=== PATIENT | male | born 1960 | race African-American/Black ===

== ENCOUNTER 2019-01-05 05:42 | Emergency (ER) | payer BC ==
[2019-01-05] MEDS ORDERED: ALBUTEROL 2.5 MG/3 ML NEB SOL ONE (07:24)
[2019-01-05] MEDS ORDERED: HYDROCODONE/CHLORPHEN 5 ML/OSYR ONE (07:25)
[2019-01-05] MEDS ORDERED: IPRATROPIUM BROM 0.5MG/2.5ML ONE (07:25)
[2019-01-05 07:47] LABS: Absolute Lymphocytes (CBC) 2.5 K/uL (0.7-4.9); Absolute Monocytes 0.9 K/uL (0.1-1.3); Basophils % 0.5 % (0-1.3); Eosinophils % 6.8 % (0-4.4); Hematocrit 43.1 % (39.6-49.0); Lymphocytes % 36.5 % (15.3-44.8); MPV 10.5 fL (7.6-11.3); Monocytes % 12.6 % (3.3-12.3); RBC Red Blood Cell Count 4.81 M/uL (4.33-5.43)
[2019-01-05 07:48] LABS: Protime INR 1.11
[2019-01-05 08:00] LABS: ALT/SGPT 94 U/L (12-78); AST/SGOT 72 U/L (15-37); Albumin 3.4 g/dL (3.4-5.0); Alkaline Phosphatase 75 U/L (45-117); BUN Blood Urea Nitrogen 13 mg/dL (7-18); Bicarbonate 29 mmol/L (21-32); Bilirubin Direct 0.1 mg/dL (0-0.2); Bilirubin Total 0.5 mg/dL (0.2-1.0); Glucose Level 101 mg/dL (74-106); NT PRO-BNP 47 pg/mL (<125); Potassium 3.7 mmol/L (3.5-5.1); Protein, Total 7.4 g/dL (6.4-8.2); Sodium Level 139 mmol/L (136-145); Troponin (Emerg Dept Use Only) < 0.02 ng/mL (0.0-0.045)
--- NOTE | 2019-01-05 08:16 | RAD REPORT ---
EXAM DESCRIPTION: RAD - Chest Pa And Lat (2 Views) - 01/05/2019 6:54 am CLINICAL HISTORY: COUGH Chest pain. COMPARISON: Chest Single View dated 10/12/2016; CHEST SINGLE VIEW dated 12/06/2015; CHEST SINGLE VIEW dated 05/29/2014; CHEST SINGLE VIEW dated 10/19/2013 FINDINGS: The lungs are clear. Chronic blunting the left costophrenic angle noted, likely pleural th ickening. The heart is mildly prominent size. No displaced fractures. IMPRESSION: No acute process demonstrated.
--- NOTE | 2019-01-05 08:34 | ER ---
Nurse's Notes [facility] Name: Cristopher Larson Age: 58 yrs Sex: Male : 1960 Arrival Date: 01/05/2019 Time: 05:46 Bed 5 Private MD: Jose Antonio Mccollum R Diagnosis: Acute bronchitis Presentation: 01/05 06:05 Presenting complaint: Patient states: "I have had real bad chest congestion and I have jd3 been running a fever off an on.". Transition of care: patient was not received from another setting of care. Onset of symptoms was January 05, 2019. Risk Assessment: Do you want to hurt yourself or someone else? Patient reports no desire to harm self or others. Initial Sepsis Screen: Does the patient meet any 2 criteria? No. Patient's initial sepsis screen is negative. Does the patient have a suspected source of infection? No. Patient's initial sepsis screen is negative. Care prior to arrival: None. 06:05 Method Of Arrival: Ambulatory jd3 06:05 Acuity: MARTY 3 jd3 Historical: - Allergies: 06:11 No Known Allergies; jd3 - Home Meds: 06:11 Albuterol Inhl [Active]; lisinopril-hydrochlorothiazide Oral 1 tab [Active]; Symbicort jd3 inhalation inhalation [Active]; Zolpidem Tartrate Oral [Active]; Omeprazole Oral [Active]; meloxicam oral oral [Active]; epclusa for hep C [Active]; - PMHx: 06:11 Hypertension; Hepatitis; Asthma; jd3 - PSHx: 06:11 left shoulder; jd3 - Immunization history:: Adult Immunizations up to date. - Social history:: Smoking status: Patient/guardian denies using tobacco. - Ebola Screening: : Patient negative for fever greater than or equal to 101.5 degrees Fahrenheit, and additional compatible Ebola Virus Disease symptoms. Screenin:14 Abuse screen: Denies threats or abuse. Nutritional screening: No deficits noted. jd3 Tuberculosis screening: No symptoms or risk factors identified. Fall Risk Ambulatory Aid- None/Bed Rest/Nurse Assist (0 pts). Gait- Normal/Bed Rest/Wheelchair (0 pts) Mental Status- Oriented to own ability (0 pts). Total Gooden Fall Scale indicates No Risk (0-24 pts). Assessment: 06:12 General: Appears in no apparent distress. uncomfortable, Behavior is calm, cooperative, jd3 appropriate for age. Pain: Complains of pain in chest Quality of pain is described as aching, pressure. Neuro: Level of Consciousness is awake, alert, obeys commands, Oriented to person, place, time, situation, Appropriate for age. Cardiovascular: Capillary refill < 3 seconds Patient's skin is warm and dry. Respiratory: Reports cough that is productive, pain with cough Airway is patent Respiratory effort is even, unlabored, Respiratory pattern is regular, symmetrical. GI: No signs and/or symptoms were reported involving the gastrointestinal system. : No signs and/or symptoms were reported regarding the genitourinary system. EENT: No signs and/or symptoms were reported regarding the EENT system. Derm: Skin is intact, Skin is dry, Skin is normal, Skin temperature is warm. Musculoskeletal: Circulation, motion, and sensation intact. Range of motion: intact in all extremities. 07:20 General: Appears in no apparent distress. comfortable, well developed, Behavior is sv calm, cooperative, appropriate for age. Pain: Complains of pain in chest Pain currently is 7 out of 10 on a pain scale. Quality of pain is described as aching, pressure, Is intermittent, episodic, Aggravated by coughing. Neuro: Level of Consciousness is awake, alert, obeys commands, Oriented to person, place, time, situation, Moves all extremities. Full function Gait is steady. Respiratory: Airway is patent Respiratory effort is even, unlabored, Respiratory pattern is regular, symmetrical. Derm: Skin is pink, warm \\T\\ dry. Musculoskeletal: Range of motion: intact in all extremities. 08:47 Reassessment: Patient appears in no apparent distress at this time. No changes from sv previously documented assessment. Patient and/or family updated on plan of care and expected duration. Pain level reassessed. Patient is alert, oriented x 3, equal unlabored respirations, skin warm/dry/pink. Vital Signs: 06:11 BP 141 / 86; Pulse 57; Resp 17 S; Temp 98.2(O); Pulse Ox 97% on R/A; Weight 90.72 kg jd3 (R); Height 5 ft. 7 in. (170.18 cm) (R); Pain 7/10; 07:34 BP 144 / 82; Pulse 60; Resp 18; Pulse Ox 95% on R/A; sv 08:33 BP 136 / 97; Pulse 60; Resp 15; Pulse Ox 100% ; sv 06:11 Body Mass Index 31.32 (90.72 kg, 170.18 cm) jd3 ED Course: 05:46 Patient arrived in ED. es 05:47 Jose Antonio Mccollum MD is Private Physician. es 06:05 Sean Larson RN is Primary Nurse. jd3 06:06 Triage completed. jd3 06:12 Arm band placed on. jd3 06:14 Patient has correct armband on for positive identification. Bed in low position. Call jd3 light in reach. Side rails up X 1. Adult w/ patient. 06:23 Wesley Velarde PA is PHCP. cp 06:23 Raz Roman MD is Attending Physician. cp 06:48 Patient moved to radiology via wheelchair. jb2 06:50 X-ray completed. Patient tolerated procedure well. Patient moved back from radiology. jb2 06:51 XRAY Chest Pa And Lat (2 Views) In Process Unspecified. EDMS 07:25 Initial lab(s) drawn, by wy, sent to lab. Flu and/or RSV swab sent to lab. Strep swab sv sent to lab. Inserted saline lock: 20 gauge in right antecubital area, using aseptic technique. Blood collected. Flushed right antecubital with 5 ml normal saline. 07:34 Influenza Screen (a \\T\\ B) Sent. sv 07:35 Primary Nurse role handed off by Sean Larson, BRIDGER sv 07:35 Gina Evans, BRIDGER is Primary Nurse. sv 07:37 EKG done, by air conditioning technician. reviewed by Wesley BRADSHAW. at1 08:01 Throat Culture Sent. sv 08:03 Awaiting lab results, Awaiting radiology results. sv 08:34 Jose Antonio Mccollum MD is Referral Physician. cp 08:47 No provider procedures requiring assistance completed. IV discontinued, intact, sv bleeding controlled, No redness/swelling at site. Pressure dressing applied. Administered Medications: 07:20 Drug: Albuterol 2.5 mg Route: Inhalation; sv 07:20 Drug: AtroVENT Aerosol 0.5 mg Route: Inhalation; sv 07:20 Drug: Tussionex Pennkinetic ER 5 ml Route: PO; sv 08:00 Follow up: Response: No adverse reaction sv Outcome: 08:34 Discharge ordered by . cp 08:48 Discharged to home ambulatory, with family. sv 08:48 Condition: stable 08:48 Discharge instructions given to patient, family, Instructed on discharge instructions, follow up and referral plans. medication usage, Demonstrated understanding of instructions, follow-up care, medications, Prescriptions given X 3. 08:50 Patient left the ED. sv Signatures: Dispatcher [employer] Gina Tompkins, RN RN Martina Lynch Jesse jb2 Kerline Perkins, staff air defense officer EKG Tat1 Wesley Velarde PA PA cp Davies, Jonathon RN RN jd3
--- NOTE | 2019-01-05 08:35 | EDPHYS ---
Physician Documentation [facility] Name: Cristopher Larson Age: 58 yrs Sex: Male : 1960 Arrival Date: 01/05/2019 Time: 05:46 Bed 5 Private MD: Jose Antonio Mccollum R ED Physician Raz Roman HPI: 01/05 06:45 This 58 yrs old Black Male presents to ER via Ambulatory with complaints of Fever, cp Chest Congestion, Chills. 06:45 The patient reports fever, not measured (subjective). Onset: The symptoms/episode cp began/occurred 2 day(s) ago. Associated signs and symptoms: Pertinent positives: cough, sore throat, chest congestion. Severity of symptoms: in the emergency department the symptoms are unchanged despite home interventions. Historical: - Allergies: 06:11 No Known Allergies; jd3 - Home Meds: 06:11 Albuterol Inhl [Active]; lisinopril-hydrochlorothiazide Oral 1 tab [Active]; Symbicort jd3 inhalation inhalation [Active]; Zolpidem Tartrate Oral [Active]; Omeprazole Oral [Active]; meloxicam oral oral [Active]; epclusa for hep C [Active]; - PMHx: 06:11 Hypertension; Hepatitis; Asthma; jd3 - PSHx: 06:11 left shoulder; jd3 - Immunization history:: Adult Immunizations up to date. - Social history:: Smoking status: Patient/guardian denies using tobacco. - Ebola Screening: : Patient negative for fever greater than or equal to 101.5 degrees Fahrenheit, and additional compatible Ebola Virus Disease symptoms. ROS: 07:00 Constitutional: Positive for body aches, Negative for fever, poor PO intake. cp 07:00 Eyes: Negative for injury, pain, redness, and discharge. cp 07:00 ENT: Positive for sore throat, Negative for ear pain, difficulty swallowing, difficulty cp handling secretions. 07:00 Cardiovascular: Negative for chest pain, edema. 07:00 Respiratory: Positive for cough, "sounds productive". 07:00 Abdomen/GI: Negative for vomiting, diarrhea, constipation. 07:00 Skin: Negative for rash. 07:00 Neuro: Negative for altered mental status, headache. 07:00 All other systems are negative. Exam: 07:05 Head/Face: Normocephalic, atraumatic. cp 07:05 Constitutional: The patient appears in no acute distress, alert, awake, non-diaphoretic, non-toxic, well developed, well nourished. 07:05 Eyes: Periorbital structures: appear normal, Conjunctiva: normal, no exudate, no injection, Sclera: no appreciated abnormality, Lids and lashes: appear normal, bilaterally. 07:05 ENT: External ear(s): are unremarkable, Ear canal(s): are normal, clear, TM's: bulging, is not appreciated, bilaterally, dullness, bilaterally, erythema, is not appreciated, bilaterally, Nose: is normal, Mouth: Lips: moist, Oral mucosa: moist, Posterior pharynx: Airway: no evidence of obstruction, patent, Tonsils: no enlargement, no exudate, Uvula: midline, erythema, that is mild, exudate, is not appreciated. 07:05 Neck: ROM/movement: is normal, is supple, without pain, no range of motions limitations, no meningismus, no nuchal rigidity. 07:05 Chest/axilla: Inspection: normal, Palpation: is normal, no crepitus, no tenderness. 07:05 Cardiovascular: Rate: bradycardic, Rhythm: regular, Edema: is not appreciated, JVD: is not appreciated. 07:05 Respiratory: the patient does not display signs of respiratory distress, Respirations: cp normal, no retractions, no splinting, no tachypnea, labored breathing, is not present, Breath sounds: stridor, is not appreciated, + upper airway congestion. wheezing: that is mild, is heard diffusely. 07:05 Abdomen/GI: Inspection: abdomen appears normal, Bowel sounds: active, all quadrants, Palpation: abdomen is soft and non-tender, in all quadrants, involuntary guarding, is not appreciated. 07:05 Back: pain, is absent, ROM is normal. 07:05 Skin: cellulitis, is not appreciated, no rash present. 07:05 Neuro: Orientation: to person, place \\T\\ time. Mentation: is normal, Cerebellar function: is grossly normal, Motor: moves all fours, strength is normal, Sensation: is normal. Vital Signs: 06:11 BP 141 / 86; Pulse 57; Resp 17 S; Temp 98.2(O); Pulse Ox 97% on R/A; Weight 90.72 kg jd3 (R); Height 5 ft. 7 in. (170.18 cm) (R); Pain 7/10; 07:34 BP 144 / 82; Pulse 60; Resp 18; Pulse Ox 95% on R/A; sv 08:33 BP 136 / 97; Pulse 60; Resp 15; Pulse Ox 100% ; sv 06:11 Body Mass Index 31.32 (90.72 kg, 170.18 cm) jd3 MDM: 06:23 Patient medically screened. cp 07:00 Differential diagnosis: viral Infection, bacterial infection, pneumonia influenza, CHF. cp 08:33 Data reviewed: vital signs, nurses notes, lab test result(s), EKG, radiologic studies, cp plain films, and as a result, I will discharge patient. 08:33 Test interpretation: by ED physician or midlevel provider: ECG, plain radiologic cp studies. 08:33 Counseling: I had a detailed discussion with the patient and/or guardian regarding: the cp historical points, exam findings, and any diagnostic results supporting the discharge/admit diagnosis, lab results, radiology results, to return to the emergency department if symptoms worsen or persist or if there are any questions or concerns that arise at home. Response to treatment: the patient's symptoms have markedly improved after treatment, and as a result, I will discharge patient. 01/05 06:42 Order name: Influenza Screen (a \\T\\ B) 01/05 06:42 Order name: Strep; Complete Time: 08:18 01/05 06:42 Order name: Basic Metabolic Panel; Complete Time: 08:18 01/05 06:42 Order name: CBC with Diff; Complete Time: 08:18 01/05 08:31 Interpretation: Normal except: MN% 12.6; EOSINOPHIL % 6.8. 01/05 06:42 Order name: LFT's; Complete Time: 08:18 01/05 08:31 Interpretation: Normal except: AST 72; ALT 94; GLOB 4.0; A/G 0.9. 01/05 06:42 Order name: Magnesium; Complete Time: 08:18 01/05 06:42 Order name: XRAY Chest Pa And Lat (2 Views); Complete Time: 08:18 01/05 06:42 Order name: NT PRO-BNP; Complete Time: 08:18 cp 01/05 06:42 Order name: PT-INR; Complete Time: 08:18 cp 01/05 06:42 Order name: Troponin (emerg Dept Use Only); Complete Time: 08:18 cp 01/05 06:43 Order name: Influenza Screen (A ; Complete Time: 08:18 EDMS 01/05 07:59 Order name: Throat Culture EDMS 01/05 06:42 Order name: EKG; Complete Time: 06:43 cp 01/05 06:42 Order name: Cardiac monitoring; Complete Time: 07:34 cp 01/05 06:42 Order name: EKG - Nurse/Tech; Complete Time: 07:34 cp 01/05 06:42 Order name: IV Saline Lock; Complete Time: 07:34 cp 01/05 06:42 Order name: Labs collected and sent; Complete Time: 07:34 cp 01/05 06:42 Order name: O2 Per Protocol; Complete Time: 06:59 cp 01/05 06:42 Order name: O2 Sat Monitoring; Complete Time: 06:59 cp Administered Medications: 07:20 Drug: Albuterol 2.5 mg Route: Inhalation; sv 07:20 Drug: AtroVENT Aerosol 0.5 mg Route: Inhalation; sv 07:20 Drug: Tussionex Pennkinetic ER 5 ml Route: PO; sv 08:00 Follow up: Response: No adverse reaction sv Disposition: 23:20 Co-signature as Attending Physician, Raz Roman MD. gs Disposition: 01/05/19 08:34 Discharged to Home. Impression: Acute bronchitis. - Condition is Stable. - Discharge Instructions: Acute Bronchitis, Adult. - Prescriptions for Tessalon Perles 100 mg Oral Capsule - take 2 capsule by ORAL route every 8 hours As needed; 20 capsule. Zithromax Z- Tree 250 mg Oral Tablet - take 1 tablet by ORAL route as directed for 5 days Day 1 - take two (2) tablets one time. Day 2, 3, 4 , 5 take one (1) tablet once daily.; 6 tablet. Medrol (Tree) 4 mg Oral Tablets, Dose Pack - take 1 tablet by ORAL route as directed - follow package instructions; 1 packet. - Work release form, Medication Reconciliation Form, Thank You Letter, Antibiotic Education, Prescription Opioid Use form. - Follow up: Jose Antonio Mccollum MD; When: 2 - 3 days; Reason: Recheck today's complaints. - Problem is new. - Symptoms have improved. Signatures: Dispatcher [employer] Gina Tompkins, RN RN Wesley Ferris PA PA cp Starr, Gregory, MD MD gs Davies, Jonathon, RN RN jd3 Corrections: (The following items were deleted from the chart) 08:50 08:34 01/05/2019 08:34 Discharged to Home. Impression: Acute bronchitis. Condition is sv Stable. Forms are Medication Reconciliation Form, Thank You Letter, Antibiotic Education, Prescription Opioid Use. Follow up: Jose Antonio Mccollum; When: 2 - 3 days; Reason: Recheck today's complaints. Problem is new. Symptoms have improved. cp
[2019-01-05 09:11] VITALS: TEMP 98.2
[2019-01-05 09:13] VITALS: BP 136/97; O2SAT 100
--- NOTE | 2019-01-06 10:29 | EKG ---
Test Date: 2019-01-05 Test Time: 07:33:03 [employer]sembler [employer] Line: FLORI MEASUREMENT RESULTS: Intervals: Rate: 52 WI: 146 QRSD: 150 QT: 492 QTc: 457 [place]: P: 23 WI: 146 QRS: 29 T: -39 INTERPRETIVE STATEMENTS: Sinus bradycardia Right bundle branch block T wave abnormality, consider inferolateral ischemia Abnormal ECG Compared to ECG 10/12/2016 09:04:17 Right bundle-branch block now present T-wave abnormality still present Possible ischemia still present Electronically Signed On 01-05-19 08:08:44 CDT by Carlos Eduardo Bradford
== END 2019-01-05 08:50 | disposition home or self-care (01) ==
LOC: ER 05:42
DX: J20.9 Acute bronchitis, unspecified (principal); I10 Essential (primary) hypertension; J45.909 Unspecified asthma, uncomplicated
CPT/HCPCS: 36415; 71046; 80048; 80076; 83735; 83880; 84484; 85025; 85610; 87070; 87081; 87804; 93005; 99284

== ENCOUNTER 2019-04-19 06:18 | Emergency (ER) | payer BC ==
[2019-04-19 07:11] LABS: Absolute Lymphocytes (CBC) 2.8 K/uL (0.7-4.9); Basophils % 0.5 % (0-1.3); Eosinophils % 8.1 % (0-4.4); Hematocrit 42.5 % (39.6-49.0); Lymphocytes % 40.3 % (15.3-44.8); MPV 10.5 fL (7.6-11.3); Monocytes % 10.6 % (3.3-12.3); RBC Red Blood Cell Count 4.63 M/uL (4.33-5.43)
[2019-04-19 07:12] LABS: Protime INR 0.99
--- NOTE | 2019-04-19 07:18 | RAD REPORT ---
EXAM DESCRIPTION: CT - Ct Stroke Brain Wo Cont - 04/19/2019 6:52 am CLINICAL HISTORY: Weakness, dizziness, altered mental status CLINICAL HISTORY: None. TECHNIQUE: Axial 5 millimeter thick images of the head were obtained without IV contrast. All CT scans are performed using dose optimization technique as appropriate and may include automated exposure control or mA/KV adjustment according to patient size. FINDINGS: No intracranial hemorrhage, mass, or cerebral edema. No acute infarction identifiable. No extra-axial fluid collections. Cadet matter-white matter differentiation is preserved. Visualized portions of the mastoid air cells, paranasal sinuses, and orbits are unremarkable. Findings telephoned to the referring clinician [id number] hours IMPRESSION: No CT evidence of acute intracranial process.
[2019-04-19 07:20] LABS: BUN Blood Urea Nitrogen 16 mg/dL (7-18); Bicarbonate 27 mmol/L (21-32); Creatine Phosphokinase 993 U/L (39-308); Glucose Level 105 mg/dL (74-106); Potassium 3.6 mmol/L (3.5-5.1); Sodium Level 140 mmol/L (136-145)
[2019-04-19 08:06] LABS: Barbiturates NEGATIVE (NEGATIVE); Benzodiazepines NEGATIVE (NEGATIVE); Cocaine NEGATIVE (NEGATIVE); METHAMPHETAM NEGATIVE (NEGATIVE); Methadone NEGATIVE (NEGATIVE); Opiates NEGATIVE (NEGATIVE); Phencyclidine NEGATIVE (NEGATIVE); THC Cannibis NEGATIVE (NEGATIVE)
[2019-04-19] MEDS ORDERED: NA CHLORIDE 0.9% 1,000 ML ONE (08:07)
[2019-04-19 08:15] LABS: Troponin (Emerg Dept Use Only) < 0.02 ng/mL (0.0-0.045)
[2019-04-19 08:20] LABS: CKMB Creatine Kinase MB 10.8 ng/mL (0.3-3.6)
--- NOTE | 2019-04-19 09:15 | RAD REPORT ---
EXAM DESCRIPTION: RAD - Chest Single View - 04/19/2019 7:04 am CLINICAL HISTORY: Stroke protocol chest film, shortness of breath COMPARISON: December 2018 TECHNIQUE: AP portable chest image was obtained 0659 hours . FINDINGS: Lungs are clear. Heart and vasculature are normal. No measurable pleural effusion and no p neumothorax. No acute bony abnormality seen. No acute aortic findings suspected. IMPRESSION: No acute cardiopulmonary process. No significant interval change.
[2019-04-19 09:26] LABS: Urine Blood TRACE (NEG); Urine Glucose NEGATIVE (NEG); Urine Protein 2+ (NEG)
--- NOTE | 2019-04-19 09:57 | RAD REPORT ---
EXAM DESCRIPTION: MRI - Brain Wo Cont - 04/19/2019 9:41 am CLINICAL HISTORY: Weakness, dizziness, stroke-like symptoms COMPARISON: CT head April 19 TECHNIQUE: Sagittal T1-weighted images were obtained along with axial PD, heavily T2-weighted and T2 -FLAIR images. Axial DWI and ADC mapping sequences were also obtained along with coronal heavily T2-w eighted images. FINDINGS: No intracranial hemorrhage, mass or acute infarction. There is no edema or shift of midlin e structures. No extra-axial fluid collections. Cadet-matter/white matter junction is preserved. Signa l voids are seen as a normal finding in the major intracranial vessels. No atrophy or chronic ischemic changes. No sella or supra sella suspicious finding. Pituitary gland i s upper normal. Mastoid air cells and paranasal sinuses are clear. IMPRESSION: No acute infarction changes. No acute intracranial finding.
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
[2019-04-19 10:32] VITALS: TEMP 98.4
[2019-04-19 10:36] VITALS: BP 143/81; O2SAT 97
--- NOTE | 2019-04-19 14:49 | EKG ---
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
== END 2019-04-19 10:21 | disposition home or self-care (01) ==
LOC: ER 06:18
DX: R42 Dizziness and giddiness (principal); R53.1 Weakness; J45.909 Unspecified asthma, uncomplicated; I10 Essential (primary) hypertension; K75.9 Inflammatory liver disease, unspecified
CPT/HCPCS: 36415; 70450; 70551; 71045; 80048; 80307; 81003; 82140; 82550; 82553; 82962; 84484; 85025; 85610; 85730; 93005; 96360; 99285; J7030

== ENCOUNTER 2020-06-24 19:56 | Emergency (ER) | payer BC ==
[2012-07-14 08:03] VITALS: BP 142/98
[2020-06-24 20:47] LABS: Absolute Lymphocytes (CBC) 2.2 K/uL (0.7-4.9); Basophils % 0.8 % (0-1.3); Hematocrit 42.6 % (39.6-49.0); MPV 10.7 fL (7.6-11.3); RBC Red Blood Cell Count 4.78 M/uL (4.33-5.43)
[2020-06-24 20:50] LABS: Protime INR 1.02
[2020-06-24 20:58] LABS: BUN Blood Urea Nitrogen 14 mg/dL (7-18); Bicarbonate 27 mmol/L (21-32); Glucose Level 95 mg/dL (74-106); Potassium 3.6 mmol/L (3.5-5.1); Sodium Level 141 mmol/L (136-145)
[2020-06-24 21:14] LABS: Platelet Estimate ADEQ; White Blood Cell Scan OK
[2020-06-24 21:15] LABS: Blood Morphology Comment NOT SEEN (NOT SEEN); Platelets, Giant NOTED
[2020-06-24] MEDS ORDERED: ONDANSETRON 4 MG/2 ML VIAL ONE (21:19)
[2020-06-24] MEDS ORDERED: TETANUS & DIPHTHERIA TOX,ADULT 0.5 ML VIAL ONE (21:19)
[2020-06-24] MEDS ORDERED: MORPHINE 4 MG/ML SYR ONE (21:19)
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
[2020-06-25] MEDS ORDERED: MORPHINE 2 MG/ML SYR ONE (02:26)
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
== END 2020-06-25 02:43 | disposition short-term general hospital (02) ==
LOC: ER 19:56
DX: S13.100A Subluxation of unspecified cervical vertebrae, initial encounter (principal); S02.30XA Fracture of orbital floor, unspecified side, initial encounter for closed fracture; V28.0XXA Motorcycle driver injured in noncollision transport accident in nontraffic accident, initial encounter; I10 Essential (primary) hypertension; Z23 Encounter for immunization
CPT/HCPCS: 85025; 80048; 36415; 86900; 86850; 85610; 82565; 86901; 85730; 70450; 72125; 71260; 70486; 76377; 74177; 73130 ×2; 73110; 73562; 90714; Q9967; J2270; J2405; 90471; 96374; 96375; 99285

== ENCOUNTER 2021-02-03 21:10 | Emergency (ER) | payer BC ==
[2012-07-14 08:03] VITALS: BP 142/98
--- OUTSIDE RECORDS SUMMARY | 2021-02-03 21:13 | XMS REPORT | Continuity of Care Document ---
:1960 Author Organization [facility] t Address [address] [place] [address] Care Team Providers Name Role Phone Unavailable Unavailable Unavailable Problems This patient has no known problems. Allergies, Adverse Reactions, Alerts This patient has no known allergies or adverse reactions. Medications This patient has no known medications. Procedures This patient has no known procedures. Encounters Start End Encounter Admission Attending Care Care Encounter Source Date/Time Date/Time Type Type Clinicians Facility Department ID 2021-01-17 2021-01-17 [id number] 2020-10-05 2020-10-05 [facility] [id number] 2020-09-14 2020-09-14 [facility] [id number] [facility] 2020-08-31 2020-08-31 [facility] [id number] [facility] 2020-08-28 2020-08-28 [facility] [id number] 2020-08-24 2020-08-[facility] [id number] Results This patient has no known results.
[2021-02-03 23:29] LABS: Absolute Lymphocytes (CBC) 2.3 K/uL (0.7-4.9); Basophils % 0.6 % (0-1.3); Hematocrit 37.6 % (39.6-49.0); Lymphocytes % 27.6 % (15.3-44.8); MPV 9.7 fL (7.6-11.3); RBC Red Blood Cell Count 4.18 M/uL (4.33-5.43)
[2021-02-03 23:43] LABS: ALT/SGPT 38 U/L (12-78); AST/SGOT 31 U/L (15-37); Albumin 3.6 g/dL (3.4-5.0); Alkaline Phosphatase 79 U/L (45-117); BUN Blood Urea Nitrogen 14 mg/dL (7-18); Bicarbonate 29 mmol/L (21-32); Bilirubin Direct < 0.1 mg/dL (0-0.2); Bilirubin Total 0.3 mg/dL (0.2-1.0); Glucose Level 115 mg/dL (74-106); Magnesium 1.9 mg/dL (1.8-2.4); NT PRO-BNP 35 pg/mL (<125); Potassium 3.6 mmol/L (3.5-5.1); Protein, Total 7.5 g/dL (6.4-8.2); Sodium Level 143 mmol/L (136-145); Troponin (Emerg Dept Use Only) < 0.02 ng/mL (0.0-0.045)
[2021-02-03 23:49] LABS: Protime INR 1.08
[2021-02-04] MEDS ORDERED: FUROSEMIDE 20 MG/ 2ML VIAL ONE (00:46)
--- NOTE | 2021-02-04 01:04 | ER ---
Nurse's Notes [facility] Name: Cristopher Larson Age: 60 yrs Sex: Male : 1960 Arrival Date: 02/03/2021 Time: 21:12 Bed 5 Private MD: Diagnosis: Edema, unspecified Presentation: 02/03 21:56 Chief complaint: Patient states: he is having shortness of breath, fatigue, swelling of bb the lower extremities for "some days". Coronavirus screen: At this time, the client does not indicate any symptoms associated with coronavirus-19. Ebola Screen: No symptoms or risks identified at this time. Initial Sepsis Screen: Does the patient meet any 2 criteria? No. Patient's initial sepsis screen is negative. Does the patient have a suspected source of infection? No. Patient's initial sepsis screen is negative. Risk Assessment: Do you want to hurt yourself or someone else? Patient reports no desire to harm self or others. Onset of symptoms is unknown. 21:56 Method Of Arrival: Ambulatory bb 21:56 Acuity: MARTY 3 bb Triage Assessment: 21:59 General: Appears in no apparent distress. Behavior is calm, cooperative. Pain: Denies bb pain. Respiratory: Reports shortness of breath at rest on exertion Respiratory effort is even, unlabored, Respiratory pattern is regular, Onset: The symptoms/episode began/occurred at an unknown time. the patient has mild shortness of breath. Musculoskeletal: Swelling present in bilateral lower extremities. Historical: - Allergies: 21:59 No Known Allergies; bb - Home Meds: 21:59 Albuterol Inhl [Active]; lisinopril-hydrochlorothiazide Oral 1 tab [Active]; meloxicam bb Oral [Active]; Symbicort inhalation [Active]; amlodipine oral [Active]; Trazodone Oral [Active]; Omeprazole Oral [Active]; Hydroxyzine Oral [Active]; - PMHx: 21:59 Asthma; Hepatitis; Hypertension; bb - PSHx: 21:59 shoulder surgery; bb - Immunization history:: Adult Immunizations up to date, Client reports receiving the 2nd dose of the Covid vaccine. - Social history:: Smoking status: Patient denies any tobacco usage or history of. Patient/guardian denies using alcohol, street drugs. Screenin:00 Abuse screen: Denies threats or abuse. Denies injuries from another. Nutritional screening: No deficits noted. Tuberculosis screening: No symptoms or risk factors identified. Fall Risk None identified. Assessment: 23:00 General: Appears in no apparent distress. Behavior is calm, cooperative, appropriate wh for age. Pain: Denies pain. Neuro: Level of Consciousness is awake, alert, obeys commands, Oriented to person, place, time, situation, Appropriate for age. Cardiovascular: Heart tones S1 S2 Rhythm is regular. Cardiovascular: Edema pitting to left ankle and right ankle. Respiratory: Airway is patent Respiratory effort is even, unlabored, Respiratory pattern is regular, symmetrical, Breath sounds are clear bilaterally. Respiratory: Reports shortness of breath on exertion. GI: Abdomen is round. : No signs and/or symptoms were reported regarding the genitourinary system. EENT: No signs and/or symptoms were reported regarding the EENT system. Derm: Skin is intact, is healthy with good turgor, Skin is pink, warm \\T\\ dry. normal. Musculoskeletal: Circulation, motion, and sensation intact. 02/04 00:15 Reassessment: Patient appears in no apparent distress at this time. No changes from previously documented assessment. Patient and/or family updated on plan of care and expected duration. Pain level reassessed. Patient is alert, oriented x 3, equal unlabored respirations, skin warm/dry/pink. 01:30 Reassessment: Patient appears in no apparent distress at this time. Patient and/or family updated on plan of care and expected duration. Pain level reassessed. Patient is alert, oriented x 3, equal unlabored respirations, skin warm/dry/pink. Vital Signs: 02/03 21:56 BP 129 / 84; Pulse 64; Resp 16 S; Temp 98.1(O); Pulse Ox 97% on R/A; Weight 104.33 kg bb (R); Height 5 ft. 7 in. (170.18 cm) (R); Pain 0/10; 02/04 00:00 BP 115 / 79; Pulse 57; Resp 18; Pulse Ox 95% on R/A; 01:15 BP 119 / 69; Pulse 59; Resp 18; Pulse Ox 95% on R/A; 02/03 21:56 Body Mass Index 36.02 (104.33 kg, 170.18 cm) ED Course: 02/03 21:12 Patient arrived in ED. cl3 21:57 Triage completed. bb 21:59 Arm band placed on Patient placed in waiting room, Patient notified of wait time. bb Family accompanied patient. 22:40 Wesley Velarde PA is PHCP. cp 22:40 Marcin Gutierrez MD is Attending Physician. cp 22:40 Mikhail Soni, RN is Primary Nurse. 23:00 Patient has correct armband on for positive identification. Bed in low position. Call light in reach. Side rails up X 1. monitoring engineer on. Pulse ox on. NIBP on. 23:22 Inserted saline lock: 20 gauge in right antecubital area, using aseptic technique. oe Blood collected. 23:41 US Extremity Venous W Compression Pawan In Process Unspecified. EDMS 02/04 01:02 Darrin Solorzano MD is Referral Physician. cp 01:41 No provider procedures requiring assistance completed. IV discontinued, intact, bleeding controlled, No redness/swelling at site. 03:55 XRAY Chest (1 view) In Process Unspecified. EDMS Administered Medications: 00:31 Drug: Lasix (furosemide) 20 mg Route: IVP; Site: right antecubital; 01:41 Follow up: Response: No adverse reaction Outcome: 01:03 Discharge ordered by . cp 01:41 Discharged to home ambulatory, with family. 01:41 Condition: stable 01:41 Discharge instructions given to patient, family, Instructed on discharge instructions, follow up and referral plans. medication usage, POC Demonstrated understanding of instructions, follow-up care, medications, POC Prescriptions given X 1. 01:42 Patient left the ED. Signatures: Dispatcher [employer] EDMS April Reinoso RN RN Wesley Valenzuela PA PA cp Ramsey Chapin oe Mikhail Soni RN RN Moreno Bar cl3
--- NOTE | 2021-02-04 01:04 | EDPHYS ---
Physician Documentation [facility] Name: Cristopher Black Age: 60 yrs Sex: Male : 1960 Arrival Date: 02/03/2021 Time: 21:12 Bed 5 Private MD: ED Physician Marcin Gutierrez HPI: 02/03 22:05 This 60 yrs old Black Male presents to ER via Ambulatory with complaints of Shortness cp Of Breath, Leg Swelling. 22:05 The patient has shortness of breath during heavy activity. Onset: The symptoms/episode cp began/occurred gradually. 22:05 Associated signs and symptoms: Pertinent negatives: chest pain, non-productive cough, cp productive cough, diaphoresis, fever. Historical: - Allergies: 21:59 No Known Allergies; bb - Home Meds: 21:59 Albuterol Inhl [Active]; lisinopril-hydrochlorothiazide Oral 1 tab [Active]; meloxicam bb Oral [Active]; Symbicort inhalation [Active]; amlodipine oral [Active]; Trazodone Oral [Active]; Omeprazole Oral [Active]; Hydroxyzine Oral [Active]; - PMHx: 21:59 Asthma; Hepatitis; Hypertension; bb - PSHx: 21:59 shoulder surgery; bb - Immunization history:: Adult Immunizations up to date, Client reports receiving the 2nd dose of the Covid vaccine. - Social history:: Smoking status: Patient denies any tobacco usage or history of. Patient/guardian denies using alcohol, street drugs. ROS: 22:10 Constitutional: Negative for body aches, chills, fever, poor PO intake. cp 22:10 Eyes: Negative for injury, pain, redness, and discharge. cp 22:10 ENT: Negative for ear pain, sore throat, difficulty swallowing, difficulty handling secretions. 22:10 Cardiovascular: Positive for edema, Negative for chest pain, palpitations. 22:10 Respiratory: Positive for shortness of breath, on exertion. Negative for cough, wheezing. 22:10 Abdomen/GI: Negative for abdominal pain, nausea, vomiting, and diarrhea. 22:10 Neuro: Negative for altered mental status, headache, weakness. 22:10 All other systems are negative. Exam: 22:15 Constitutional: The patient appears in no acute distress, alert, awake, cp non-diaphoretic, non-toxic, well developed, well nourished, obese. 22:15 Head/Face: Normocephalic, atraumatic. cp 22:15 Eyes: Periorbital structures: appear normal, Conjunctiva: normal, no exudate, no cp injection, Sclera: no appreciated abnormality, Lids and lashes: appear normal, bilaterally. 22:15 ENT: External ear(s): are unremarkable, Nose: is normal, Mouth: Lips: moist, Posterior pharynx: Airway: no evidence of obstruction, patent. 22:15 Neck: ROM/movement: is normal, is supple, without pain, no range of motions limitations. 22:15 Chest/axilla: Inspection: normal, Palpation: is normal, no crepitus, no tenderness. 22:15 Cardiovascular: Rate: normal, Rhythm: regular, Edema: ankle edema, that is mild, JVD: is not appreciated. 22:15 Respiratory: the patient does not display signs of respiratory distress, Respirations: normal, no use of accessory muscles, no retractions, labored breathing, is not present, Breath sounds: are clear throughout, no decreased breath sounds, no stridor, no wheezing. 22:15 Abdomen/GI: Inspection: abdomen appears normal, Palpation: abdomen is soft and non-tender, in all quadrants. 22:15 Back: pain, is absent, ROM is normal. 22:15 Skin: no rash present. 22:15 Neuro: Orientation: to person, place \T\ time. Mentation: is normal, Cerebellar function: is grossly normal, Motor: is normal, Sensation: is normal. 23:10 ECG was reviewed by the Attending Physician. cp Vital Signs: 21:56 BP 129 / 84; Pulse 64; Resp 16 S; Temp 98.1(O); Pulse Ox 97% on R/A; Weight 104.33 kg bb (R); Height 5 ft. 7 in. (170.18 cm) (R); Pain 0/10; 04/12 00:00 BP 115 / 79; Pulse 57; Resp 18; Pulse Ox 95% on R/A; wh 01:15 BP 119 / 69; Pulse 59; Resp 18; Pulse Ox 95% on R/A; wh 02/03 21:56 Body Mass Index 36.02 (104.33 kg, 170.18 cm) bb MDM: 04/11 22:52 Patient medically screened. 23:00 Differential diagnosis: asthma, CHF exacerbation, Myocardial Infarction pulmonary cp edema, Pulmonary Embolism Unstable Angina. 02/04 01:02 Data reviewed: vital signs, nurses notes, lab test result(s), EKG, radiologic studies, cp plain films. 01:02 Test interpretation: by ED physician or midlevel provider: ECG, plain radiologic cp studies. Counseling: I had a detailed discussion with the patient and/or guardian regarding: the historical points, exam findings, and any diagnostic results supporting the discharge/admit diagnosis, lab results, radiology results, the need for outpatient follow up, a administrative assistant front desk, to return to the emergency department if symptoms worsen or persist or if there are any questions or concerns that arise at home. 02/03 22:59 Order name: Basic Metabolic Panel 02/03 22:59 Order name: CBC with Diff; Complete Time: 00:14 02/04 00:14 Interpretation: Normal except: WBC 8.40; RBC 4.18; HGB 12.4; HCT 37.6; EOSINOPHIL % 5.0. 02/03 22:59 Order name: LFT's; Complete Time: 00:14 02/03 22:59 Order name: Magnesium; Complete Time: 00:14 02/03 22:59 Order name: NT PRO-BNP; Complete Time: 00:14 02/04 01:06 Interpretation: NT PRO-BNP 35; Reviewed. 02/03 22:59 Order name: PT-INR; Complete Time: 00:14 02/03 22:59 Order name: US Extremity Venous W Compression Pawan 02/03 22:59 Order name: Troponin (emerg Dept Use Only); Complete Time: 00:14 02/03 22:59 Order name: XRAY Chest (1 view) 02/03 22:59 Order name: EKG; Complete Time: 23:00 02/03 22:59 Order name: Basic Metabolic Panel; Complete Time: 00:14 EDMS 02/04 01:05 Interpretation: Normal except: CL 109; GLUC 115; GFR 84; CA 8.3. 02/03 23:44 Order name: D-Dimer; Complete Time: 00:14 EDCO 02/03 22:59 Order name: Cardiac monitoring; Complete Time: 23:16 02/03 22:59 Order name: EKG - Nurse/Tech; Complete Time: 23:16 cp 02/03 22:59 Order name: IV Saline Lock; Complete Time: 23:16 cp 02/03 22:59 Order name: Labs collected and sent; Complete Time: 23:16 cp 02/03 22:59 Order name: O2 Per Protocol; Complete Time: 23:16 cp 02/03 22:59 Order name: O2 Sat Monitoring; Complete Time: 23:16 cp EC/11 23:10 Rate is 56 beats/min. Rhythm is regular. VA interval is normal. QRS interval is cp prolonged at 150 msec. QT interval is normal. T waves are Inverted in leads II, III, aVF, V4, V5, V6. Interpreted by me. Reviewed by me. Administered Medications: 02/04 00:31 Drug: Lasix (furosemide) 20 mg Route: IVP; Site: right antecubital; 01:41 Follow up: Response: No adverse reaction Disposition: 04:46 Co-signature as Attending Physician, Marcin Gutierrez MD. ma2 Disposition: 02/04/21 01:03 Discharged to Home. Impression: Edema, unspecified. - Condition is Stable. - Discharge Instructions: Peripheral Edema, Edema. - Prescriptions for Lasix 20 mg Oral Tablet - take 1 tablet by ORAL route once daily for 5 days; 5 tablet. - Medication Reconciliation Form, Thank You Letter, Antibiotic Education, Prescription Opioid Use, Work release form form. - Follow up: Darrin Solorzano MD; When: 2 - 3 days; Reason: Recheck today's complaints. - Problem is new. - Symptoms have improved. Signatures: Dispatcher [employer] [facility] April Reinoso, RN RN Wesley Valenzuela PA PA cp Habalo, Winsy RN RN Marcin Gutierrez MD MD ma2 Corrections: (The following items were deleted from the chart) 02/03 23:44 23:38 D-DIMER+COAG.LAB.BRZ ordered. [facility] 02/04 01:05 00:15 Normal except: CL 109; GLUC 115; GFR 84. cp cp 01:42 01:03 02/04/2021 01:03 Discharged to Home. Impression: Edema, unspecified. Condition is wh Stable. Forms are Medication Reconciliation Form, Thank You Letter, Antibiotic Education, Prescription Opioid Use. Follow up: Darrin Solorzano; When: 2 - 3 days; Reason: Recheck today's complaints. Problem is new. Symptoms have improved. cp
--- NOTE | 2021-02-04 07:14 | EKG ---
Test Date: 2021-02-03 Test Time: 23:07:02 [place]: DRU MEASUREMENT RESULTS: Intervals: Rate: 56 SD: 146 QRSD: 150 QT: 476 QTc: 459 [place]: P: 33 SD: 146 QRS: 49 T: -48 INTERPRETIVE STATEMENTS: Sinus bradycardia Right bundle branch block T wave abnormality, consider inferolateral ischemia Abnormal ECG Compared to ECG 08/31/2020 12:38:45 Sinus rhythm no longer present T-wave abnormality still present Possible ischemia still present Electronically Signed On 02-04-21 07:13:53 CDT by Darrin Solorzano
--- NOTE | 2021-02-04 07:57 | RAD REPORT ---
EXAM DESCRIPTION: USExtrem Venous W Compress Bil02/03/2021 11:47 pm CLINICAL HISTORY: Leg swelling COMPARISON: none FINDINGS: The common femoral, superficial femoral, popliteal and posterior tibial veins bilaterally are compressible and demonstrate augmentation. Doppler demonstrates good flow. IMPRESSION: No evidence of deep venous thrombosis involving either lower extremity.
--- NOTE | 2021-02-04 07:59 | RAD REPORT ---
EXAM DESCRIPTION: Derek Single View02/04/2021 3:55 am CLINICAL HISTORY: Shortness of breath COMPARISON: 2019 FINDINGS: The lungs appear clear of acute infiltrate. The heart is normal size IMPRESSION: No acute abnormalities displayed
== END 2021-02-04 01:42 | disposition home or self-care (01) ==
LOC: ER 21:10
DX: R60.9 Edema, unspecified (principal); J45.909 Unspecified asthma, uncomplicated; I10 Essential (primary) hypertension
CPT/HCPCS: 93005; 85025; 80048; 36415; 83735; 85610; 85379; 80076; 84484; 83880; 71045; 93970; J1940; 96374; 99284

== ENCOUNTER 2022-06-27 20:41 | Emergency (ER) | payer BC ==
--- OUTSIDE RECORDS SUMMARY | 2022-06-27 21:20 | XMS REPORT | Continuity of Care Document ---
:1960 Author Organization [facility] t Address [address] [place] [address] Care Team Providers Name Role Phone Naresh Rhoades Attending Clinician Unavailable Janet Nuñez Attending Clinician Unavailable PRICILLA CARRINGTON Attending Clinician Unavailable Payers Payer Name Policy Type Policy Number Effective Date Expiration Date S [facility] [id number] 2014 00:00:00 Problems This patient has no known problems. Allergies, Adverse Reactions, Alerts Allergy Allergy Status Severity Reaction(s) Onset Inactive Treating Comm ents Source Name Type Date Date Clinician NO KNOWN Drug Active [facility] Medications This patient has no known medications. Procedures This patient has no known procedures. Encounters Start End Encounter Admission Attending Care Care Encounter Source Date/Time Date/Time Type Type Clinicians Facility Department ID 2021-11-20 Outpatient Rhoades, [facility] [id number] Common 14:04:32 Naresh [id number] [facility] 2021-11-20 Outpatient [facility], [facility] [id number] Common 13:50:27 Naresh [id number] [facility] 2021-11-20 Outpatient [facility] [id number] Common 13:41:58 Naresh [id number] [facility] 2021-11-20 Outpatient Rhoades, [facility] [id number] Common 13:09:12 Naresh [id number] [facility] 2021-11-20 Outpatient Rhoades, [facility] [id number] Common 13:07:29 Naresh [id number] [facility] 2021-11-20 Outpatient Rhoades, [facility] [id number] Common 13:05:13 Naresh [id number] [facility] 2021-11-20 Outpatient Rhoades, [facility] [id number] Common 13:04:48 [facility] 82393 [facility] 2021-11-20 Outpatient [facility] [id number] Common 12:44:19 [id number] [facility] 2021-11-20 Outpatient Joaquin, [facility] [id number] Common 12:12:37 Janet [id number] [facility] 2021-11-20 Outpatient Joaquin, [facility] [id number] Common 12:12:16 Janet [id number] [facility] 2021-11-20 Outpatient Joqauin, [facility] [id number] Common 12:11:47 Janet [id number] [facility] 2021-11-20 Outpatient Joaquin, [facility] [id number] Common 12:09:18 Janet [id number] [facility] 2021-11-20 Outpatient Joaquin, [facility] [id number] Common 12:07:34 Janet [id number] [facility] 2021-11-20 Outpatient Joaquin, [facility] [id number] Common 12:06:22 Janet [id number] [facility] 2021-11-20 Outpatient Joaquin, [facility] [id number] Common 12:02:18 Janet [id number] [facility] 2021-11-20 Outpatient Joaquin, [facility] [id number] Common 12:00:36 Janet [id number] [facility] 2022-03-28 2022-03-28 ambulatory [facility] [id number] Common 00:00:00 00:00:00 [facility] 2021-11-29 2021-11-29 ambulatory [facility] [id number] Common 00:00:00 00:00:00 [facility] 2021-11-11 2021-11-11 ambulatory [facility] [id number] Common 00:00:00 00:00:00 [facility] 2021-08-15 2021-08-15 Outpatient [facility] [id number] Common 00:00:00 00:00:00 [facility] 2021-08-15 2021-08-15 Outpatient [facility] [id number] Common 00:00:00 00:00:00 [facility] 2021-07-19 2021-07-19 Outpatient [facility] [id number] Common 00:00:00 00:00:00 [facility] 2021-07-12 2021-07-12 Outpatient [facility] [id number] Common 00:00:00 00:00:00 [facility] 2021-06-18 2021-06-18 Outpatient [facility] [id number] Common 00:00:00 00:00:00 [facility] 2021-06-18 2021-06-18 Outpatient [facility] [id number] Common 00:00:00 00:00:00 [facility] 2021-06-14 2021-06-14 Outpatient [facility] [id number] Common 00:00:00 00:00:00 [facility] 2021-03-12 2021-03-12 Outpatient [facility] [id number] Common 00:00:00 00:00:00 [facility] 2021-01-17 2021-01-17 Outpatient [facility] [id number] Common 00:00:00 00:00:00 [facility] 2021-01-08 2021-01-08 Outpatient Nish CARRINGTON [facility] [id number] Univers 14:00:00 14:00:00 PRICILLA [id number] [facility] 2021-01-08 2021-01-08 Outpatient Nish CARRINGTON [facility] [id number] Univers 14:00:00 14:00:00 PRICILLA [facility] 2020-12-18 2020-12-18 Outpatient Nish CARRINGTON [facility] [id number] Univers 16:30:00 16:30:00 PRICILLA [facility] 2020-12-18 2020-12-18 Outpatient Nish CARRINGTON [facility] [id number] Univers 16:30:00 16:30:00 PRICILLA [id number] [facility] 2020-10-05 2020-10-05 Outpatient [facility] [id number] Common 00:00:00 00:00:00 [facility] 2020-09-14 2020-09-14 Outpatient [facility] [id number] Common 00:00:00 00:00:00 [facility] 2020-08-31 2020-08-31 Outpatient [facility] [id number] Common 00:00:00 00:00:00 [facility] 2020-08-28 2020-08-28 Outpatient [facility] [id number] Common 00:00:00 00:00:00 [facility] 2020-08-24 2020-08-24 Outpatient [facility] [id number] Common 00:00:00 00:00:00 [facility] Results This patient has no known results.
[2022-06-27 21:32] LABS: Urine Blood Negative (Negative); Urine Glucose Negative (Negative); Urine Protein 2+ (Negative); Urine pH 7.5 (5.0-7.0)
[2022-06-27 21:52] LABS: Urine Bacteria <20 /HPF (<20); Urine RBC <5 /HPF (None Seen)
[2022-06-27 23:47] LABS: Absolute Lymphocytes (CBC) 2.5 K/uL (0.7-4.9); Lymphocytes % 28.6 % (15.3-44.8); MCV 86.5 fL (80-100); MPV 9.3 fL (7.6-11.3); RBC Red Blood Cell Count 4.62 M/uL (4.33-5.43)
[2022-06-28] LABS: Albumin 3.5 g/dL (3.4-5.0); Bilirubin Total 0.3 mg/dL (0.2-1.0); Potassium 3.4 mmol/L (3.5-5.1); Protein, Total 7.5 g/dL (6.4-8.2)
[2022-06-28] MEDS ORDERED: MORPHINE 2 MG/ML SYR ONE ×2 (00:17→03:22)
[2022-06-28] MEDS ORDERED: CEFTRIAXONE 2000 MG/VIAL ONE (00:17)
[2022-06-28] MEDS ORDERED: ONDANSETRON 4 MG/2 ML VIAL ONE (00:17)
[2022-06-28] MEDS ORDERED: NA CHLORIDE 0.9% 100 ML ONE (00:17)
[2022-06-28] MEDS ORDERED: CIPROFLOXACIN 400mg IV 400 MG/200 ML BAG IV ONE (00:17)
[2022-06-28] MEDS ORDERED: METRONIDAZOLE 500mg IVPB 500 MG/100 ML BAG IV ONE (00:18)
[2022-06-28] MEDS ORDERED: POTASSIUM 25 MEQ EFFERV TAB ONE (01:39)
--- NOTE | 2022-06-28 04:12 | RAD REPORT ---
EXAM DESCRIPTION: CTAbdomen Pelvis W Contrast - 06/28/2022 12:36 am CLINICAL HISTORY: Abdominal pain. Abdominal pain, acute, nonlocalized COMPARISON: Abdomen Pelvis W Contrast dated 08/06/2016 TECHNIQUE: Biphasic CT imaging of the abdomen and pelvis was performed with 100 ml non-ionic IV cont rast. All CT scans are performed using dose optimization technique as appropriate and may include automated exposure control or mA/KV adjustment according to patient size. FINDINGS: The lung bases are clear.Small hiatal hernia. The liver, spleen, pancreas, adrenal glands and kidneys are within normal limits. No bowel obstruction, free air, free fluid or abscess. Sigmoid diverticulosis coli is present without diverticulitis. The appendix is normal. No evidence of significant lymphadenopathy. Small fat conta ining inguinal hernias. No suspicious bony findings. 22 mm left-sided posterolateral bladder diverticulum. IMPRESSION: No acute intra-abdominal or pelvic finding.
--- NOTE | 2022-06-28 04:32 | EDPHYS ---
Physician Documentation [facility] Name: Cristopher Black Age: 61 yrs Sex: Male : 1960 Arrival Date: 06/27/2022 Time: 20:45 Bed 12 Private MD: ISABEL Physician Wesley Gutierrez HPI: 06/27 23:18 This 61 yrs old Black Male presents to ER via Ambulatory with complaints of Abdominal blair Pain. 23:18 The patient presents with abdominal pain in the lower abdomen. Onset: The blair symptoms/episode began/occurred 2 day(s) ago. The symptoms do not radiate. Associated signs and symptoms: none. The symptoms are described as crampy. Modifying factors: The symptoms are alleviated by nothing, the symptoms are aggravated by nothing. Severity of pain: At its worst the pain was mild. The patient has not experienced similar symptoms in the past. Historical: - Allergies: 21:11 No Known Allergies; as6 - Home Meds: 21:11 Albuterol Inhl [Active]; amlodipine oral [Active]; Hydroxyzine Oral [Active]; as6 lisinopril-hydrochlorothiazide Oral 1 tab [Active]; meloxicam Oral [Active]; Omeprazole Oral [Active]; Symbicort inhalation [Active]; Trazodone Oral [Active]; - PMHx: 21:11 Asthma; Hepatitis; Hypertension; as6 - PSHx: 21:11 None; as6 - Immunization history:: Client reports receiving the 2nd dose of the Covid vaccine, pfizer. - Social history:: Smoking status: Patient denies any tobacco usage or history of. - Family history:: not pertinent. ROS: 23:18 Constitutional: Negative for fever, chills, and weight loss, Eyes: Negative for injury, blair pain, redness, and discharge, ENT: Negative for injury, pain, and discharge, Neck: Negative for injury, pain, and swelling, Cardiovascular: Negative for chest pain, palpitations, and edema, Respiratory: Negative for shortness of breath, cough, wheezing, and pleuritic chest pain, Back: Negative for injury and pain, : Negative for injury, bleeding, discharge, and swelling, MS/Extremity: Negative for injury and deformity, Skin: Negative for injury, rash, and discoloration, Neuro: Negative for headache, weakness, numbness, tingling, and seizure, Psych: Negative for depression, anxiety, suicide ideation, homicidal ideation, and hallucinations, Allergy/Immunology: Negative for hives, rash, and allergies, Endocrine: Negative for neck swelling, polydipsia, polyuria, polyphagia, and marked weight changes, Hematologic/Lymphatic: Negative for swollen nodes, abnormal bleeding, and unusual bruising. 23:18 Abdomen/GI: Positive for abdominal pain, of the right lower quadrant and left lower quadrant. Exam: 23:18 Constitutional: This is a well developed, well nourished patient who is awake, alert, blair and in no acute distress. Head/Face: Normocephalic, atraumatic. Eyes: Pupils equal round and reactive to light, extra-ocular motions intact. Lids and lashes normal. Conjunctiva and sclera are non-icteric and not injected. Cornea within normal limits. Periorbital areas with no swelling, redness, or edema. ENT: Nares patent. No nasal discharge, no septal abnormalities noted. Tympanic membranes are normal and external auditory canals are clear. Oropharynx with no redness, swelling, or masses, exudates, or evidence of obstruction, uvula midline. Mucous membranes moist. Neck: Trachea midline, no thyromegaly or masses palpated, and no cervical lymphadenopathy. Supple, full range of motion without nuchal rigidity, or vertebral point tenderness. No Meningismus. Chest/axilla: Normal chest wall appearance and motion. Nontender with no deformity. No lesions are appreciated. Cardiovascular: Regular rate and rhythm with a normal S1 and S2. No gallops, murmurs, or rubs. Normal PMI, no JVD. No pulse deficits. Respiratory: Lungs have equal breath sounds bilaterally, clear to auscultation and percussion. No rales, rhonchi or wheezes noted. No increased work of breathing, no retractions or nasal flaring. Back: No spinal tenderness. No costovertebral tenderness. Full range of motion. Male : Normal genitalia with no discharge or lesions. Skin: Warm, dry with normal turgor. Normal color with no rashes, no lesions, and no evidence of cellulitis. MS/ Extremity: Pulses equal, no cyanosis. Neurovascular intact. Full, normal range of motion. Neuro: Awake and alert, GCS 15, oriented to person, place, time, and situation. Cranial nerves II-XII grossly intact. Motor strength 5/5 in all extremities. Sensory grossly intact. Cerebellar exam normal. Normal gait. Psych: Awake, alert, with orientation to person, place and time. Behavior, mood, and affect are within normal limits. 23:18 Abdomen/GI: Inspection: distension, that is mild, Bowel sounds: active, all quadrants, Palpation: mild abdominal tenderness, in the right lower quadrant and left lower quadrant, Liver: no appreciated palpable abnormalities, Hernia: not appreciated. Vital Signs: 21:07 BP 153 / 83; Pulse 59; Resp 18 S; Temp 98.4(O); Pulse Ox 95% on R/A; Weight 104.78 kg as6 (R); Height 5 ft. 7 in. (170.18 cm) (R); Pain 8/10; 22:53 BP 164 / 95; Pulse 57; Resp 18; Pulse Ox 100% on R/A; Pain 6/10; tw5 06/28 01:35 Pain 4/10; tw5 03:24 BP 128 / 70; Pulse 52; Resp 18; Pulse Ox 100% on R/A; tw5 04:51 BP 126 / 72; Pulse 54; Resp 18; Pulse Ox 100% on R/A; Pain 8/10; tw5 06/27 21:07 Body Mass Index 36.18 (104.78 kg, 170.18 cm) as6 MDM: 06/27 22:50 Patient medically screened. blair 23:20 Differential diagnosis: bowel obstruction, cholecystitis, Cholelithiasis, blair diverticulitis, Irritable bowel syndrome, Mesenteric ischemia or infarction, non-specific abd pain, pancreatitis, Peptic Ulcer Disease, Prostatitis, Pyelonephritis, Ureterolithiasis, urinary tract infection. Data reviewed: vital signs, nurses notes, lab test result(s), EKG, radiologic studies, CT scan, plain films. Data interpreted: monitoring and evaluation advisor: rate is 57 beats/min, rhythm is regular, Pulse oximetry: on room air is 100 %. Test interpretation: by ED physician or midlevel provider:. Counseling: I had a detailed discussion with the patient and/or guardian regarding: the historical points, exam findings, and any diagnostic results supporting the discharge/admit diagnosis, lab results, radiology results, the need for outpatient follow up, for definitive care, 06/27 21:13 Order name: Urine Microscopic Only; Complete Time: 23:15 as6 06/27 21:33 Order name: Urine Dipstick-Ancillary; Complete Time: 23:15 EDMS 06/27 23:16 Order name: CBC with Diff; Complete Time: 00:32 blair 06/27 23:16 Order name: CMP; Complete Time: 00:32 blair 06/27 23:16 Order name: Lipase; Complete Time: 00:32 blair 06/27 23:16 Order name: CT Abd/Pelvis - IV Contrast Only; Complete Time: 04:30 [facility] 06/27 21:13 Order name: Urine Dipstick-Ancillary (obtain specimen); Complete Time: 22:47 as6 06/27 23:16 Order name: IV Saline Lock; Complete Time: 23:51 [facility] 06/27 23:16 Order name: Labs collected and sent; Complete Time: 23:51 [facility] Administered Medications: 06/28 00:15 Drug: morphine 2 mg Route: IVP; Infused Over: 4 mins; Site: right antecubital; tw5 01:35 Follow up: Pain 4/10 Adult; Response: No adverse reaction; Pain is decreased; RASS: tw5 Alert and Calm (0) 00:54 Drug: Cipro (ciprofloxacin) 400 mg Volume: 200 ml; Route: IVPB; Infused Over: 60 mins; tw5 Site: right antecubital; 03:23 Follow up: Response: No adverse reaction; IV Status: Completed infusion; IV Intake: tw5 200ml 00:54 Drug: morphine 2 mg Route: IVP; Infused Over: 4 mins; Site: right antecubital; tw5 01:35 Follow up: Response: No adverse reaction; Pain is decreased; RASS: Alert and Calm (0) tw5 00:55 Drug: Flagyl (metroNIDAZOLE) 500 mg Volume: 100 ml; Route: IVPB; Rate: 200 ml/hr; tw5 Infused Over: 30 mins; Site: right antecubital; 01:35 Follow up: Response: No adverse reaction; IV Status: Completed infusion tw5 00:55 Drug: Rocephin (cefTRIAXone) 2 grams Route: IV; Rate: per protocol; Site: right tw5 antecubital; 01:35 Follow up: Response: No adverse reaction; IV Status: Completed infusion; IV Intake: tw5 100ml 01:35 Drug: Potassium Effervescent Tablet 25 mEq Route: PO; 03:23 Follow up: Response: No adverse reaction 01:36 Drug: Zofran (Ondansetron) 4 mg Route: IVP; Site: right antecubital; tw 01:36 Follow up: Response: No adverse reaction 03:23 Drug: morphine 2 mg Route: IVP; Infused Over: 4 mins; Site: right antecubital; tw5 04:50 Follow up: Response: No adverse reaction; Pain is decreased; RASS: Alert and Calm (0) 04:50 Drug: [place] (HYDROcodone-acetaminophen) 10 mg-325 mg 1 tabs Route: PO; 04:51 Follow up: Response: No adverse reaction; Medication administered at discharge.; RASS: tw5 Alert and Calm (0) Disposition Summary: 06/28/22 04:31 Discharge Ordered Location: Home blair Problem: new blair Symptoms: have improved blair Condition: Stable blair Diagnosis - Abdominal tenderness blair - Diverticulitis of large intestine without perforation or abscess without bleeding blair - Diverticulosis of large intestine without perforation or abscess without bleeding blair - Diverticulum of bladder blair Followup: blair - With: Private Physician - When: 2 - 3 days - Reason: Recheck today's complaints, Continuance of care, Re-evaluation by your physician Followup: blair - With: - When: 2 - 3 days - Reason: Recheck today's complaints, Re-evaluation by your physician Discharge Instructions: - Discharge Summary Sheet blair - Abdominal Pain, Adult blair - Diverticulitis blair - Diverticulitis, [id number] blair - Abdominal Pain, Adult, [id number] [facility] Forms: - Medication Reconciliation Form [facility] - Thank You Letter [facility] - Antibiotic Education [facility] - Prescription Opioid Use [facility] Prescriptions: - Cipro 500 mg Oral Tablet - take 1 tablet by ORAL route every 12 hours for 10 days; 20 tablet; Refills: 0, [facility] Product Selection Permitted - Flagyl 500 mg Oral Tablet - take 1 tablet by ORAL route every 6 hours for 10 days; 40 tablet; Refills: 0, [facility] Product Selection Permitted - Zofran 4 mg Oral Tablet - take 1 tablet by ORAL route every 12 hours As needed; 20 tablet; Refills: 0, [facility] Product Selection Permitted - dicyclomine 20 mg Oral Tablet - take 1 tablet by ORAL route 4 times per day; 28 tablet; Refills: 0, Product blair Selection Permitted - Tylenol-Codeine #3 300 mg-30 mg Oral - take 2 tablet by ORAL route every 6 hours; 15 tablet; Refills: 0, Product blair Selection Permitted Signatures: Dispatcher [employer] Wesley Escudero MD MD cha Wood, Tiffany tw5 Garo Clinton, RN RN as6
--- NOTE | 2022-06-28 04:32 | ER ---
Nurse's Notes [facility] Name: Cristopher Larson Age: 61 yrs Sex: Male : 1960 Arrival Date: 06/27/2022 Time: 20:45 Bed 12 Private MD: Diagnosis: Abdominal tenderness;Diverticulitis of large intestine without perforation or abscess without bleeding;Diverticulosis of large intestine without perforation or abscess without bleeding;Diverticulum of bladder Presentation: 06/27 21:07 Chief complaint: Patient states: "I've been hurting in my lower abdominal area, and as6 I've been peeing a lot". Coronavirus screen: At this time, the client does not indicate any symptoms associated with coronavirus-19. Ebola Screen: No symptoms or risks identified at this time. Initial Sepsis Screen: Does the patient meet any 2 criteria? No. Patient's initial sepsis screen is negative. Does the patient have a suspected source of infection? No. Patient's initial sepsis screen is negative. Risk Assessment: Do you want to hurt yourself or someone else? Patient reports no desire to harm self or others. Onset of symptoms was June 26, 2022. 21:07 Method Of Arrival: Ambulatory as6 21:07 Acuity: MARTY 3 as6 Triage Assessment: 21:12 General: Appears uncomfortable, Behavior is calm, cooperative. Pain: Complains of pain as6 in abdomen. GI: Reports lower abdominal pain. : Reports urinary frequency. Historical: - Allergies: 21:11 No Known Allergies; as6 - Home Meds: 21:11 Albuterol Inhl [Active]; amlodipine oral [Active]; Hydroxyzine Oral [Active]; as6 lisinopril-hydrochlorothiazide Oral 1 tab [Active]; meloxicam Oral [Active]; Omeprazole Oral [Active]; Symbicort inhalation [Active]; Trazodone Oral [Active]; - PMHx: 21:11 Asthma; Hepatitis; Hypertension; as6 - PSHx: 21:11 None; as6 - Immunization history:: Client reports receiving the 2nd dose of the Covid vaccine, pfizer. - Social history:: Smoking status: Patient denies any tobacco usage or history of. - Family history:: not pertinent. Screenin:53 Abuse screen: Denies threats or abuse. Denies injuries from another. Nutritional tw5 screening: No deficits noted. Tuberculosis screening: No symptoms or risk factors identified. Fall Risk None identified. Assessment: 22:53 General: Reports "yesterday my abdomen started to hurt, but then today it started to tw5 get worse. If I walk it gets worse, if I lift my leg the pain is worse.". Pain: Pain currently is 6 out of 10 on a pain scale. at worst was 10 out of 10 on a pain scale. Aggravated by increased activity. Cardiovascular: No deficits noted. GI: Bowel sounds present X 4 quads. Abdomen is tender to palpation in suprapubic area, right lower quadrant and left lower quadrant Reports. 06/28 03:24 Pain: Complains of pain in suprapubic area, right lower quadrant and left lower tw5 quadrant Pain currently is 8 out of 10 on a pain scale. Vital Signs: 06/27 21:07 BP 153 / 83; Pulse 59; Resp 18 S; Temp 98.4(O); Pulse Ox 95% on R/A; Weight 104.78 kg as6 (R); Height 5 ft. 7 in. (170.18 cm) (R); Pain 8/10; 22:53 BP 164 / 95; Pulse 57; Resp 18; Pulse Ox 100% on R/A; Pain 6/10; tw5 06/28 01:35 Pain 4/10; tw5 03:24 BP 128 / 70; Pulse 52; Resp 18; Pulse Ox 100% on R/A; tw5 04:51 BP 126 / 72; Pulse 54; Resp 18; Pulse Ox 100% on R/A; Pain 8/10; tw5 06/27 21:07 Body Mass Index 36.18 (104.78 kg, 170.18 cm) as6 ED Course: 06/27 20:45 Patient arrived in ED. bp1 21:11 Triage completed. as6 21:12 Arm band placed on. as6 22:46 Teagan Gonzalez is Primary Nurse. tw5 22:50 Wesley Gutierrez MD is Attending Physician. [facility] 22:53 Patient has correct armband on for positive identification. Bed in low position. Call tw5 light in reach. Side rails up X 1. Adult w/ patient. Pulse ox on. NIBP on. Door closed. Lights dimmed. Warm blanket given. Verbal reassurance given. 23:40 Inserted saline lock: 20 gauge in right antecubital area, using aseptic technique. ds4 Blood collected. 06/28 00:38 CT Abd/Pelvis - IV Contrast Only In Process Unspecified. EDMS 03:24 No provider procedures requiring assistance completed. tw5 04:30 Giovanny Kohli MD is Referral Physician. blair 04:51 IV discontinued, intact, bleeding controlled, No redness/swelling at site. Pressure tw5 dressing applied. Administered Medications: 00:15 Drug: morphine 2 mg Route: IVP; Infused Over: 4 mins; Site: right antecubital; tw5 01:35 Follow up: Pain 4/10 Adult; Response: No adverse reaction; Pain is decreased; RASS: tw5 Alert and Calm (0) 00:54 Drug: Cipro (ciprofloxacin) 400 mg Volume: 200 ml; Route: IVPB; Infused Over: 60 mins; tw5 Site: right antecubital; 03:23 Follow up: Response: No adverse reaction; IV Status: Completed infusion; IV Intake: tw5 200ml 00:54 Drug: morphine 2 mg Route: IVP; Infused Over: 4 mins; Site: right antecubital; tw5 01:35 Follow up: Response: No adverse reaction; Pain is decreased; RASS: Alert and Calm (0) tw5 00:55 Drug: Flagyl (metroNIDAZOLE) 500 mg Volume: 100 ml; Route: IVPB; Rate: 200 ml/hr; tw5 Infused Over: 30 mins; Site: right antecubital; 01:35 Follow up: Response: No adverse reaction; IV Status: Completed infusion tw5 00:55 Drug: Rocephin (cefTRIAXone) 2 grams Route: IV; Rate: per protocol; Site: right tw5 antecubital; 01:35 Follow up: Response: No adverse reaction; IV Status: Completed infusion; IV Intake: tw5 100ml 01:35 Drug: Potassium Effervescent Tablet 25 mEq Route: PO; tw5 03:23 Follow up: Response: No adverse reaction tw5 01:36 Drug: Zofran (Ondansetron) 4 mg Route: IVP; Site: right antecubital; tw5 01:36 Follow up: Response: No adverse reaction tw5 03:23 Drug: morphine 2 mg Route: IVP; Infused Over: 4 mins; Site: right antecubital; tw5 04:50 Follow up: Response: No adverse reaction; Pain is decreased; RASS: Alert and Calm (0) tw 04:50 Drug: [place] (HYDROcodone-acetaminophen) 10 mg-325 mg 1 tabs Route: PO; 04:51 Follow up: Response: No adverse reaction; Medication administered at discharge.; RASS: tw5 Alert and Calm (0) Medication: 04:51 VIS not applicable for this client. Intake: 01:35 IV: 100ml; Total: 100ml. tw 03:23 IV: 200ml; Total: 300ml. tw Outcome: 04:31 Discharge ordered by MD. pinto 04:51 Discharged to home ambulatory, with family. 04:51 Condition: improved 04:51 Discharge instructions given to patient, Instructed on discharge instructions, follow up and referral plans. Demonstrated understanding of instructions, follow-up care, medications, Prescriptions given X 4. 04:52 Patient left the ED. Signatures: Dispatcher [employer] EDMS Wesley Gutierrez MD MD cha Swanson, Donovan ds4 Renea Morocho Tiffany tw5 Garo Clinton, RN RN as6
[2022-06-28] MEDS ORDERED: HYDROCODONE/APAP 10/325 TAB ONE (04:53)
[2022-06-28 05:42] VITALS: TEMP 98.4
[2022-06-28 05:51] VITALS: O2SAT 100
[2022-06-28 06:12] VITALS: BP 126/72
== END 2022-06-28 04:52 | disposition home or self-care (01) ==
LOC: ER 20:41
DX: K57.32 Diverticulitis of large intestine without perforation or abscess without bleeding (principal); K57.30 Diverticulosis of large intestine without perforation or abscess without bleeding; N32.3 Diverticulum of bladder; I10 Essential (primary) hypertension; J45.909 Unspecified asthma, uncomplicated
CPT/HCPCS: 96365; 96367; 85025; 36415; 83690; 80053; 74177; 96375; 99284; Q9967; J2270 ×2; J2405; J0696; J0744; 81003; 81015

== ENCOUNTER 2022-07-25 20:13 | Inpatient (IN) | payer BC ==
--- OUTSIDE RECORDS SUMMARY | 2022-07-25 20:16 | XMS REPORT | Continuity of Care Document ---
:1960 Author Organization [facility] t Address [address] [place] [address] Care Team Providers Name Role Phone Naresh Rhoades Attending Clinician Unavailable Janet Nuñez Attending Clinician Unavailable PRICILLA CARRINGTON Attending Clinician Unavailable Payers Payer Name Policy Type Policy Number Effective Date Expiration Date S [facility] [id number] 2014 00:00:00 Problems This patient has no known problems. Allergies, Adverse Reactions, Alerts Allergy Allergy Status Severity Reaction(s) Onset Inactive Treating Comm ents Source Name Type Date Date Clinician NO KNOWN Drug Active [facility] Medications This patient has no known medications. Procedures This patient has no known procedures. Encounters Start End Encounter Admission Attending Care Care Encounter Source Date/Time Date/Time Type Type Clinicians Facility Department ID 2021-11-20 Outpatient Rhoades, [facility] [id number] Common 14:04:32 Naresh [id number] [facility] 2021-11-20 Outpatient [facility], [facility] [id number] Common 13:50:27 Naresh [id number] [facility] 2021-11-20 Outpatient [facility] [id number] Common 13:41:58 Naresh [id number] [facility] 2021-11-20 Outpatient Rhoades, [facility] [id number] Common 13:09:12 Naresh 15327 [facility] 2021-11-20 Outpatient Rhoades, [facility] [id number] Common 13:07:29 Naresh [id number] [facility] 2021-11-20 Outpatient Rhoades, [facility] [id number] Common 13:05:13 Naresh 71815 [facility] 2021-11-20 Outpatient Rhoades, [facility] [id number] Common 13:04:48 [facility] [id number] [facility] 2021-11-20 Outpatient [facility] [id number] Common 12:44:19 15457 [facility] 2021-11-20 Outpatient Joaquin, [facility] [id number] Common 12:12:37 Janet [id number] [facility] 2021-11-20 Outpatient Joaquin, [facility] [id number] Common 12:12:16 Janet 15251 [facility] 2021-11-20 Outpatient Joaquin, [facility] [id number] Common 12:11:47 Janet 16044 [facility] 2021-11-20 Outpatient Joaquin, [facility] [id number] Common 12:09:18 Janet [id number] [facility] 2021-11-20 Outpatient Joaquin, [facility] [id number] Common 12:07:34 Ajnet 71057 [facility] 2021-11-20 Outpatient Joaquin, [facility] [id number] Common 12:06:22 Janet [id number] [facility] 2021-11-20 Outpatient Joaquin, [facility] [id number] Common 12:02:18 Janet 25582 [facility] 2021-11-20 Outpatient Joaquin, [facility] [id number] Common 12:00:36 Janet [id number] [facility] 2022-06-27 2022-06-27 ambulatory [facility] [id number] Common 00:00:00 00:00:00 [facility] 2022-03-28 2022-03-28 ambulatory [facility] [id number] Common 00:00:00 00:00:00 [facility] 2021-11-29 2021-11-29 ambulatory [facility] [id number] Common 00:00:00 00:00:00 [facility] 2021-11-11 2021-11-11 ambulatory [facility] [id number] Common 00:00:00 00:00:00 [facility] 2021-08-15 2021-08-15 Outpatient [facility] [id number] Common 00:00:00 00:00:00 [facility] 2021-08-15 2021-08-15 Outpatient [facility] [id number] Common 00:00:00 00:00:00 [facility] 2021-07-19 2021-07-19 Outpatient [facility] [id number] Common 00:00:00 00:00:00 [facility] 2021-07-12 2021-07-12 Outpatient [facility] [id number] Common 00:00:00 00:00:00 [facility] 2021-06-18 2021-06-18 Outpatient [facility] [id number] Common 00:00:00 00:00:00 [facility] 2021-06-18 2021-06-18 Outpatient [facility] [id number] Common 00:00:00 00:00:00 [facility] 2021-06-14 2021-06-14 Outpatient [facility] [id number] Common 00:00:00 00:00:00 [facility] 2021-03-12 2021-03-12 Outpatient [facility] [id number] Common 00:00:00 00:00:00 [facility] 2021-01-17 2021-01-17 Outpatient [facility] [id number] Common 00:00:00 00:00:00 [facility] 2021-01-08 2021-01-08 Outpatient Nish CARRINGTON [facility] [id number] Univers 14:00:00 14:00:00 PRICILLA [id number] [facility] 2021-01-08 2021-01-08 Outpatient Nish CARRINGTON [facility] [id number] Univers 14:00:00 14:00:00 PRICILLA [facility] 2020-12-18 2020-12-18 Outpatient Nish CARRINGTON [facility] [id number] Univers 16:30:00 16:30:00 PRICILLA [facility] 2020-12-18 2020-12-18 Outpatient Nish CARRINGTON [facility] [id number] Univers 16:30:00 16:30:00 PRICILLA [id number] [facility] 2020-10-05 2020-10-05 Outpatient [facility] [id number] Common 00:00:00 00:00:00 [facility] 2020-09-14 2020-09-14 Outpatient [facility] [id number] Common 00:00:00 00:00:00 [facility] 2020-08-31 2020-08-31 Outpatient [facility] [id number] Common 00:00:00 00:00:00 [facility] 2020-08-28 2020-08-28 Outpatient [facility] [id number] Common 00:00:00 00:00:00 [facility] 2020-08-24 2020-08-24 Outpatient [facility] [id number] Common 00:00:00 00:00:00 [facility] Results This patient has no known results.
[2022-07-25] MEDS ORDERED: ONDANSETRON 4 MG/2 ML VIAL ONE (21:23)
[2022-07-25] MEDS ORDERED: MORPHINE 4 MG/ML SYR ONE ×2 (21:23→23:17)
[2022-07-25] MEDS ORDERED: NA CHLORIDE 0.9% 1,000 ML ONE (21:23)
[2022-07-25 21:41] LABS: Absolute Lymphocytes (CBC) 2.1 K/uL (0.7-4.9); Hematocrit 39.4 % (39.6-49.0); Lymphocytes % 25.7 % (15.3-44.8); MPV 9.6 fL (7.6-11.3); RBC Red Blood Cell Count 4.47 M/uL (4.33-5.43)
[2022-07-25 21:44] LABS: Albumin 3.5 g/dL (3.4-5.0); Bilirubin Total 0.2 mg/dL (0.2-1.0); Potassium 3.7 mmol/L (3.5-5.1); Protein, Total 7.5 g/dL (6.4-8.2)
--- NOTE | 2022-07-25 22:42 | RAD REPORT ---
EXAM DESCRIPTION: CTAbdomen Pelvis W Contrast - 07/25/2022 10:27 pm CLINICAL HISTORY: abd pain COMPARISON: Abdomen Pelvis W Contrast dated 06/28/2022; Abdomen Pelvis W Contrast dated 08/06/2016 TECHNIQUE: CT of the abdomen and pelvis was performed. All CT scans are performed using dose optimization technique as appropriate and may include automated exposure control or mA/KV adjustment according to patient size. FINDINGS: Lower chest: No acute abnormality. Liver: No acute abnormality or suspicious lesions. Biliary: No biliary ductal dilatation. Stomach: No significant focal abnormality. Duodenum: No significant focal abnormality. Pancreas: No significant abnormality. Spleen: No significant abnormality. Adrenal: No suspicious lesions. Kidney/ureter: No hydronephrosis. No renal calculi. Too small to characterize and/or benign appearing renal lesions are noted. Retroperitoneum: No retroperitoneal adenopathy. Vascular: No aneurysm. Bowel: Diverticulosis. No evidence acute diverticulitis.. Borderline dilated small bowel within the l eft hemiabdomen. Small air-fluid levels are noted. Normal appendix. Peritoneum: No ascites or free air. Small fat containing inguinal hernias. Bladder: Small bladder diverticulum along the left aspect of the bladder. Reproductive: No adnexal masses. Bones: No acute fracture. Multilevel degenerative changes are present in the spine. Other: n/a IMPRESSION: Borderline dilated small bowel in the left hemiabdomen could represent an ileus. No disc rete transition point at this time to suggest the presence of a bowel obstruction. Normal appendix.
--- NOTE | 2022-07-25 23:23 | EDPHYS ---
Physician Documentation [facility] Name: Cristopher Black Age: 61 yrs Sex: Male : 1960 Arrival Date: 07/25/2022 Time: 20:41 Bed 13 Private MD: ISABEL Physician Wesley Gutierrez HPI: 07/25 21:56 This 61 yrs old Black Male presents to ER via Wheelchair with complaints of Abdominal kb Pain, Leg Pain. 21:56 The patient presents with abdominal pain in the lower abdomen. Onset: The kb symptoms/episode began/occurred today. The symptoms do not radiate. Associated signs and symptoms: none. The symptoms are described as constant. Modifying factors: The symptoms are alleviated by nothing, the symptoms are aggravated by nothing. Severity of pain: At its worst the pain was moderate in the emergency department the pain is unchanged. The patient has experienced similar episodes in the past, a few times, and the symptoms today are exactly the same, to previous diverticulitis. The patient has not recently seen a physician. Historical: - Allergies: 20:52 No Known Allergies; kb3 - Home Meds: 20:52 Albuterol Inhl [Active]; amlodipine oral [Active]; Hydroxyzine Oral [Active]; kb3 lisinopril-hydrochlorothiazide Oral 1 tab [Active]; meloxicam Oral [Active]; Omeprazole Oral [Active]; Symbicort inhalation [Active]; Trazodone Oral [Active]; - PMHx: 20:52 Asthma; Hepatitis; Hypertension; Osteoarthritis; kb3 - PSHx: 20:52 None; kb3 - Immunization history:: Adult Immunizations up to date, Client reports receiving the 2nd dose of the Covid vaccine, Last tetanus immunization: up to date. - Social history:: Smoking status: Patient denies any tobacco usage or history of. ROS: 21:55 Constitutional: Negative for fever, chills, and weight loss. kb 21:55 Abdomen/GI: Positive for abdominal pain, Negative for nausea, vomiting, and diarrhea. 21:55 All other systems are negative. Exam: 21:55 Constitutional: This is a well developed, well nourished patient who is awake, alert, kb and in no acute distress. Head/Face: Normocephalic, atraumatic. ENT: Moist Mucous membranes Cardiovascular: Regular rate and rhythm with a normal S1 and S2. No gallops, murmurs, or rubs. No pulse deficits. Respiratory: Respirations even and unlabored. No increased work of breathing. Talking in full sentences Skin: Warm, dry with normal turgor. Normal color. MS/ Extremity: Pulses equal, no cyanosis. Neurovascular intact. Full, normal range of motion. Neuro: Awake and alert, GCS 15, oriented to person, place, time, and situation. Moves all extremities. Normal gait. Psych: Awake, alert, with orientation to person, place and time. Behavior, mood, and affect are within normal limits. 21:55 Abdomen/GI: Inspection: abdomen appears normal, Bowel sounds: normal, in all quadrants, Palpation: soft, in all quadrants, moderate abdominal tenderness, in the right lower quadrant and left lower quadrant. Vital Signs: 20:51 BP 145 / 91; Pulse 66; Resp 18; Temp 98.3; Pulse Ox 97% ; Weight 104.33 kg; Height 5 kb3 ft. 7 in. (170.18 cm); Pain 10/10; 21:46 Pain 7/10; ke1 23:02 BP 126 / 65; Pulse 58; Resp 17; Pulse Ox 97% on R/A; ke1 23:40 Pain 6/10; ke1 20:51 Body Mass Index 36.02 (104.33 kg, 170.18 cm) kb3 MDM: 20:56 Patient medically screened. kb 21:54 Data reviewed: vital signs, nurses notes. Data interpreted: Pulse oximetry: on room air kb is 97 %. Interpretation: normal. 23:18 Counseling: I had a detailed discussion with the patient and/or guardian regarding: the kb historical points, exam findings, and any diagnostic results supporting the discharge/admit diagnosis, lab results, radiology results, the need for further work-up and treatment in the hospital. 23:22 Physician consultation: Bay ESTRELLA was contacted at 23:22, regarding admission, kb to the medical/surgical unit. patient's condition, and will see patient in ED, shortly. 07/25 21:02 Order name: CBC with Diff kb 07/25 21:02 Order name: CMP kb 07/25 21:02 Order name: Lipase kb 07/25 21:44 Order name: CBC with Automated Diff; Complete Time: 21:50 EDMS 07/25 21:44 Order name: Comprehensive Metabolic Panel; Complete Time: 21:50 EDMS 07/25 21:44 Order name: Lipase; Complete Time: 21:50 EDMS 07/25 21:02 Order name: CT Abd/Pelvis - IV Contrast Only kb 07/25 22:43 Order name: CT; Complete Time: 22:46 EDMS 07/25 23:31 Order name: SARS-COV-2 Antigen Rapid ke1 07/25 23:53 Order name: SARS-COV-2 Antigen Rapid; Complete Time: 23:56 EDMS 07/25 21:02 Order name: IV Saline Lock; Complete Time: 21:16 kb 07/25 21:02 Order name: Labs collected and sent; Complete Time: 21:21 kb Administered Medications: 21:29 Drug: Zofran (Ondansetron) 4 mg Route: IVP; Site: left antecubital; ke1 21:46 Follow up: Response: Nausea is decreased ke1 21:30 Drug: NS 0.9% 1000 ml Route: IV; Rate: 1 bolus; Site: left antecubital; ke1 21:30 Drug: morphine 4 mg Route: IVP; Infused Over: 4 mins; Site: left antecubital; ke1 21:46 Follow up: Pain 7/10 Adult; Response: Pain is decreased ke1 23:21 Drug: morphine 4 mg Route: IVP; Infused Over: 4 mins; Site: left antecubital; ke1 23:40 Follow up: Pain 6/10 Adult; Response: Pain is decreased ke1 07/26 01:09 Drug: Ketorolac 15 mg Route: IVP; Site: left antecubital; ke1 01:10 Follow up: Response: Medication administered at discharge.; Medication administered at 1 admission to med surg 01:09 Drug: ProTONIX (pantoprazole) 40 mg Route: IVP; Site: left antecubital; ke1 01:09 Follow up: Response: Medication administered at discharge.; Medication administered at 1 admission to med surg Disposition Summary: 07/25/22 23:23 Hospitalization Ordered Hospitalization Status: Observation kb Provider: Cb Jackson Location: Telemetry/MedSurg (observation) kb Condition: Stable kb Problem: new kb Symptoms: are unchanged kb Bed/Room Type: Standard Room Assignment: 404(07/26/22 00:13) cg Diagnosis - Ileus kb Forms: - Medication Reconciliation Form kb - SBAR form kb Signatures: Dispatcher [employer] Hilda Jordan FNP-C YARA-Jairob Bay Parekh FNP-C FNP-Gabriella Schuster RN RN cg Ebrottie, Kouassi, RN RN ke1 Marilee Smart RN RN kb3 Corrections: (The following items were deleted from the chart) 00:13 07/25 23:23 kb [email or web address]
--- NOTE | 2022-07-25 23:23 | ER ---
Nurse's Notes [facility] Name: Cristopher Larson Age: 61 yrs Sex: Male : 1960 Arrival Date: 07/25/2022 Time: 20:41 Bed 13 Private MD: Diagnosis: Ileus Presentation: 07/25 20:51 Chief complaint: Patient states: Pt reports lower abdominal pain since noon. States the kb3 pain feels like a previous episode of diverticulitis. Denies N/V/fever. Coronavirus screen: Vaccine status: Patient reports receiving the 2nd dose of the covid vaccine. Client denies travel out of the [place] in the last 14 days. Ebola Screen: Patient negative for fever greater than or equal to 101.5 degrees Fahrenheit, and additional compatible Ebola Virus Disease symptoms Patient denies exposure to infectious person. Patient denies travel to an Ebola-affected area in the 21 days before illness onset. No symptoms or risks identified at this time. Initial Sepsis Screen: Does the patient meet any 2 criteria? No. Patient's initial sepsis screen is negative. Does the patient have a suspected source of infection? No. Patient's initial sepsis screen is negative. Risk Assessment: Do you want to hurt yourself or someone else? Patient reports no desire to harm self or others. Onset of symptoms was July 25, 2022 at 12:00. 20:51 Method Of Arrival: Wheelchair kb3 20:51 Acuity: MARTY 3 kb3 Triage Assessment: 20:52 General: Appears in no apparent distress. uncomfortable, Behavior is calm, cooperative. kb3 Pain: Complains of pain in right lower quadrant and left lower quadrant Pain does not radiate. Pain currently is 10 out of 10 on a pain scale. Quality of pain is described as sharp, Pain began 1 day ago. GI: Reports lower abdominal pain. Historical: - Allergies: 20:52 No Known Allergies; kb3 - Home Meds: 20:52 Albuterol Inhl [Active]; amlodipine oral [Active]; Hydroxyzine Oral [Active]; kb3 lisinopril-hydrochlorothiazide Oral 1 tab [Active]; meloxicam Oral [Active]; Omeprazole Oral [Active]; Symbicort inhalation [Active]; Trazodone Oral [Active]; - PMHx: 20:52 Asthma; Hepatitis; Hypertension; Osteoarthritis; kb3 - PSHx: 20:52 None; kb3 - Immunization history:: Adult Immunizations up to date, Client reports receiving the 2nd dose of the Covid vaccine, Last tetanus immunization: up to date. - Social history:: Smoking status: Patient denies any tobacco usage or history of. Screenin:19 Abuse screen: Denies threats or abuse. Nutritional screening: No deficits noted. ke1 Tuberculosis screening: No symptoms or risk factors identified. Fall Risk None identified. Assessment: 21:20 GI: Bowel sounds present X 4 quads. ke1 21:20 GI: Abdomen is tender to palpation in suprapubic area, right lower quadrant and left ke1 lower quadrant. 23:20 Pain: Complains of pain in abdomen and left lower quadrant and right lower quadrant ke1 Pain currently is 8 out of 10 on a pain scale. 07/26 00:30 Pain: Complains of pain in left lower quadrant and right lower quadrant Pain currently ke1 is 10 out of 10 on a pain scale. Vital Signs: 07/25 20:51 BP 145 / 91; Pulse 66; Resp 18; Temp 98.3; Pulse Ox 97% ; Weight 104.33 kg; Height 5 kb3 ft. 7 in. (170.18 cm); Pain 10/10; 21:46 Pain 7/10; ke1 23:02 BP 126 / 65; Pulse 58; Resp 17; Pulse Ox 97% on R/A; ke1 23:40 Pain 6/10; ke1 20:51 Body Mass Index 36.02 (104.33 kg, 170.18 cm) kb3 ED Course: 20:41 Patient arrived in ED. bp1 20:52 Triage completed. kb3 20:52 Arm band placed on right wrist. kb3 20:56 Hilda Mendoza FNP-C is [facility] kb 20:56 Wesley Gutierrez MD is Attending Physician. kb 20:58 Ervin Richardson RN is Primary Nurse. ke1 21:16 Inserted saline lock: 20 gauge in left antecubital area, using aseptic technique. ke1 21:20 Bed in low position. Call light in reach. ke1 23:22 Cb Jackson MD is Hospitalizing Provider. kb 23:37 SARS-COV-2 Antigen Rapid Sent. ke1 Administered Medications: 21:29 Drug: Zofran (Ondansetron) 4 mg Route: IVP; Site: left antecubital; ke1 21:46 Follow up: Response: Nausea is decreased ke1 21:30 Drug: NS 0.9% 1000 ml Route: IV; Rate: 1 bolus; Site: left antecubital; ke1 21:30 Drug: morphine 4 mg Route: IVP; Infused Over: 4 mins; Site: left antecubital; ke1 21:46 Follow up: Pain 7/10 Adult; Response: Pain is decreased ke1 23:21 Drug: morphine 4 mg Route: IVP; Infused Over: 4 mins; Site: left antecubital; ke1 23:40 Follow up: Pain 6/10 Adult; Response: Pain is decreased ke1 07/26 01:09 Drug: Ketorolac 15 mg Route: IVP; Site: left antecubital; ke1 01:10 Follow up: Response: Medication administered at discharge.; Medication administered at 1 admission to med surg 01:09 Drug: ProTONIX (pantoprazole) 40 mg Route: IVP; Site: left antecubital; ke1 01:09 Follow up: Response: Medication administered at discharge.; Medication administered at 1 admission to med surg Outcome: 07/25 23:23 Decision to Hospitalize by Provider. kb 07/26 01:19 Patient left the ED. ke1 Signatures: Hilda Mendoza, TRAINING DEVELOPER-C TRAINING DEVELOPER-Ckb Renea Morocho Kouassi, RN RN ke1 Marilee Smart RN RN kb3 Corrections: (The following items were deleted from the chart) 01: 00:30 Pain: Complains of pain in left lower quadrant and right lower quadrant Pain ke1 currently is 5 out of 10 on a pain scale. ke1
[2022-07-25 23:53] LABS: SARS-CoV-2 Antigen Rapid Res Negative (Negative)
--- NOTE | 2022-07-26 00:21 | P.HP ---
Certification for Inpatient Patient admitted to: Observation With expected LOS: <2 Midnights Patient will require the following post-hospital care: None Practitioner: I am a practitioner with admitting privileges, knowledge of patient current condition, hospital course, and medical plan of care. Services: Services provided to patient in accordance with Admission requirements found in Title 42 Section 412.3 of the Code of Federal Regulations <Bay Parekh - Last Filed: 07/26/22 00:15> Patient History Date of Service: 07/26/22 Reason for admission: Ileus, abdominal tenderness History of Present Illness: 61 YOM with hx of diverticulitis, HTN, hypothyroidism presents to the ED for 1 day of abdominal pain. He reported this pain felt similar to his previously had diverticulitis, reports difficulty with vomiting last bowel movement was yesterday around noon and normal for patient. He was evaluated in the emergency room his labs were unremarkable CT scan of abdomen and pelvis revealed borderline dilated small bowel in the left hemiabdomen which could represent ileus no discrete transition point at this time to suggest the presence of a bowel obstruction. Normal appendix. Patient received pain medication emergency department still complaining of lower abdominal pain/tenderness ED read wishes to admit under observation, abdominal tenderness/ileus. 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 - Family History Family History: Reviewed- Non-Contributory - Social History Smoking Status: Never smoker Alcohol use: Yes CD- Drugs: No Caffeine use: Yes Place of Residence: Home <Bay Parekh - Last Filed: 07/26/22 00:15> Date of Service: 07/26/22 <Cb Jackson - Last Filed: 07/26/22 10:46> Allergies No Known Allergies Allergy (Verified 07/26/22 01:56) Home Medications: Albuterol Inhaler [Ventolin Inhaler] 2 puff IH Q8H PRN 07/26/22 Amlodipine [Norvasc] 10 mg PO DAILY 07/26/22 Fluticasone/Umeclidin/Vilanter [Trelegy Ellipta 200-62.5-25] 1 each IH DAILY 07/26/22 Levothyroxine [Synthroid] 50 mcg PO [id number] 07/26/22 Lisinopril/Hydrochlorothiazide [Lisinopril-Hctz 20-25 mg Tab] 1 each PO DAILY 07/26/22 Multivit,Ther Iron,Ca,FA & Min [Centrum Tablet] 1 tab PO DAILY 07/26/22 Omeprazole [Prilosec] 40 mg PO DAILY 07/26/22 Psyllium Husk (with Sugar) [Metamucil Packet] 3.4 gm PO DAILY 07/26/22 RX: Meloxicam 7.5 mg PO DAILY 07/26/22 Trazodone HCl [Desyrel] 100 mg PO BEDTIME 07/26/22 hydrOXYzine HCL [Atarax] 50 mg PO BEDTIME PRN 07/26/22 Review of Systems 10-point ROS is otherwise unremarkable Gastrointestinal: Nausea, Abdominal Pain <Bay Parekh - Last Filed: 07/26/22 00:15> Physical Examination - Physical Exam General: Alert, In no apparent distress, Oriented x3 HEENT: Atraumatic, PERRLA, Mucous membr. moist/pink, EOMI, Sclerae nonicteric Neck: Supple, 2+ carotid pulse no bruit, No LAD, Without JVD or thyroid abnormality Respiratory: Clear to auscultation bilaterally, Normal air movement Cardiovascular: Regular rate/rhythm, Normal S1 S2 Capillary refill: <2 Seconds Gastrointestinal: Normal bowel sounds, Tenderness (Mild lower abdominal tenderness) Musculoskeletal: No tenderness Integumentary: No rashes Neurological: Normal speech, Normal strength at 5/5 x4 extr, Normal tone, Normal affect - Studies Laboratory Data (last 24 hrs) 07/25/22 21:15: Sodium 140, Potassium 3.7, BUN 17, Creatinine 0.96, Glucose 100, Total Bilirubin 0.2, AST 20, ALT 34, Alkaline Phosphatase 86, Lipase 82 07/25/22 21:15: WBC 8.20, Hgb 13.0 L, Hct 39.4 L, Plt Count 187 <Bay Parekh - Last Filed: 07/26/22 00:15> - Studies Laboratory Data (last 24 hrs) 07/25/22 21:15: Sodium 140, Potassium 3.7, BUN 17, Creatinine 0.96, Glucose 100, Total Bilirubin 0.2, AST 20, ALT 34, Alkaline Phosphatase 86, Lipase 82 07/25/22 21:15: WBC 8.20, Hgb 13.0 L, Hct 39.4 L, Plt Count 187 <Cb Jackson Last Filed: 07/26/22 10:46> Assessment and Plan - Plan Assessment: Abdominal tenderness, ileus Hypertension Hypothyroidism Plan: Abdominal tenderness, ileus: N.p.o., IVF, as needed pain medications and antiemetics. Encourage ambulation. Surgical consult in place. Hypertension: hold oral home medications will provide IV medications as needed. Hypothyroidism: Continue home medications when appropriate DVT PPX:Lovenox Code status:Full Discharge Plan: Home Plan to discharge in: 24 Hours - Advance Directives Does patient have a Living Will: No Does patient have a Durable POA for Healthcare: No - Code Status/Comfort Care Code Status Assessed: Yes (Full code) Critical Care: No Time Spent Managing Pts Care (In Minutes): 55 <Bay Parekh - Last Filed: 07/26/22 00:15> Physician Review: Patient Assessed, Agree with Above Assessment and Plan <Cb Jackson Filed: 07/26/22 10:46>
[2022-07-26] MEDS ORDERED: PANTOPRAZOLE 40 MG INJ ONE (01:02)
[2022-07-26] MEDS ORDERED: KETOROLAC 30 MG/ML INJ ONE (01:02)
[2022-07-26] MEDS: Ringers Lactate 1,000 ML IV SCH ×3 (01:51→22:32)
[2022-07-26 02:47] VITALS: BMI 35.9
[2022-07-26] MEDS: MORPHINE 2 MG/ML SYR IV PRN ×4 (06:20→21:23)
[2022-07-26] MEDS: ONDANSETRON 4 MG/2 ML VIAL IV PRN (06:22)
[2022-07-26 06:51] LABS: Potassium 3.8 mmol/L (3.5-5.1)
--- NOTE | 2022-07-26 07:53 | RAD REPORT ---
EXAM DESCRIPTION: RAD - Abdomen 1 View (KUB) - 07/26/2022 7:16 am CLINICAL HISTORY: Ileus r/o SBO Abdominal pain COMPARISON: Abdomen Pelvis W Contrast dated 07/25/2022 FINDINGS: Band of stool are present filling but not distending the colon from cecum to rectum. A few prominent small bowel loops are present in the central abdomen matching the July 25 CT study. T he small bowel pattern has not progressed. No free air or pneumatosis. No suspicious calcifications. No significant bony findings IMPRESSION: Prominent but nonprogressive small bowel pattern similar to July 25 CT study.
[2022-07-26] MEDS ORDERED: KCL 20 MEQ/100 mL IVPB 20 MEQ/100 ML BAG IV ONE (08:00)
[2022-07-26] MEDS: ENOXAPARIN 40 MG/0.4 ML SQ SCH (08:33)
[2022-07-26] MEDS ORDERED: KETOROLAC 30 MG/ML INJ IV ONE ×2 (10:40→17:00)
[2022-07-26] MEDS ORDERED: SIMETHICONE 80 MG TAB PO PRN (10:45)
--- NOTE | 2022-07-26 11:46 | RAD REPORT ---
EXAM DESCRIPTION: RAD - Abdomen 1 View (KUB) - 07/26/2022 11:19 am CLINICAL HISTORY: Placement of NGT/OGT. Post Insertion. COMPARISON: Abdomen 1 View (KUB) dated 07/26/2022; Abdomen Pelvis W Contrast dated 07/25/2022 FINDINGS: NG/OG tube has been placed. Tube curled in the stomach with the tip redirected superiorly into the distal thoracic esophagus. Stomach is decompressed. Prominent small bowel pattern seen in th e mid abdomen. No significant bony findings IMPRESSION: NG/OG tube is curled in the stomach but the tip is directed superiorly back into the low er thoracic esophagus. Stomach is decompressed. Dilated small bowel loops are present in the mid abdomen similar to the Sept ember 30 CT.
[2022-07-26 11:51] VITALS: O2SAT 97
[2022-07-26] MEDS ORDERED: INFLUENZA VACCINE (for 6+ mo) 0.5 ML DOSE IMVAC ONE (12:00)
--- NOTE | 2022-07-26 14:38 | RAD REPORT ---
EXAM DESCRIPTION: RAD - Abdomen 1 View (KUB) - 07/26/2022 2:32 pm CLINICAL HISTORY: NG tube placement COMPARISON: Abdomen 1 View (KUB) dated 07/26/2022; Abdomen 1 View (KUB) dated 07/26/2022 FINDINGS: NG tube positioning has not changed. Tubing enters the decompressed stomach, curls and is directed superiorly with the tip remaining in th e distal thoracic esophagus.
[2022-07-26] MEDS ORDERED: DIAZEPAM 5 MG TABLET PO ONE (15:50)
--- NOTE | 2022-07-26 16:03 | P.CNS ---
Date of Consult: 07/26/22 PC: I was asked to see this 61-year-old male in regards to abdominal pain, and his findings on CT scan. HPC: Patient has had about a 48-hour history of abdominal pain. Describes it as being in the lower portion of his abdomen. Says it is a hard cramping discomfort. Last for a while then eases up. Says however is very severe and he can barely walk when it occurs. Has had similar episodes to this in the past, and was diagnosed with diverticulitis. PSHx: Negative PMHx: Hypertension, asthma Social Hx: No known allergies Sys R: No cough, wheeze, S of breath. No chest pain or palpitations. No urinary complaints. Patient takes Metamucil on a regular basis. O/E: Awake alert vital signs are stable HEENT: Nasogastric tube in patient's left nares, not connected to suction. Chest: Chest movement equal bilaterally Abd: Abdomen mildly distended with tympany. No guarding or rebound however no localizing tenderness Trinity: Intact Data: CT scan suggests dilation of the small bowel. No acute cutoff point is seen. Recent x-ray shows that the NG tube is of small caliber, and has curled up in the lower esophagus. Impression: Partial small bowel obstruction Plan: Once we verify the position of the nasogastric tube in the stomach, will give the patient some mineral oil. I have also ordered 5 mg of Valium p.o. He does not require surgical intervention at this time. I will follow with you.
--- NOTE | 2022-07-26 16:10 | RAD REPORT ---
EXAM DESCRIPTION: RAD - Abdomen 1 View (KUB) - 07/26/2022 4:00 pm CLINICAL HISTORY: ng tube placement COMPARISON: Abdomen 1 View (KUB) dated 07/26/2022; Abdomen 1 View (KUB) dated 07/26/2022 FINDINGS: The NG/OG tube is entirely within the thoracic esophagus. The distal aspect of the tubing is curled in the distal third of the thoracic esophagus. Tip of the tube remains superiorly directed.
--- NOTE | 2022-07-26 18:43 | RAD REPORT ---
EXAM DESCRIPTION: RAD - Abdomen 1 View (KUB) - 07/26/2022 6:34 pm CLINICAL HISTORY: ng tube placement COMPARISON: Abdomen 1 View (KUB) dated 07/26/2022 FINDINGS: NG/OG tube has been replaced or repositioned. Tip and side port of the tubing are in the proximal portion of the decompressed stomach.
[2022-07-26] MEDS ORDERED: HYDROMORPHONE HCL 0.5 MG/0.5 ML INJ IV ONE (22:25)
[2022-07-27] MEDS ORDERED: DIPHENHYDRAMINE 50 MG/ML VIAL IV ONE (00:37)
[2022-07-27] MEDS: MORPHINE 2 MG/ML SYR IV PRN ×4 (02:54→20:51)
[2022-07-27 06:55] LABS: Absolute Lymphocytes (CBC) 1.7 K/uL (0.7-4.9); Hematocrit 39.8 % (39.6-49.0); Lymphocytes % 20.8 % (15.3-44.8); MCV 87.8 fL (80-100); MPV 9.6 fL (7.6-11.3); RBC Red Blood Cell Count 4.53 M/uL (4.33-5.43)
[2022-07-27 07:02] LABS: Potassium 3.9 mmol/L (3.5-5.1)
[2022-07-27] MEDS: ENOXAPARIN 40 MG/0.4 ML SQ SCH (08:35)
[2022-07-27] MEDS: Ringers Lactate 1,000 ML IV SCH ×2 (08:37→18:25)
--- NOTE | 2022-07-27 08:49 | P.PN ---
Subjective Date of Service: 07/27/22 Chief Complaint: Ileus, abdominal tenderness Subjective: Improving NG tube placed yesterday and set to low-intermittent suction. He reports that his abdominal pain is severe, but mildly improved from yesterday. He has been burping, but denies any flatus or bowel movement since admission. Review of Systems 10-point ROS is otherwise unremarkable Gastrointestinal: Nausea, Abdominal Pain Physical Examination - Vital Signs Temperature: 97.3 F Blood Pressure: 153/80 Pulse: 57 Respirations: 20 Pulse Ox (%): 97 - Physical Exam General: Alert, Oriented x3, Mild distress HEENT: Atraumatic, PERRLA, Mucous membr. moist/pink, Other (NG tube in place), EOMI, Sclerae nonicteric Neck: Supple, JVD not distended Respiratory: Clear to auscultation bilaterally, Normal air movement Cardiovascular: No edema, Regular rate/rhythm, Normal S1 S2, No gallops, No rubs, No murmurs Gastrointestinal: Hypoactive, No rebound, Distended, Tenderness (generalized), Guarding Musculoskeletal: No clubbing Integumentary: No rashes Neurological: Normal speech, Cranial nerves 3-12 intact, Normal affect Assessment And Plan - Plan # Acute Ileus with suspected Partial Small Bowel Obstruction - General Surgery consulted and spoke with Dr. Tamez - recommendations appreciated - NG tube in place set to low-intermittent suction - NPO - Pain control - IV fluids with Lactated Ringers' at 100 mL/hr # Hypertension # Hyperlipidemia - Holding home meds while NPO Cb Jackson M.D. Discharge Plan: Home Plan to discharge in: 48 Hours
[2022-07-27] MEDS ORDERED: KCL 20 MEQ/100 mL IVPB 20 MEQ/100 ML BAG IV ONE (09:00)
[2022-07-27] MEDS: ONDANSETRON 4 MG/2 ML VIAL IV PRN ×2 (13:09→20:51)
[2022-07-27] MEDS ORDERED: MINERAL OIL 30 ML UCUP FT ONE (16:51)
[2022-07-27] MEDS ORDERED: DIAZEPAM 5 MG TABLET PO PRN (16:54)
--- NOTE | 2022-07-27 17:27 | P.PN ---
Date of Service: 07/27/22 S: Patient feels somewhat better today. Passed any gas per rectum. Still having lower abdominal pain, but more manageable. Tolerating the nasogastric tube, now that is working. O: Abdomen is still distended, but soft minimal tenderness with no guarding or rebound. Had about 300 cc of drainage from the nasogastric tube. A: Partial small bowel obstruction appears to be resolved P: We will give him some mineral oil this evening. He will get 2 doses. He has a Valium ordered as well for some muscle relaxant. Hopefully drainage tomorrow will be less, and his bowel function will be restored. Anticipate discharge in next 24 to 48 hours.
[2022-07-27] MEDS ORDERED: KETOROLAC 30 MG/ML INJ IV PRN (18:45)
[2022-07-27] MEDS ORDERED: MINERAL OIL 30 ML UCUP PO ONE ×2 (22:00)
[2022-07-28] MEDS: Ringers Lactate 1,000 ML IV SCH ×3 (03:34→23:34)
[2022-07-28] MEDS: MORPHINE 2 MG/ML SYR IV PRN ×3 (09:42→21:00)
[2022-07-28] MEDS: ENOXAPARIN 40 MG/0.4 ML SQ SCH (09:42)
--- NOTE | 2022-07-28 12:35 | RAD REPORT ---
EXAM DESCRIPTION: RAD - Abdomen W Erect - 07/28/2022 12:13 pm CLINICAL HISTORY: SBO Pain COMPARISON: No comparisons FINDINGS: Tip of the enteric tube is in the stomach. The bowel gas pattern appears nonobstructive. N o free air seen.
[2022-07-28] MEDS: ONDANSETRON 4 MG/2 ML VIAL IV PRN (14:13)
[2022-07-28] MEDS ORDERED: MINERAL OIL 30 ML UCUP FT ONE ×2 (15:00→22:00)
[2022-07-28] MEDS ORDERED: MINERAL OIL 30 ML UCUP PO SCH (21:00)
[2022-07-28] MEDS: DIAZEPAM 5 MG TABLET PO PRN (22:30)
[2022-07-29] MEDS: MORPHINE 2 MG/ML SYR IV PRN (01:09)
[2022-07-29] MEDS: HYDROMORPHONE HCL 1 MG/ML INJ IV PRN ×5 (02:56→20:58)
[2022-07-29] MEDS: Ringers Lactate 1,000 ML IV SCH ×3 (05:04→19:34)
[2022-07-29 06:10] LABS: Absolute Lymphocytes (CBC) 1.9 K/uL (0.7-4.9); Hematocrit 39.4 % (39.6-49.0); Lymphocytes % 21.1 % (15.3-44.8); MCV 85.6 fL (80-100); MPV 9.5 fL (7.6-11.3); RBC Red Blood Cell Count 4.61 M/uL (4.33-5.43)
[2022-07-29 06:42] LABS: Potassium 3.7 mmol/L (3.5-5.1)
[2022-07-29] MEDS: ENOXAPARIN 40 MG/0.4 ML SQ SCH (08:48)
--- NOTE | 2022-07-29 14:22 | P.PN ---
Date of Service: 07/29/22 S: Patient states he is also having some abdominal pain. Has been passing gas but still states he had a horrible night with a lot of abdominal discomfort O: Abdomen is soft, still distended, minimal out through the nasogastric tube A: At this point I would expect the patient to be up having some bowel movements, and feeling better. He is not doing that however. P: Repeat CT scan with oral contrast
--- NOTE | 2022-07-29 16:41 | RAD REPORT ---
EXAM DESCRIPTION: CT - Abdomen Pelvis Wo Contrast - 07/29/2022 4:33 pm CLINICAL HISTORY: Abdominal pain. ileus COMPARISON: Abdomen Pelvis W Contrast dated 07/25/2022; Abdomen W Erect dated 07/28/2022; Abdomen 1 View (KUB) dated 07/26/2022 TECHNIQUE: CT imaging of the abdomen and pelvis was performed without contrast. Solid organ and vasc ular assessment is limited due to lack of IV contrast. All CT scans are performed using dose optimization technique as appropriate and may include automated exposure control or mA/KV adjustment according to patient size. FINDINGS: Mild linear atelectasis is present in the left lung base.Enteric tube tip is in the stomac h. The liver, spleen, pancreas, adrenal glands and kidneys are within normal limits for a limited non-co ntrast examination. No bowel obstruction, free air, free fluid or abscess. Sigmoid diverticulosis coli is present without diverticulitis. The appendix is normal. Subtle reticulation of the fat surrounding the urinary bladd er. Small fat containing inguinal hernias bilaterally. The osseous structures are within normal limits. IMPRESSION: No evidence of bowel obstruction or ileus. Sigmoid diverticulosis coli without diverticulitis. Reticulation of the fat surrounding the urinary bladder could indicate cystitis. Small fat containing inguinal hernias bilaterally. A limited non-contrast examination was performed as detailed.
[2022-07-30] MEDS: HYDROMORPHONE HCL 1 MG/ML INJ IV PRN ×5 (00:58→20:55)
--- NOTE | 2022-07-30 07:43 | P.PN ---
Subjective Date of Service: 07/28/22 Patient still some abdominal distention. Also having some tenderness. Per General surgery, NG-tube to suction. We will keep patient NPO. Repeat abdominal x-ray in morning. Review of Systems 10-point ROS is otherwise unremarkable Physical Examination - Vital Signs Temperature: 98.4 F Blood Pressure: 120/60 Pulse: 60 Respirations: 17 Pulse Ox (%): 95 - Physical Exam General: Alert, In no apparent distress, Oriented x3 HEENT: Atraumatic, PERRLA, Other ( NG tube to suction), EOMI Neck: Supple, JVD not distended Respiratory: Clear to auscultation bilaterally, Normal air movement Cardiovascular: Regular rate/rhythm, Normal S1 S2 Gastrointestinal: Hypoactive, No rebound, No guarding, Distended, Tenderness Musculoskeletal: No clubbing, No swelling, No tenderness Neurological: Normal strength at 5/5 x4 extr, Sensation intact, Cranial nerves 3-12 intact - Studies Medications List Reviewed: Yes Assessment & Plan - Problems (Diagnosis) (1) Partial small bowel obstruction Current Visit: Yes Status: Acute (2) HTN (hypertension) Current Visit: Yes Status: Acute (3) Hypothyroidism Current Visit: Yes Status: Acute - Plan -management per surgery -DVT prophylaxis -IV hydration and IV antibiotics -NPO -strict blood pressure and blood sugar control -monitor electrolytes and blood count closely -Dc Nazario catheter in 24 hr -pain control Discharge Plan: Home Plan to discharge in: Greater than 2 days - Advance Directives Does patient have a Living Will: No Does patient have a Durable POA for Healthcare: No - Code Status/Comfort Care Code Status Assessed: Yes Code Status: Full Code Physician Review: Patient Assessed, Agree with Above Assessment and Plan Critical Care: No Time Spent Managing PTS Care (In Minutes): 35
--- NOTE | 2022-07-30 07:46 | P.PN ---
Date of Service: 07/29/22 Subjective NG tube is clamped. Patient with flatus. Spoke with General surgery and wanted do CT scan to reassess. Review of Systems 10-point ROS is otherwise unremarkable Physical Examination - Vital Signs Reviewed - Physical Exam General: Alert, In no apparent distress, Oriented x3 HEENT: Atraumatic, PERRLA, Other ( NG tube to suction), EOMI Respiratory: Clear to auscultation bilaterally, Normal air movement Cardiovascular: Regular rate/rhythm, Normal S1 S2 Gastrointestinal: nl BS, No rebound, No guarding, Distended, Tenderness Musculoskeletal: No clubbing, No swelling, No tenderness Neurological: No focal deficits Assessment & Plan - Problems (Diagnosis) (1) Partial small bowel obstruction Current Visit: Yes Status: Acute (2) HTN (hypertension) Current Visit: Yes Status: Acute (3) Hypothyroidism Current Visit: Yes Status: Acute - Plan -will repeat CT imaging -management per surgery -DVT prophylaxis -IV hydration and IV antibiotics -NPO -strict blood pressure and blood sugar control -monitor electrolytes and blood count closely -clamp NG tube -pain control Discharge Plan: Home Plan to discharge in: 24hrs - Advance Directives Does patient have a Living Will: No Does patient have a Durable POA for Healthcare: No - Code Status/Comfort Care Code Status Assessed: Yes Code Status: Full Code Physician Review: Patient Assessed, Agree with Above Assessment and Plan Critical Care: No Time Spent Managing PTS Care (In Minutes): 35
[2022-07-30] MEDS: ENOXAPARIN 40 MG/0.4 ML SQ SCH (08:17)
[2022-07-30] MEDS: Ringers Lactate 1,000 ML IV SCH ×3 (08:17→21:58)
[2022-07-30] MEDS ORDERED: MINERAL OIL 30 ML UCUP PO ONE (10:53)
--- NOTE | 2022-07-30 14:15 | P.PN ---
Date of Service: 07/30/22 S: Patient still is having a small mild amount of pain today, nothing like when he first presented. Has been up ambulating. Tolerating full liquids. O: Vital signs are stable, abdomen is soft minimal tenderness today still mildly distended. CT scan was essentially negative apart from some discussion of inflammation around the bladder, and 2 fat filled hernias [from which he is asymptomatic]. A: Patient is much improved, pain is manageable, anticipate discharge soon. Recommend he follow-up with his urologist, and primary care physician. P: Advance diet as tolerated.
[2022-07-30] MEDS ORDERED: CEFTRIAXONE 1,000 MG in NA CHLORIDE 0.9% 50 ML IVPB ONE (15:10)
[2022-07-30] MEDS: CEFTRIAXONE 1,000 MG in NA CHLORIDE 0.9% 50 ML IVPB SCH (16:04)
[2022-07-30 16:44] LABS: Specific Gravity 1.014 (1.005-1.030); Urine Bilirubin NEGATIVE (Negative); Urine Clarity Clear (Clear); Urine Color Light-Yellow (Yellow); Urine Glucose NEGATIVE (Negative)
[2022-07-30 16:45] LABS: Urine Bacteria <20 /HPF (<20); Urine Blood Negative (Negative); Urine Mucus Slight /HPF (None Seen); Urine Protein 1+ (Negative); Urine RBC <5 /HPF (None Seen); Urine Urobilinogen Normal (Normal)
[2022-07-30] MEDS: DIAZEPAM 5 MG TABLET PO PRN (21:58)
[2022-07-31] MEDS: HYDROMORPHONE HCL 1 MG/ML INJ IV PRN ×2 (01:25→09:44)
[2022-07-31] MEDS: Ringers Lactate 1,000 ML IV SCH (01:34)
[2022-07-31 06:38] LABS: Absolute Lymphocytes (CBC) 1.8 K/uL (0.7-4.9); Hematocrit 38.7 % (39.6-49.0); Lymphocytes % 23.2 % (15.3-44.8); MPV 9.5 fL (7.6-11.3); RBC Red Blood Cell Count 4.45 M/uL (4.33-5.43)
[2022-07-31 06:39] LABS: Potassium 3.8 mmol/L (3.5-5.1)
--- NOTE | 2022-07-31 08:34 | RAD REPORT ---
EXAM DESCRIPTION: RAD - Abdomen W Erect - 07/31/2022 6:04 am CLINICAL HISTORY: Pain Pain COMPARISON: Abdomen W Erect dated 07/28/2022; Abdomen Pelvis Wo Contrast dated 07/29/2022 FINDINGS: Contrast is seen in the colon. The bowel gas pattern is non-obstructive. No evidence of fr ee air or pneumatosis. No suspicious calcifications. No significant bony findings. IMPRESSION: No evidence of bowel obstruction or other acute process.
[2022-07-31] MEDS ORDERED: CEFTRIAXONE 1,000 MG in NA CHLORIDE 0.9% 50 ML IVPB SCH (09:00)
[2022-07-31] MEDS ORDERED: POTASSIUM CL SA 10 MEQ TAB PO ONE (09:00)
[2022-07-31] MEDS: ENOXAPARIN 40 MG/0.4 ML SQ SCH (09:44)
[2022-07-31] MEDS: CEFTRIAXONE 1,000 MG in NA CHLORIDE 0.9% 50 ML IVPB SCH (09:44)
[2022-07-31 12:40] VITALS: BP 166/94; TEMP 97.6
== END 2022-07-31 14:04 | disposition home or self-care (01) | DRG 390 ==
LOC: ER 20:13 → ERHOLD 07-26 00:36 → 4TH 07-26 00:58 → OBSVTOIN 07-26 16:20
PROVIDERS: ADMIT Internal Medicine; ATTEND Hospitalist
DX: K56.690 Other partial intestinal obstruction (principal); I10 Essential (primary) hypertension; E78.5 Hyperlipidemia, unspecified; E03.9 Hypothyroidism, unspecified; Z79.01 Long term (current) use of anticoagulants; Z79.890 Hormone replacement therapy; Z79.899 Other long term (current) drug therapy; Z20.822 Contact with and (suspected) exposure to COVID-19
CPT/HCPCS: 36415; 74018; 74019; 74176; 74177; 80048; 80053; 81001; 83690; 85025; 87811; 96374; 96375; 99283; C9113; G0378; J1170; J1200; J1650; J2270; J2405; J3480; J7030; J7120; Q9967

== ENCOUNTER 2022-08-13 07:54 | Day surgery (SDC) | payer BC ==
--- NOTE | 2022-08-12 15:46 | RAD REPORT ---
EXAM DESCRIPTION: Derek Sher (2 Views)08/12/2022 3:39 pm CLINICAL HISTORY: Preop for hernia repair COMPARISON: None FINDINGS: The lungs appear clear of acute infiltrate. The heart is normal size IMPRESSION: No acute abnormalities displayed
[2022-08-13] MEDS ORDERED: CEFAZOLIN SODIUM 1 GM/VIAL ONE (08:10)
[2022-08-13] MEDS ORDERED: Ringers Lactate 1,000 ML IV ONE ×2 (08:10→11:29)
[2022-08-13] MEDS ORDERED: LIDOCAINE 1% MPF 5 ML VIAL ONE (09:10)
[2022-08-13] MEDS ORDERED: MIDAZOLAM HCL 2 MG/2 ML INJ ONE (09:10)
[2022-08-13] MEDS ORDERED: ROCURONIUM 50 MG/5 ML VIAL IV ONE (09:10)
[2022-08-13] MEDS ORDERED: FENTANYL CITR 100 MCG/2 ML ONE (09:10)
[2022-08-13] MEDS ORDERED: propofoL 200 MG/20 ML VIAL IV ONE (09:10)
[2022-08-13] MEDS ORDERED: NS 0.9% VIAL 10 ML ONE (09:43)
[2022-08-13] MEDS ORDERED: GLYCOPYRROLATE 0.2 MG/ML SYR ONE ×2 (10:29→10:51)
[2022-08-13] MEDS ORDERED: KETOROLAC 30 MG/ML INJ ONE (10:31)
[2022-08-13] MEDS ORDERED: dexAMETHasone 4 MG/ML VIAL ONE (10:31)
[2022-08-13] MEDS ORDERED: ONDANSETRON 4 MG/2 ML VIAL ONE (10:31)
[2022-08-13] MEDS ORDERED: NEOSTIGMINE 1 MG/ML -5 ML ONE (10:52)
--- NOTE | 2022-08-13 11:00 | P.BOP ---
Preoperative diagnosis: tender bilateral inguinal hernias Postoperative diagnosis: same Primary procedure: 1. Laparoscoppic repair of left inguinal hernia with mesh Secondary procedure: 2. Laparoscoppic repair of right inguinal hernia with mesh Conditioning Yard Supervisor: NICOLA SMITH (DIRECTOR OF NEUROLOGY) Estimated blood loss: <10cc Specimen: none Findings: as above Anesthesia: General Complications: None Drain(s): Other Implants: 3D mesh bilateral Transferred to: Recovery Room Condition: Good
[2022-08-13] MEDS ORDERED: PROMETHAZINE INJ 25 MG/ML AMP ONE (11:10)
[2022-08-13] MEDS: HYDROMORPHONE HCL 1 MG/ML INJ ONE ×4 (11:22→11:37)
[2022-08-13] MEDS ORDERED: CODEINE 30MG/APAP 300MG TAB ONE (12:18)
[2022-08-13] MEDS ORDERED: TAMSULOSIN 0.4 MG SR CAP ONE (13:56)
[2022-08-13] MEDS ORDERED: TAMSULOSIN 0.4 MG SR CAP PO ONE (14:00)
[2022-08-13 14:35] VITALS: BP 136/72; TEMP 9736; O2SAT 100
--- NOTE | 2022-08-13 16:35 | EKG ---
Test Date: 2022-08-12 Test Time: 15:27:32 Mds Manager: VIVI MEASUREMENT RESULTS: Intervals: Rate: 53 CA: 144 QRSD: 154 QT: 480 QTc: 450 [place]: P: 35 CA: 144 QRS: -45 T: -39 INTERPRETIVE STATEMENTS: Sinus bradycardia Left axis deviation Right bundle branch block Moderate voltage criteria for LVH, may be normal variant T wave abnormality, consider inferolateral ischemia Abnormal ECG Compared to ECG 02/03/2021 23:07:02 Left-axis deviation now present Left ventricular hypertrophy now present T-wave abnormality still present Possible ischemia still present Electronically Signed On 08-13-22 16:33:35 CDT by Cirilo Brunner
== END 2022-08-13 14:21 | disposition home or self-care (01) ==
LOC: OR 07:54
PROVIDERS: ATTEND Surgery
PROC: 0YUA4JZ Supplement Bilateral Inguinal Region with Synthetic Substitute, Percutaneous Endoscopic Approach (ICD-10-PCS; principal; 2022-08-13 10:15)
DX: K40.20 Bilateral inguinal hernia, without obstruction or gangrene, not specified as recurrent (principal); I10 Essential (primary) hypertension; E03.9 Hypothyroidism, unspecified; J45.909 Unspecified asthma, uncomplicated; B19.20 Unspecified viral hepatitis C without hepatic coma
CPT/HCPCS: 93005; 71046; 49650; J2704; J1100; J2550; J2001; J2250; J3010; A4216; J1170 ×2; J2710; J7120 ×2; J2405; J0690

== ENCOUNTER 2022-09-06 20:50 | Emergency (ER) | payer BC ==
--- OUTSIDE RECORDS SUMMARY | 2022-09-06 20:56 | XMS REPORT | Continuity of Care Document ---
:1960 Author Organization [facility] t Address [address] [place] [address] Care Team Providers Name Role Phone Naresh Rhoades Attending Clinician Unavailable Janet Nuñez Attending Clinician Unavailable PRICILLA CARRINGTON Attending Clinician Unavailable Payers Payer Name Policy Type Policy Number Effective Date Expiration Date S ource [employer] 6 [id number] 2020 [facility] t Blue Shield of 00:00:00 - [facility] [id number] 2014 00:00:00 Problems Condition Condition Condition Status Onset Resolution Last Treating Co mments Source Name Details Category Date Date Treatment Clinician Date Calcaneal Heel spur, Problem Co mmon spur left [facility] [id number] Autoimmune Problem Com mon thyroiditi Spirit s - [facility] [id number] Other Problem Common specified Spirit hypothyroi - [facility] dism [facility] [id number] Atopic Problem Common dermatitis Spirit , - [facility] unspecifie d [facility] [id number] Body mass Problem Com mon index Spirit [BMI] - [facility] 37.0-37.9, [facility] [id number] Morbid Problem Commo n 9104 (severe) Spirit obesity - [facility] due to [facility] Benign BPH Problem Common prostatic (benign Spirit hyperplasi prostatic - C HI a hyperplasi [facility] Insomnia Insomnia Problem Commo n [facility] Gastroesop GERD Problem Commo n hageal ([facility]eso [facility] Poly[facility]ra Polyarthra Problem C ommon lgia lgia [facility] Obese BMI Problem Common class I 33.0-33.9, Spiri t [facility] Benign Benign Problem Common essential essential Spir it hypertensi hypertensi - [facility] on on [facility] Asthma Asthma Problem Common [facility] Obesity Other Problem Common obesity [facility] Chronic Hep C w/o Problem Commo n hepatitis coma, [facility] Hyperlipid HLD Problem Commo n aemia (hyperlipi Spirit demia) [facility] Allergies, Adverse Reactions, Alerts Allergy Allergy Status Severity Reaction(s) Onset Inactive Treating Comm ents Source Name Type Date Date Clinician NO KNOWN Drug Active Univers ALLERGIE Class ity of S [facility] Social History Social Habit Start Date Stop Date Quantity Comments Source History of Tobacco Use Co mmon [facility] Sex Assigned At Com mon [facility] Smoking Status Start Date Stop Date Source Former Smoker 2022-08-04 00:00:00 2022-08-04 00:00:00 [facility] Medications Ordered Filled Start Stop Current Ordering Indication Dosage Frequency Signature Comments Components Source Medication Medication Date Date Medication? Clinician (SIG) Name Name Jamarcus Ricketts No Triamcinol ne ne 06-27 one Acetonide Acetonide 00:00: Acetonide 0.1 % 0.1 % 00 0.1 % Triamcinolo Triamcinolo No Triamcinol ne ne 06-27 one Acetonide Acetonide 00:00: Acetonide 0.1 % 0.1 % 00 0.1 % Triamcinolo Triamcinolo No Triamcinol ne ne 06-27 one Acetonide Acetonide 00:00: Acetonide 0.1 % 0.1 % 00 0.1 % Trelegy Trelegy 2021- 1{puff} QD Trelegy Ellipta Ellipta 06-27 Ellipta 200-62.5-25 200-62.5-25 00:00: 00:00 200-62.5-2 MCG/INH MCG/INH 00 :00 5 MCG/INH Trelegy Trelegy 2- No 1{puff} QD Trelegy Ellipta Ellipta 06-27 Ellipta 200-62.5-25 200-62.5-25 00:00: 00:00 200-62.5-2 MCG/INH MCG/INH 00 :00 5 MCG/INH Trelegy Trelegy 2021- No 1{puff} QD Trelegy Ellipta Ellipta 06-27 Ellipta 200-62.5-25 200-62.5-25 00:00: 00:00 200-62.5-2 MCG/INH MCG/INH 00 :00 5 MCG/INH Levothyroxi Levothyroxi 2021-0 No QD Levothyrox ne Sodium ne Sodium 03-28 ine Sodium 50 MCG 50 MCG 00:00: 50 MCG 00 methylPREDN methylPREDN 2020-10- No QD methylPRED ISolone 4 ISolone 4 0-15 08-27 NISolone 4 MG MG 00:00: 00:00 MG 00 :00 methylPREDN methylPREDN 2020-10- No QD methylPRED ISolone 4 ISolone 4 0-21 10-27 NISolone 4 MG MG 00:00: 00:00 MG 00 :00 Omeprazole Omeprazole No Omeprazole 40 MG 40 MG 40 MG Albuterol Albuterol No Albuterol Sulfate HFA Sulfate HFA Sulfate 108 (90 108 (90 HFA 108 Base) Base) (90 Base) MCG/ACT MCG/ACT MCG/ACT Lisinopril- Lisinopril- No 1{table QD Lisinopril hydroCHLORO hydroCHLORO t} -hydroCHLO thiazide thiazide ROthiazide 20-25 MG 20-25 MG 20-25 MG Advair HFA Advair HFA No 2{puffs BID Advair HFA 230-21 230-21 } 230-21 MCG/ACT MCG/ACT MCG/ACT Meloxicam Meloxicam No Meloxicam 7.5 MG 7.5 MG 7.5 MG amLODIPine amLODIPine No 1{table QD amLODIPine Besylate 5 Besylate 5 t} Besylate 5 MG MG MG Omeprazole Omeprazole No Omeprazole 40 MG 40 MG 40 MG hydrOXYzine hydrOXYzine No hydrOXYzin HCl 50 MG HCl 50 MG e HCl 50 MG traZODone traZODone No traZODone HCl 100 MG HCl 100 MG HCl 100 MG traZODone traZODone No .5{tabl QD traZODone HCl 100 MG HCl 100 MG et_at_b HCl 100 MG edtime} Meloxicam Meloxicam No Meloxicam 7.5 MG 7.5 MG 7.5 MG Omeprazole Omeprazole No Omeprazole 40 MG 40 MG 40 MG Symbicort Symbicort No Symbicort 160-4.5 160-4.5 160-4.5 MCG/ACT MCG/ACT MCG/ACT Albuterol Albuterol No Albuterol Sulfate HFA Sulfate HFA Sulfate 108 (90 108 (90 HFA 108 Base) Base) (90 Base) MCG/ACT MCG/ACT MCG/ACT Lisinopril- Lisinopril- No 1{table QD Lisinopril hydroCHLORO hydroCHLORO t} -hydroCHLO thiazide thiazide ROthiazide 20-25 MG 20-25 MG 20-25 MG Advair HFA Advair HFA No 2{puffs BID Advair HFA 230-21 230-21 } 230-21 MCG/ACT MCG/ACT MCG/ACT Meloxicam Meloxicam No Meloxicam 7.5 MG 7.5 MG 7.5 MG amLODIPine amLODIPine No 1{table QD amLODIPine Besylate 5 Besylate 5 t} Besylate 5 MG MG MG Omeprazole Omeprazole No Omeprazole 40 MG 40 MG 40 MG hydrOXYzine hydrOXYzine No hydrOXYzin HCl 50 MG HCl 50 MG e HCl 50 MG traZODone traZODone No traZODone HCl 100 MG HCl 100 MG HCl 100 MG traZODone traZODone No .5{tabl QD traZODone HCl 100 MG HCl 100 MG et_at_b HCl 100 MG edtime} Meloxicam Meloxicam No Meloxicam 7.5 MG 7.5 MG 7.5 MG Omeprazole Omeprazole No Omeprazole 40 MG 40 MG 40 MG Symbicort Symbicort No Symbicort 160-4.5 160-4.5 160-4.5 MCG/ACT MCG/ACT MCG/ACT Lisinopril- Lisinopril- No 1{table QD Lisinopril hydroCHLORO hydroCHLORO t} -hydroCHLO thiazide thiazide ROthiazide 20-25 MG 20-25 MG 20-25 MG amLODIPine amLODIPine No amLODIPine Besylate 10 Besylate 10 Besylate MG MG 10 MG traZODone traZODone No traZODone HCl 100 MG HCl 100 MG HCl 100 MG hydrOXYzine hydrOXYzine No hydrOXYzin HCl 50 MG HCl 50 MG e HCl 50 MG Albuterol Albuterol No Albuterol Sulfate HFA Sulfate HFA Sulfate 108 (90 108 (90 HFA 108 Base) Base) (90 Base) MCG/ACT MCG/ACT MCG/ACT Omeprazole Omeprazole No Omeprazole 40 MG 40 MG 40 MG Symbicort Symbicort No Symbicort 160-4.5 160-4.5 160-4.5 MCG/ACT MCG/ACT MCG/ACT Advair HFA Advair HFA No 2{puffs BID Advair HFA 230-21 230-21 } 230-21 MCG/ACT MCG/ACT MCG/ACT Meloxicam Meloxicam No Meloxicam 7.5 MG 7.5 MG 7.5 MG Omeprazole Omeprazole No Omeprazole 40 MG 40 MG 40 MG traZODone traZODone No traZODone HCl 100 MG HCl 100 MG HCl 100 MG hydrOXYzine hydrOXYzine No hydrOXYzin HCl 50 MG HCl 50 MG e HCl 50 MG Meloxicam Meloxicam No Meloxicam 7.5 MG 7.5 MG 7.5 MG Omeprazole Omeprazole No Omeprazole 40 MG 40 MG 40 MG Advair HFA Advair HFA No 2{puffs BID Advair HFA 230-21 230-21 } 230-21 MCG/ACT MCG/ACT MCG/ACT amLODIPine amLODIPine No 1{table QD amLODIPine Besylate 5 Besylate 5 t} Besylate 5 MG MG MG Omeprazole Omeprazole No Omeprazole 40 MG 40 MG 40 MG Symbicort Symbicort No Symbicort 160-4.5 160-4.5 160-4.5 MCG/ACT MCG/ACT MCG/ACT Meloxicam Meloxicam No Meloxicam 7.5 MG 7.5 MG 7.5 MG Albuterol Albuterol No Albuterol Sulfate HFA Sulfate HFA Sulfate 108 (90 108 (90 HFA 108 Base) Base) (90 Base) MCG/ACT MCG/ACT MCG/ACT Lisinopril- Lisinopril- No 1{table QD Lisinopril hydroCHLORO hydroCHLORO t} -hydroCHLO thiazide thiazide ROthiazide 20-25 MG 20-25 MG 20-25 MG amLODIPine amLODIPine No amLODIPine Besylate 10 Besylate 10 Besylate MG MG 10 MG traZODone traZODone No .5{tabl QD traZODone HCl 100 MG HCl 100 MG et_at_b HCl 100 MG edtime} Albuterol Albuterol No 2{puff_ TID Albuterol Sulfate 108 Sulfate 108 as_need Sulfate (90 Base) (90 Base) ed} 108 (90 MCG/ACT MCG/ACT Base) MCG/ACT traZODone traZODone No traZODone HCl 100 MG HCl 100 MG HCl 100 MG Meloxicam Meloxicam No Meloxicam 7.5 MG 7.5 MG 7.5 MG Meloxicam Meloxicam No Meloxicam 7.5 MG 7.5 MG 7.5 MG amLODIPine amLODIPine No 1{table QD amLODIPine Besylate 5 Besylate 5 t} Besylate 5 MG MG MG Lisinopril- Lisinopril- No 1{table QD Lisinopril hydroCHLORO hydroCHLORO t} -hydroCHLO thiazide thiazide ROthiazide 20-25 MG 20-25 MG 20-25 MG Advair HFA Advair HFA No 2{puffs BID Advair HFA 230-21 230-21 } 230-21 MCG/ACT MCG/ACT MCG/ACT traZODone traZODone No .5{tabl QD traZODone HCl 100 MG HCl 100 MG et_at_b HCl 100 MG edtime} hydrOXYzine hydrOXYzine No hydrOXYzin HCl 50 MG HCl 50 MG e HCl 50 MG Omeprazole Omeprazole No Omeprazole 40 MG 40 MG 40 MG Symbicort Symbicort No Symbicort 160-4.5 160-4.5 160-4.5 MCG/ACT MCG/ACT MCG/ACT Lisinopril- Lisinopril- No 1{table QD Lisinopril hydroCHLORO hydroCHLORO t} -hydroCHLO thiazide thiazide ROthiazide 20-25 MG 20-25 MG 20-25 MG Albuterol Albuterol No Albuterol Sulfate HFA Sulfate HFA Sulfate 108 (90 108 (90 HFA 108 Base) Base) (90 Base) MCG/ACT MCG/ACT MCG/ACT Albuterol Albuterol No 2{puff_ TID Albuterol Sulfate 108 Sulfate 108 as_need Sulfate (90 Base) (90 Base) ed} 108 (90 MCG/ACT MCG/ACT Base) MCG/ACT amLODIPine amLODIPine No amLODIPine Besylate 10 Besylate 10 Besylate MG MG 10 MG Omeprazole Omeprazole No Omeprazole 40 MG 40 MG 40 MG Lisinopril- Lisinopril- No 1{table QD Lisinopril hydroCHLORO hydroCHLORO t} -hydroCHLO thiazide thiazide ROthiazide 20-25 MG 20-25 MG 20-25 MG traZODone traZODone No traZODone HCl 100 MG HCl 100 MG HCl 100 MG hydrOXYzine hydrOXYzine No hydrOXYzin HCl 50 MG HCl 50 MG e HCl 50 MG Meloxicam Meloxicam No Meloxicam 7.5 MG 7.5 MG 7.5 MG Omeprazole Omeprazole No Omeprazole 40 MG 40 MG 40 MG Albuterol Albuterol No Albuterol Sulfate HFA Sulfate HFA Sulfate 108 (90 108 (90 HFA 108 Base) Base) (90 Base) MCG/ACT MCG/ACT MCG/ACT Albuterol Albuterol No 2{puff_ TID Albuterol Sulfate 108 Sulfate 108 as_need Sulfate (90 Base) (90 Base) ed} 108 (90 MCG/ACT MCG/ACT Base) MCG/ACT Symbicort Symbicort No Symbicort 160-4.5 160-4.5 160-4.5 MCG/ACT MCG/ACT MCG/ACT Levothyroxi Levothyroxi No QD Levothyrox ne Sodium ne Sodium ine Sodium 50 MCG 50 MCG 50 MCG Levothyroxi Levothyroxi No QD Levothyrox ne Sodium ne Sodium ine Sodium 50 MCG 50 MCG 50 MCG Omeprazole Omeprazole No Omeprazole 40 MG 40 MG 40 MG amLODIPine amLODIPine No amLODIPine Besylate 10 Besylate 10 Besylate MG MG 10 MG Advair HFA Advair HFA No 2{puffs BID Advair HFA 230-21 230-21 } 230-21 MCG/ACT MCG/ACT MCG/ACT amLODIPine amLODIPine No 1{table QD amLODIPine Besylate 10 Besylate 10 t} Besylate MG MG 10 MG Lisinopril- Lisinopril- No 1{table QD Lisinopril hydroCHLORO hydroCHLORO t} -hydroCHLO thiazide thiazide ROthiazide 20-25 MG 20-25 MG 20-25 MG hydrOXYzine hydrOXYzine No hydrOXYzin HCl 50 MG HCl 50 MG e HCl 50 MG traZODone traZODone No traZODone HCl 100 MG HCl 100 MG HCl 100 MG Meloxicam Meloxicam No Meloxicam 7.5 MG 7.5 MG 7.5 MG Meloxicam Meloxicam No Meloxicam 7.5 MG 7.5 MG 7.5 MG Lisinopril- Lisinopril- No 1{table QD Lisinopril hydroCHLORO hydroCHLORO t} -hydroCHLO thiazide thiazide ROthiazide 20-25 MG 20-25 MG 20-25 MG Omeprazole Omeprazole No Omeprazole 40 MG 40 MG 40 MG Albuterol Albuterol No Albuterol Sulfate HFA Sulfate HFA Sulfate 108 (90 108 (90 HFA 108 Base) Base) (90 Base) MCG/ACT MCG/ACT MCG/ACT Omeprazole Omeprazole No Omeprazole 40 MG 40 MG 40 MG Albuterol Albuterol No 2{puff_ TID Albuterol Sulfate 108 Sulfate 108 as_need Sulfate (90 Base) (90 Base) ed} 108 (90 MCG/ACT MCG/ACT Base) MCG/ACT Symbicort Symbicort No Symbicort 160-4.5 160-4.5 160-4.5 MCG/ACT MCG/ACT MCG/ACT Levothyroxi Levothyroxi No QD Levothyrox ne Sodium ne Sodium ine Sodium 50 MCG 50 MCG 50 MCG traZODone traZODone No traZODone HCl 100 MG HCl 100 MG HCl 100 MG Levothyroxi Levothyroxi No QD Levothyrox ne Sodium ne Sodium ine Sodium 50 MCG 50 MCG 50 MCG amLODIPine amLODIPine No amLODIPine Besylate 10 Besylate 10 Besylate MG MG 10 MG Advair HFA Advair HFA No 2{puffs BID Advair HFA 230-21 230-21 } 230-21 MCG/ACT MCG/ACT MCG/ACT hydrOXYzine hydrOXYzine No hydrOXYzin HCl 50 MG HCl 50 MG e HCl 50 MG amLODIPine amLODIPine No 1{table QD amLODIPine Besylate 10 Besylate 10 t} Besylate MG MG 10 MG hydrOXYzine hydrOXYzine No hydrOXYzin HCl 50 MG HCl 50 MG e HCl 50 MG Lisinopril- Lisinopril- No 1{table QD Lisinopril hydroCHLORO hydroCHLORO t} -hydroCHLO thiazide thiazide ROthiazide 20-25 MG 20-25 MG 20-25 MG Meloxicam Meloxicam No Meloxicam 7.5 MG 7.5 MG 7.5 MG Lisinopril- Lisinopril- No 1{table QD Lisinopril hydroCHLORO hydroCHLORO t} -hydroCHLO thiazide thiazide ROthiazide 20-25 MG 20-25 MG 20-25 MG Omeprazole Omeprazole No Omeprazole 40 MG 40 MG 40 MG Albuterol Albuterol No Albuterol Sulfate HFA Sulfate HFA Sulfate 108 (90 108 (90 HFA 108 Base) Base) (90 Base) MCG/ACT MCG/ACT MCG/ACT Omeprazole Omeprazole No Omeprazole 40 MG 40 MG 40 MG Albuterol Albuterol No 2{puff_ TID Albuterol Sulfate 108 Sulfate 108 as_need Sulfate (90 Base) (90 Base) ed} 108 (90 MCG/ACT MCG/ACT Base) MCG/ACT Symbicort Symbicort No Symbicort 160-4.5 160-4.5 160-4.5 MCG/ACT MCG/ACT MCG/ACT Levothyroxi Levothyroxi No QD Levothyrox ne Sodium ne Sodium ine Sodium 50 MCG 50 MCG 50 MCG traZODone traZODone No traZODone HCl 100 MG HCl 100 MG HCl 100 MG Levothyroxi Levothyroxi No QD Levothyrox ne Sodium ne Sodium ine Sodium 50 MCG 50 MCG 50 MCG amLODIPine amLODIPine No amLODIPine Besylate 10 Besylate 10 Besylate MG MG 10 MG Advair HFA Advair HFA No 2{puffs BID Advair HFA 230-21 230-21 } 230-21 MCG/ACT MCG/ACT MCG/ACT hydrOXYzine hydrOXYzine No hydrOXYzin HCl 50 MG HCl 50 MG e HCl 50 MG amLODIPine amLODIPine No 1{table QD amLODIPine Besylate 10 Besylate 10 t} Besylate MG MG 10 MG hydrOXYzine hydrOXYzine No hydrOXYzin HCl 50 MG HCl 50 MG e HCl 50 MG Lisinopril- Lisinopril- No 1{table QD Lisinopril hydroCHLORO hydroCHLORO t} -hydroCHLO thiazide thiazide ROthiazide 20-25 MG 20-25 MG 20-25 MG traZODone traZODone No traZODone HCl 100 MG HCl 100 MG HCl 100 MG Cefdinir Cefdinir No Cefdinir 300 MG 300 MG 300 MG HYDROcodone HYDROcodone No 1{table QID HYDROcodon -Acetaminop -Acetaminop t_as_ne e-Acetamin hen 5-325 hen 5-325 eded} ophen MG MG 5-325 MG Lisinopril- Lisinopril- No 1{table QD Lisinopril hydroCHLORO hydroCHLORO t} -hydroCHLO thiazide thiazide ROthiazide 20-25 MG 20-25 MG 20-25 MG Trelegy Trelegy No 1{puff} QD Trelegy Ellipta Ellipta Ellipta 200-62.5-25 200-62.5-25 200-62.5-2 MCG/INH MCG/INH 5 MCG/INH Advair HFA Advair HFA No 2{puffs BID Advair HFA 230-21 230-21 } 230-21 MCG/ACT MCG/ACT MCG/ACT traZODone traZODone No traZODone HCl 100 MG HCl 100 MG HCl 100 MG Albuterol Albuterol No 2{puff_ TID Albuterol Sulfate 108 Sulfate 108 as_need Sulfate (90 Base) (90 Base) ed} 108 (90 MCG/ACT MCG/ACT Base) MCG/ACT amLODIPine amLODIPine No 1{table QD amLODIPine Besylate 5 Besylate 5 t} Besylate 5 MG MG MG Meloxicam Meloxicam No Meloxicam 7.5 MG 7.5 MG 7.5 MG Albuterol Albuterol No Albuterol Sulfate HFA Sulfate HFA Sulfate 108 (90 108 (90 HFA 108 Base) Base) (90 Base) MCG/ACT MCG/ACT MCG/ACT Triamcinolo Triamcinolo No Triamcinol ne ne one Acetonide Acetonide Acetonide 0.1 % 0.1 % 0.1 % Docusate Docusate No 1{capsu QD Docusate Sodium 100 Sodium 100 le_as_n Sodium 100 MG MG eeded} MG Omeprazole Omeprazole No Omeprazole 40 MG 40 MG 40 MG Omeprazole Omeprazole No Omeprazole 40 MG 40 MG 40 MG Symbicort Symbicort No Symbicort 160-4.5 160-4.5 160-4.5 MCG/ACT MCG/ACT MCG/ACT hydrOXYzine hydrOXYzine No hydrOXYzin HCl 50 MG HCl 50 MG e HCl 50 MG Meloxicam Meloxicam No Meloxicam 7.5 MG 7.5 MG 7.5 MG Levothyroxi Levothyroxi No QD Levothyrox ne Sodium ne Sodium ine Sodium 50 MCG 50 MCG 50 MCG Albuterol Albuterol No 2{puff_ TID Albuterol Sulfate 108 Sulfate 108 as_need Sulfate (90 Base) (90 Base) ed} 108 (90 MCG/ACT MCG/ACT Base) MCG/ACT Meloxicam Meloxicam No Meloxicam 7.5 MG 7.5 MG 7.5 MG Advair HFA Advair HFA No 2{puffs BID Advair HFA 230-21 230-21 } 230-21 MCG/ACT MCG/ACT MCG/ACT Meloxicam Meloxicam No Meloxicam 7.5 MG 7.5 MG 7.5 MG Symbicort Symbicort No Symbicort 160-4.5 160-4.5 160-4.5 MCG/ACT MCG/ACT MCG/ACT Omeprazole Omeprazole No Omeprazole 40 MG 40 MG 40 MG Lisinopril- Lisinopril- No 1{table QD Lisinopril hydroCHLORO hydroCHLORO t} -hydroCHLO thiazide thiazide ROthiazide 20-25 MG 20-25 MG 20-25 MG hydrOXYzine hydrOXYzine No hydrOXYzin HCl 50 MG HCl 50 MG e HCl 50 MG amLODIPine amLODIPine No 1{table QD amLODIPine Besylate 5 Besylate 5 t} Besylate 5 MG MG MG traZODone traZODone No .5{tabl QD traZODone HCl 100 MG HCl 100 MG et_at_b HCl 100 MG edtime} traZODone traZODone No traZODone HCl 100 MG HCl 100 MG HCl 100 MG Omeprazole Omeprazole No Omeprazole 40 MG 40 MG 40 MG hydrOXYzine hydrOXYzine No hydrOXYzin HCl 50 MG HCl 50 MG e HCl 50 MG Meloxicam Meloxicam No Meloxicam 7.5 MG 7.5 MG 7.5 MG Advair HFA Advair HFA No 2{puffs BID Advair HFA 230-21 230-21 } 230-21 MCG/ACT MCG/ACT MCG/ACT Meloxicam Meloxicam No Meloxicam 7.5 MG 7.5 MG 7.5 MG Symbicort Symbicort No Symbicort 160-4.5 160-4.5 160-4.5 MCG/ACT MCG/ACT MCG/ACT Omeprazole Omeprazole No Omeprazole 40 MG 40 MG 40 MG Lisinopril- Lisinopril- No 1{table QD Lisinopril hydroCHLORO hydroCHLORO t} -hydroCHLO thiazide thiazide ROthiazide 20-25 MG 20-25 MG 20-25 MG Albuterol Albuterol No Albuterol Sulfate HFA Sulfate HFA Sulfate 108 (90 108 (90 HFA 108 Base) Base) (90 Base) MCG/ACT MCG/ACT MCG/ACT amLODIPine amLODIPine No 1{table QD amLODIPine Besylate 5 Besylate 5 t} Besylate 5 MG MG MG traZODone traZODone No .5{tabl QD traZODone HCl 100 MG HCl 100 MG et_at_b HCl 100 MG edtime} traZODone traZODone No traZODone HCl 100 MG HCl 100 MG HCl 100 MG Immunizations Ordered Immunization Filled Immunization Date Status Commen ts Source Name Name [facility] 2021-08-15 [facility] 2021-08-15 [facility] 2021-08-15 [facility] 2021-08-15 [facility]24[facility] 2021-08-15 [facility]:24[facility]00 [facility] 2021-08-15 [facility]:24[facility]00 [facility] Afluria Afluria 2021-08-15 [facility] 16:24[facility]00 [facility] Afluria Afluria 2021-08-15 [facility] 16:24:00 [facility] Pfizer COVID-19 Pfizer COVID-19 2021-06-14 Completed [facility] Vaccine 16:31:00 [facility] Pfizer COVID-19 Pfizer COVID-19 2021-06-14 Completed [facility] 16:31:00 [facility] Pfizer COVID-19 Pfizer COVID-19 2021-06-14 Completed [facility] 16:31:00 [facility] Pfizer COVID-19 Pfizer COVID-19 2021-06-14 [facility] 16:31:00 [facility] Pfizer COVID-19 Pfizer COVID-19 2021-06-14 [facility] 16:31:00 [facility] Pfizer COVID-19 Pfizer COVID-19 2021-06-14 [facility] 16:31:00 [facility] Pfizer COVID-19 Pfizer COVID-19 2021-06-14 [facility] Vacc[facility] 16:31:00 [facility] Pfizer COVID-19 Pfizer COVID-19 2021-06-14 [facility] Vacc[facility] 16:31:00 [facility] Pfizer COVID-19 Pfizer COVID-19 2021-06-14 [facility] 16:31:00 [facility] Pfizer COVID-19 Pfizer COVID-19 2021-01-11 Completed [facility] 16:30:00 [facility] Pfizer COVID-19 Pfizer COVID-19 2021-01-11 [facility] 16:30:00 [facility] Pfizer COVID-19 Pfizer COVID-19 2021-01-11 [facility] 16:30:00 [facility] Pfizer COVID-19 Pfizer COVID-19 2021-01-11 [facility] 16:30:00 [facility] Pfizer COVID-19 Pfizer COVID-19 2021-01-11 [facility] 16:30:00 [facility] Pfizer COVID-19 Pfizer COVID-19 2021-01-11 [facility] 16:30:00 [facility] Pfizer COVID-19 Pfizer COVID-19 2021-01-11 [facility] 16:30:00 [facility] Pfizer COVID-19 Pfizer COVID-19 2021-01-11 [facility] 16:30:00 [facility] Pfizer COVID-19 Pfizer COVID-19 2021-01-11 [facility]pleted [facility] 16:30:00 [facility] Pfizer COVID-19 Pfizer COVID-19 2020-12-21 Completed [facility] 16:30:00 [facility] Pfizer COVID-19 Pfizer COVID-19 2020-12-21 Completed [facility] 16:30:00 [facility] Pfizer COVID-19 Pfizer COVID-19 2020-12-21 Com[facility] 16:30:00 [facility] Pfizer COVID-19 Pfizer COVID-19 2020-12-21 Completed [facility] 16:30:00 [facility] Pfizer COVID-19 Pfizer COVID-19 2020-12-21 Completed [facility] 16:30:00 [facility] Pfizer COVID-19 Pfizer COVID-19 2020-12-21 Completed [facility] 16:30:00 [facility] Pfizer COVID-19 Pfizer COVID-19 2020-12-21 Completed [facility] 16:30:00 [facility] Pfizer COVID-19 Pfizer COVID-19 2020-12-21 Completed [facility] 16:30:00 [facility] Pfizer COVID-19 Pfizer COVID-19 2020-12-21 Completed [facility] 16:30:00 [facility] Vital Signs Vital Name Observation Time Observation Value Comments Source height 2022-08-04 09:50:00 65 [in_i] [facility] weight 2022-08-04 09:50:00 222.6 [lb_av] Common [facility] temperature 2022-08-04 09:50:00 97.7 [degF] Common [facility] bmi 2022-08-04 09:50:00 37.04 kg/m2 [facility] oximetry 2022-08-04 09:50:00 97 % [facility] respiratory rate 2022-08-04 09:50:00 18 /min Comm [facility] blood pressure 2022-08-04 09:50:00 142 mm[Hg] Common [facility] - systolic [facility] blood pressure 2022-08-04 09:50:00 78 mm[Hg] Common [facility] - diastolic [facility] height 2022-06-27 10:10:00 65 [in_i] Common [facility] weight 2022-06-27 10:10:00 231 [lb_av] Common [facility] temperature 2022-06-27 10:10:00 97.9 [degF] Common [facility] bmi 2022-06-27 10:10:00 38.44 kg/m2 [facility] oximetry 2022-06-27 10:10:00 94 % Common [facility] respiratory rate 2022-06-27 10:10:00 18 /min Comm on [facility] blood pressure 2022-06-27 10:10:00 135 mm[Hg] [facility] - [facility] blood pressure 2022-06-27 10:10:00 76 mm[Hg] [facility] - diastolic [facility] height 2022-03-28 07:50:00 67 [in_i] Common [facility] weight 2022-03-28 07:50:00 224 [lb_av] Common [facility] temperature 2022-03-28 07:50:00 98 [degF] Common S pirit - [facility] bmi 2022-03-28 07:50:00 35.08 kg/m2 [facility] - [facility] blood pressure 2022-03-28 07:50:00 130 mm[Hg] [facility] - systolic [facility] blood pressure 2022-03-28 07:50:00 76 mm[Hg] [facility] - diastolic [facility] height 2021-11-29 08:00:00 67 [in_i] [facility] weight 2021-11-29 08:00:00 226 [lb_av] Common S pirit [facility] temperature 2021-11-29 08:00:00 97.9 [degF] [facility] bmi 2021-11-29 08:00:00 35.39 kg/m2 [facility] blood pressure 2021-11-29 08:00:00 132 mm[Hg] Common [facility] - systolic [facility] blood pressure 2021-11-29 08:00:00 76 mm[Hg] [facility] - diastolic [facility] height 2021-08-15 16:00:00 67 [in_i] [facility] weight 2021-08-15 16:00:00 223.0 [lb_av] [facility] temperature 2021-08-15 16:00:00 97.1 [degF] [facility] bmi 2021-08-15 16:00:00 34.92 kg/m2 [facility] oximetry 2021-08-15 16:00:00 96 % [facility] respiratory rate 2021-08-15 16:00:00 18 /min Comm on [facility] blood pressure 2021-08-15 16:00:00 138 mm[Hg] Common [facility] - systolic [facility] blood pressure 2021-08-15 16:00:00 70 mm[Hg] [facility] - [facility] height 2021-07-12 08:00:00 67 [in_i] [facility] weight 2021-07-12 08:00:00 232 [lb_av] Common [facility] temperature 2021-07-12 08:00:00 97.4 [degF] Common [facility] bmi 2021-07-12 08:00:00 36.33 kg/m2 [facility] blood pressure 2021-07-12 08:00:00 128 mm[Hg] Common [facility] - systolic [facility] blood pressure 2021-07-12 08:00:00 82 mm[Hg] Common [facility] - diastolic [facility] Procedures This patient has no known procedures. Encounters Start End Encounter Admission Attending Care Care Encounter Source Date/Time Date/Time Type Type Clinicians Facility Department ID 2021-11-20 Outpatient Rhoades, STLMLC STLMLC [id number] Common 14:04:32 Naresh [id number] [facility] 2021-11-20 Outpatient Rhoades, STLMLC STLMLC [id number] Common 13:50:27 Naresh [id number] [facility] 2021-11-20 Outpatient Rhoades, STLMLC STLMLC [id number] Common 13:41:58 Naresh [id number] [facility] 2021-11-20 Outpatient Rhoades, STLMLC STLMLC [id number] Common 13:09:12 Naresh [id number] [facility] 2021-11-20 Outpatient Rhoades, STLMLC STLMLC [id number] Common 13:07:29 Naresh [id number] [facility] 2021-11-20 Outpatient Rhoades, STLMLC STLMLC [id number] Common 13:05:13 Naresh [id number] [facility] 2021-11-20 Outpatient Rhoades, STLMLC STLMLC [id number] Common 13:04:48 Naresh [id number] [facility] 2021-11-20 Outpatient STLMLC STLMLC [id number] Common 12:44:19 [id number] [facility] 2021-11-20 Outpatient Joaquin, STLMLC STLMLC [id number] Common 12:12:37 Janet [id number] [facility] 2021-11-20 Outpatient Joaquin, STLMLC STLMLC [id number] Common 12:12:16 Janet [id number] [facility] 2021-11-20 Outpatient Joaquin, STLMLC STLMLC [id number] Common 12:11:47 Janet [id number] [facility] 2021-11-20 Outpatient Joaquin, STLMLC STLMLC [id number] Common 12:09:18 Janet [id number] [facility] 2021-11-20 Outpatient Joaquin, STLMLC STLMLC [id number] Common 12:07:34 Janet [id number] [facility] 2021-11-20 Outpatient Joaquin, STLMLC STLMLC [id number] Common 12:06:22 Janet [id number] [facility] 2021-11-20 Outpatient Joaquin, STLMLC STLMLC [id number] Common 12:02:18 Janet [id number] [facility] 2021-11-20 Outpatient Joaquin, STLMLC STLMLC [id number] Common 12:00:36 Janet [id number] [facility] 2022-08-04 2022-08-04 (HOSP F/U) STLMLC STLMLC [id number] Common 00:00:00 00:00:00 [facility] 2022-08-01 2022-08-01 (TEL) STLMLC STLMLC [id number] Co mmon 00:00:00 00:00:00 [facility] 2022-08-01 2022-08-01 (TEL) STLMLC STLMLC [id number] Co mmon 00:00:00 00:00:00 [facility] 2022-06-27 2022-06-27 (WELLNESS) STLMLC STLMLC [id number] Common 00:00:00 00:00:00 [facility] Spiri t Visit - [facility] 2022-03-28 2022-03-28 OFFICE STLMLC STLMLC [id number] Co mmon 00:00:00 00:00:00 VISIT [facility] ESTAB PT - CHI LEVEL 4 [facility] 2021-11-29 2021-11-29 OFFICE STLMLC STLMLC [id number] Co mmon 00:00:00 00:00:00 VISIT [facility] ESTAB PT - CHI LEVEL 4 [facility] 2021-11-11 2021-11-11 (TEL) STLMLC STLMLC [id number] Co mmon 00:00:00 00:00:00 [facility] 2021-08-15 2021-08-15 OFFICE STLMLC STLMLC [id number] Co mmon 00:00:00 00:00:00 VISIT EST Spir it PT LEVEL 3 [facility] 2021-08-15 2021-08-15 (TEL) STLMLC STLMLC [id number] Co mmon 00:00:00 00:00:00 [facility] 2021-07-19 2021-07-19 (TEL) STLMLC STLMLC [id number] Co mmon 00:00:00 00:00:00 [facility] 2021-07-12 2021-07-12 OFFICE STLMLC STLMLC [id number] Co mmon 00:00:00 00:00:00 VISIT [facility] PT - CHI LEVEL 4 [facility] 2021-06-18 2021-06-18 Outpatient STLMLC STLMLC [id number] Common 00:00:00 00:00:00 [facility] 2021-06-18 2021-06-18 Outpatient STLMLC STLMLC [id number] Common 00:00:00 00:00:00 [facility] 2021-06-14 2021-06-14 Outpatient STLMLC STLMLC [id number] Common 00:00:00 00:00:00 [facility] 2021-03-12 2021-03-12 Outpatient STLMLC STLMLC [id number] Common 00:00:00 00:00:00 [facility] 2021-01-17 2021-01-17 Outpatient STLMLC STLMLC [id number] Common 00:00:00 00:00:00 [facility] 2021-01-08 2021-01-08 Outpatient Nish CARRINGTON [facility] [place] [id number] Univers 14:00:00 14:00:00 PRICILLA [id number] [facility] 2021-01-08 2021-01-08 Outpatient R ZEB, [facility] [place] [id number] Univers 14:00:00 14:00:00 PRICILLA [facility] 2020-12-18 2020-12-18 Outpatient Nish CARRINGTON [facility] [place] [id number] Univers 16:30:00 16:30:00 PRICILLA [facility] 2020-12-18 2020-12-18 Outpatient Nish CARRINGTON [facility] [place] [id number] Univers 16:30:00 16:30:00 PRICILLA [id number] [facility] 2020-10-05 2020-10-05 Outpatient STLMLC STLMLC [id number] Common 00:00:00 00:00:00 [facility] 2020-09-14 2020-09-14 Outpatient STLMLC STLMLC [id number] Common 00:00:00 00:00:00 [facility] 2020-08-31 2020-08-31 Outpatient STLMLC STLMLC [id number] Common 00:00:00 00:00:00 [facility] 2020-08-28 2020-08-28 Outpatient STLMLC STLMLC [id number] Common 00:00:00 00:00:00 [facility] 2020-08-24 2020-08-24 Outpatient STLMLC STLMLC [id number] Common 00:00:00 00:00:00 [facility] Results This patient has no known results.
[2022-09-06] MEDS ORDERED: ONDANSETRON 4 MG/2 ML VIAL ONE (22:17)
[2022-09-06] MEDS ORDERED: MORPHINE 4 MG/ML SYR ONE (22:17)
[2022-09-06 22:29] LABS: Absolute Lymphocytes (CBC) 2.2 K/uL (0.7-4.9); Hematocrit 39.8 % (39.6-49.0); Lymphocytes % 31.5 % (15.3-44.8); MCV 87.6 fL (80-100); MPV 9.6 fL (7.6-11.3); RBC Red Blood Cell Count 4.55 M/uL (4.33-5.43)
[2022-09-06 22:46] LABS: Albumin 3.5 g/dL (3.4-5.0); Bilirubin Total 0.2 mg/dL (0.2-1.0); Protein, Total 7.7 g/dL (6.4-8.2)
[2022-09-06 22:49] LABS: Potassium 3.4 mmol/L (3.5-5.1)
[2022-09-06 23:06] LABS: Urine Blood Negative (Negative); Urine Glucose Negative (Negative); Urine Protein 2+ (Negative); Urine Specific Gravity 1.025 (1.005-1.030)
[2022-09-06 23:20] LABS: Urine Bacteria <20 /HPF (<20); Urine Mucus Slight /HPF (None Seen); Urine RBC <5 /HPF (None Seen)
--- NOTE | 2022-09-06 23:32 | RAD REPORT ---
EXAM DESCRIPTION: CTAbdomen Pelvis W Contrast - 09/06/2022 11:22 pm CLINICAL HISTORY: RLQ abdominal pain. S/P hernia repair 08/13 COMPARISON: <Comparisons> TECHNIQUE: CT of the abdomen and pelvis was performed. All CT scans are performed using dose optimization technique as appropriate and may include automated exposure control or mA/KV adjustment according to patient size. FINDINGS: Lower chest: No acute abnormality. Liver: No acute abnormality or suspicious lesions. Biliary: No biliary ductal dilatation. Stomach: No significant focal abnormality. Duodenum: No significant focal abnormality. Pancreas: No significant abnormality. Spleen: No significant abnormality. Adrenal: No suspicious lesions. Kidney/ureter: No hydronephrosis. No renal calculi. Too small to characterize and/or benign appearing renal lesions are noted. Retroperitoneum: No retroperitoneal adenopathy. Vascular: No aneurysm. Bowel: Diverticulosis. No evidence of acute diverticulitis.. Peritoneum: No ascites or free air. Small fat containing umbilical hernia. Bladder: Irregular bladder wall thickening. Left-sided bladder diverticulum. Reproductive: No adnexal masses. Bones: No acute fracture. Multilevel degenerative changes are present in the spine. Other: n/a IMPRESSION: No acute intra-abdominal or pelvic finding. Normal appendix. Irregular bladder wall thickening and a bladder diverticulum could be secondary to chronic bladder ou tlet obstruction.
--- NOTE | 2022-09-06 23:46 | EDPHYS ---
Physician Documentation [facility] Name: Cristopher Black Age: 61 yrs Sex: Male : 1960 Arrival Date: 09/06/2022 Time: 20:58 Bed 8 Private MD: ED Physician Duane Gamble HPI: 09/06 22:10 This 61 yrs old Black Male presents to ER via Ambulatory with complaints of Abdominal ms3 Pain. 22:10 The patient presents with abdominal pain right lower quadrant. Onset: The ms3 symptoms/episode began/occurred 2 day(s) ago. The symptoms do not radiate. Associated signs and symptoms: Pertinent negatives: nausea, vomiting, and diarrhea. The symptoms are described as achy. Modifying factors: The symptoms are alleviated by nothing, the symptoms are aggravated by nothing. Severity of pain: At its worst the pain was severe in the emergency department the pain is a 9 / 10. Historical: - Allergies: 21:14 No Known Allergies; bb - Home Meds: 21:14 Albuterol Inhl [Active]; amlodipine oral [Active]; Hydroxyzine Oral [Active]; bb lisinopril-hydrochlorothiazide Oral 1 tab [Active]; meloxicam Oral [Active]; Omeprazole Oral [Active]; Symbicort inhalation [Active]; Trazodone Oral [Active]; - PMHx: 21:14 Asthma; Hepatitis; Hypertension; osteoarthritis; bb - PSHx: 21:14 hernia; shoulder; bb - Immunization history:: Pfizer x 4. - Social history:: Smoking status: Patient denies any tobacco usage or history of. ROS: 22:10 Constitutional: Negative for fever, and chills. Neck: Negative for injury, pain, and ms3 swelling, Cardiovascular: Negative for chest pain, and palpitations. Respiratory: Negative for shortness of breath, cough, wheezing, and pleuritic chest pain. 22:10 MS/Extremity: Negative for injury and deformity, Skin: Negative for injury, rash, and discoloration, Neuro: Negative for headache, weakness, numbness, tingling. Psych: Negative for depression, anxiety, suicide ideation, homicidal ideation, and hallucinations. 22:10 Abdomen/GI: Positive for abdominal pain. 22:10 All other systems are negative. Exam: 22:10 Constitutional: This is a well developed, well nourished patient who is awake, alert, ms3 and in no acute distress. Head/Face: Normocephalic, atraumatic. Neck: Trachea midline, no cervical lymphadenopathy. Supple, full range of motion without nuchal rigidity, or vertebral point tenderness. No Meningismus. Chest/axilla: Normal chest wall appearance and motion. Nontender with no deformity. Cardiovascular: Regular rate and rhythm with a normal S1 and S2. No gallops, murmurs, or rubs. Normal PMI, no JVD. No pulse deficits. Respiratory: Lungs have equal breath sounds bilaterally, clear to auscultation and percussion. No rales, rhonchi or wheezes noted. No increased work of breathing, no retractions or nasal flaring. Skin: Warm, dry with normal turgor. Normal color with no rashes, no lesions, and no evidence of cellulitis. MS/ Extremity: Pulses equal, no cyanosis. Neurovascular intact. Full, normal range of motion. Psych: Awake, alert, with orientation to person, place and time. Behavior, mood, and affect are within normal limits. 22:10 Abdomen/GI: Inspection: abdomen appears normal, Bowel sounds: normal, Palpation: moderate abdominal tenderness, in the right lower quadrant. Vital Signs: 21:13 BP 142 / 82; Pulse 62; Resp 16 S; Temp 98(O); Pulse Ox 96% on R/A; Weight 99.34 kg (R); bb Height 5 ft. 7 in. (170.18 cm) (R); Pain 8/10; 22:13 BP 149 / 82; Pulse 58; Resp 16; Pulse Ox 100% on R/A; kl 23:24 BP 118 / 61; Pulse 55; Resp 17; Pulse Ox 98% on R/A; ll3 23:50 BP 120 / 75; Pulse 53; Resp 18; Pulse Ox 100% on R/A; kl 21:13 Body Mass Index 34.30 (99.34 kg, 170.18 cm) bb MDM: 22:07 Patient medically screened. ms3 23:45 Data reviewed: vital signs, nurses notes, lab test result(s), radiologic studies, and ms3 as a result, I will discharge patient. Counseling: I had a detailed discussion with the patient and/or guardian regarding: the historical points, exam findings, and any diagnostic results supporting the discharge/admit diagnosis, lab results, radiology results, the need for outpatient follow up, to return to the emergency department if symptoms worsen or persist or if there are any questions or concerns that arise at home. ED course: Discussed labs and radiology results with patient and his . Patient to follow-up with his primary care physician in 2 to 3 days. Patient understands and agrees with plan. All questions were answered. Return precautions discussed include worsening symptoms, or any other concerns. On reevaluation patient improved, alert and oriented x4, no apparent distress, nontoxic, ambulatory in the emergency department with steady gait. 09/06 22:15 Order name: CBC with Diff; Complete Time: 23:36 ms3 09/06 22:15 Order name: CMP; Complete Time: 23:36 ms3 09/06 22:15 Order name: Lipase; Complete Time: 23:36 ms3 09/06 22:15 Order name: Urine Microscopic Only; Complete Time: 23:36 ms3 09/06 22:15 Order name: CT Abd/Pelvis - IV Contrast Only; Complete Time: 23:36 ms3 09/06 23:07 Order name: Urine Dipstick-Ancillary; Complete Time: 23:36 EDMS 09/06 22:15 Order name: IV Saline Lock; Complete Time: 22:20 ms3 09/06 22:15 Order name: Labs collected and sent; Complete Time: 22:20 ms3 09/06 22:15 Order name: Urine Dipstick-Ancillary (obtain specimen); Complete Time: 23:23 ms3 Administered Medications: 22:15 Drug: morphine 4 mg Route: IVP; Infused Over: 4 mins; Site: right antecubital; kl 23:51 Follow up: Response: No adverse reaction; Pain is decreased ll3 22:20 Drug: Zofran (Ondansetron) 4 mg Route: IVP; Site: right antecubital; kl 23:51 Follow up: Response: No adverse reaction ll3 Disposition Summary: 09/06/22 23:45 Discharge Ordered Location: Home ms3 Condition: Stable ms3 Diagnosis - Lower abdominal pain, unspecified ms3 - Bladder diverticulum ms3 Followup: ms3 - With: Private Physician - When: 2 - 3 days - Reason: Recheck today's complaints Followup: ms3 - With: David Francis MD - When: 2 - 3 days - Reason: Recheck today's complaints Discharge Instructions: - Discharge Summary Sheet ms3 - Abdominal Pain, Adult ms3 Forms: - Medication Reconciliation Form ms3 - Thank You Letter ms3 - Antibiotic Education ms3 - Prescription Opioid Use ms3 Prescriptions: - dicyclomine 10 mg Oral Capsule - take 1 capsule by ORAL route 3 times per day; 20 capsule; Refills: 0, Product ms3 Selection Permitted Signatures: Dispatcher [employer] Gerri Dumont, RN RN April Negrete RN RN Duane Mendosa DO DO ms3 Nima Chavez RN ll3
--- NOTE | 2022-09-06 23:46 | ER ---
Nurse's Notes [facility] Name: Cristopher Larson Age: 61 yrs Sex: Male : 1960 Arrival Date: 09/06/2022 Time: 20:58 Bed 8 Private MD: Diagnosis: Lower abdominal pain, unspecified;Bladder diverticulum Presentation: 09/06 21:13 Chief complaint: Patient states: he had hernia repair 3 weeks ago and for the last two bb days he has had constant RLQ pain denies vomiting or diarrhea the pain is 8/10. Coronavirus screen: At this time, the client does not indicate any symptoms associated with coronavirus-19. Ebola Screen: No symptoms or risks identified at this time. Initial Sepsis Screen: Does the patient meet any 2 criteria? No. Patient's initial sepsis screen is negative. Does the patient have a suspected source of infection? No. Patient's initial sepsis screen is negative. Risk Assessment: Do you want to hurt yourself or someone else? Patient reports no desire to harm self or others. Onset of symptoms was September 04, 2022. 21:13 Method Of Arrival: Ambulatory bb 21:13 Acuity: MARTY 3 bb Triage Assessment: 21:14 General: Appears uncomfortable, Behavior is calm, cooperative. Pain: Complains of pain bb in abdomen Pain currently is 8 out of 10 on a pain scale. Neuro: Level of Consciousness is awake, alert, obeys commands, Oriented to person, place, time, situation. Cardiovascular: Capillary refill < 3 seconds Patient's skin is warm and dry. Respiratory: Respiratory effort is even, unlabored, Respiratory pattern is regular. GI: Abdomen is round Reports lower abdominal pain, Patient currently denies diarrhea, vomiting. Derm: Skin is dry, Skin is normal, Skin temperature is warm. Musculoskeletal: Circulation, motion, and sensation intact. Historical: - Allergies: 21:14 No Known Allergies; bb - Home Meds: 21:14 Albuterol Inhl [Active]; amlodipine oral [Active]; Hydroxyzine Oral [Active]; bb lisinopril-hydrochlorothiazide Oral 1 tab [Active]; meloxicam Oral [Active]; Omeprazole Oral [Active]; Symbicort inhalation [Active]; Trazodone Oral [Active]; - PMHx: 21:14 Asthma; Hepatitis; Hypertension; osteoarthritis; bb - PSHx: 21:14 hernia; shoulder; bb - Immunization history:: Pfizer x 4. - Social history:: Smoking status: Patient denies any tobacco usage or history of. Screenin:12 Abuse screen: Denies threats or abuse. Nutritional screening: No deficits noted. kl Tuberculosis screening: No symptoms or risk factors identified. Fall Risk None identified. Assessment: 22:12 General: Appears uncomfortable, well groomed, well developed, Behavior is calm, kl cooperative. Pain: Complains of pain in abdomen Pain currently is 7 out of 10 on a pain scale. Neuro: No deficits noted. Cardiovascular: No deficits noted. Respiratory: No deficits noted. GI: Bowel sounds present X 4 quads. Abd is soft Abdomen is tender to palpation. : No deficits noted. No signs and/or symptoms were reported regarding the genitourinary system. EENT: No deficits noted. No signs and/or symptoms were reported regarding the EENT system. Derm: No deficits noted. No signs and/or symptoms reported regarding the dermatologic system. Musculoskeletal: No deficits noted. No signs and/or symptoms reported regarding the musculoskeletal system. 23:27 Reassessment: States "I think the pain medicine is starting to wear off", c/o abdominal ll3 pain 9/10, ERP notified. Vital Signs: 21:13 BP 142 / 82; Pulse 62; Resp 16 S; Temp 98(O); Pulse Ox 96% on R/A; Weight 99.34 kg (R); bb Height 5 ft. 7 in. (170.18 cm) (R); Pain 8/10; 22:13 BP 149 / 82; Pulse 58; Resp 16; Pulse Ox 100% on R/A; kl 23:24 BP 118 / 61; Pulse 55; Resp 17; Pulse Ox 98% on R/A; ll3 23:50 BP 120 / 75; Pulse 53; Resp 18; Pulse Ox 100% on R/A; kl 21:13 Body Mass Index 34.30 (99.34 kg, 170.18 cm) bb ED Course: 20:58 Patient arrived in ED. as 21:14 Triage completed. bb 21:14 Arm band placed on Patient placed in waiting room, Patient notified of wait time. bb 21:15 Duane Gamble DO is Attending Physician. ms3 22:12 Inserted saline lock: 20 gauge in right antecubital area, using aseptic technique. kl 22:20 CBC with Diff Sent. kl 22:20 CMP Sent. kl 22:20 Lipase Sent. kl 23:07 Urine Microscopic Only Sent. kl 23:24 CT Abd/Pelvis - IV Contrast Only In Process Unspecified. EDMS 23:45 David Francis MD is Referral Physician. ms3 23:50 Patient has correct armband on for positive identification. Placed in gown. Bed in low ll3 position. Call light in reach. Side rails up X 1. 23:50 No provider procedures requiring assistance completed. IV discontinued, intact, kl bleeding controlled, No redness/swelling at site. Pressure dressing applied. 23:50 No provider procedures requiring assistance completed. ll3 Administered Medications: 22:15 Drug: morphine 4 mg Route: IVP; Infused Over: 4 mins; Site: right antecubital; kl 23:51 Follow up: Response: No adverse reaction; Pain is decreased ll3 22:20 Drug: Zofran (Ondansetron) 4 mg Route: IVP; Site: right antecubital; kl 23:51 Follow up: Response: No adverse reaction ll3 Medication: 23:50 VIS not applicable for this client. ll3 Outcome: 23:45 Discharge ordered by . ms3 23:50 Discharged to home ambulatory, with family. ll3 23:50 Condition: stable 23:50 Discharge instructions given to patient, family, Instructed on discharge instructions, follow up and referral plans. medication usage, Demonstrated understanding of instructions, follow-up care, medications, Prescriptions given X 1. 23:52 Patient left the ED. ll3 Signatures: Dispatcher [employer] EDMS Gerri Bar RN [place] Brenda, RN RN bb Sims, Marcus, DO DO ms3 Nima Chavez RN RN ll3
[2022-09-06 23:59] VITALS: TEMP 98
[2022-09-07 00:14] VITALS: BP 120/75; O2SAT 100
== END 2022-09-06 23:52 | disposition home or self-care (01) ==
LOC: ER 20:50
DX: N32.3 Diverticulum of bladder (principal); I10 Essential (primary) hypertension
CPT/HCPCS: 85025; 36415; 83690; 80053; 74177; 96375; 96374; 99284; Q9967; J2405; 81003; 81015

== ENCOUNTER 2022-11-04 19:16 | Emergency (ER) | payer BC ==
--- OUTSIDE RECORDS SUMMARY | 2022-11-04 19:20 | XMS REPORT | Continuity of Care Document ---
:1960 Author Organization [facility] t Address [address] [place] [address] Care Team Providers Name Role Phone Naresh Rhoades Attending Clinician Unavailable Janet Nñuez Attending Clinician Unavailable PRICILLA CARRINGTON Attending Clinician Unavailable Payers Payer Name Policy Type Policy Number Effective Date Expiration Date S ource [employer] 6 [id number] 2020 [facility] Blue Shield of 00:00:00 - [facility] [id number] 2014 00:00:00 Problems Condition Condition Condition Status Onset Resolution Last Treating Co mments Source Name Details Category Date Date Treatment Clinician Date Calcaneal Heel spur, Problem Co mmon spur left [facility] [id number] Autoimmune Problem Com mon thyroiditi Spirit s - [facility] [id number] Other Problem Common specified Spirit hypothyroi - [facility] dism [facility] [id number] Atopic Problem Common dermatitis Spirit , - [facility] unspecifie [facility] [id number] Body mass Problem Com mon index Spirit [BMI] - [facility] 37.0-37.9, [facility] [id number] Morbid Problem Commo n 9104 (severe) Spirit obesity - [facility] due to [facility] [id number] Bladder Problem Commo n wall [facility] thickening - [facility] [id number] Bladder Problem Commo n diverticul [facility] Benign BPH Problem Common prostatic (benign Spirit hyperplasi prostatic - C HI a hyperplasi St a) [facility] Insomnia Insomnia Problem Commo n [facility] Gastroesop GERD Problem Commo n hageal (gastroeso Spirit reflux [facility] disease reflux St disease) [facility] Polyarthra Polyarthra Problem C ommon lgia lgia [facility] Obese BMI Problem Common class I 33.0-33.9, Spiri t adult [facility] Benign Benign Problem Common essential essential Spir it hypertensi hypertensi - [facility] on on [facility] Asthma Asthma Problem Common [facility] Obesity Other Problem Common obesity [facility] Chronic Hep C w/o Problem Commo n hepatitis coma, Spirit C chronic [facility] Hyperlipid HLD Problem Commo n aemia (hyperlipi Spirit demia) [facility] Allergies, Adverse Reactions, Alerts Allergy Allergy Status Severity Reaction(s) Onset Inactive Treating Comm ents Source Name Type Date Date Clinician NO KNOWN Drug Active Univers ALLERGIE Class ity of [facility] Social History Social Habit Start Date Stop Date Quantity Comments Source History of Tobacco Use Co mmon [facility] Sex Assigned At Com [facility] Smoking Status Start Date Stop Date Source Former Smoker 2022-09-20 00:00:00 2022-09-20 00:00:00 Common S [facility] Medications Ordered Filled Start Stop Current Ordering Indication Dosage Frequency Signature Comments Components Source Medication Medication Date Date Medication? Clinician (SIG) Name Name Benzonatate Benzonatate 2021-10 No 1{capsu Benzonatat 200 MG 200 MG 11-24 le_as_n e 200 MG 00:00: 00:00 eeded} 00 :00 Cefdinir Cefdinir 2021-10 Cefdinir 300 MG 300 MG 11-24 300 MG 00:00: 00:00 00 :00 methylPREDN methylPREDN 2021-10 QD methylPRED ISolone 4 ISolone 4 11-24 NISolone 4 MG MG 00:00: 00:00 MG 00 :00 Triamcinolo Triamcinolo 0 No Triamcinol ne ne 06-27 one Acetonide Acetonide 00:00: Acetonide 0.1 % 0.1 % 00 0.1 % Triamcinolo Triamcinolo 0 No Triamcinol ne ne 06-27 one Acetonide Acetonide 00:00: Acetonide 0.1 % 0.1 % 00 0.1 % Triamcinolo Triamcinolo 0 No Triamcinol ne ne 06-27 one Acetonide Acetonide 00:00: Acetonide 0.1 % 0.1 % 00 0.1 % Trelegy Trelegy 2021- No 1{puff} QD Trelegy Ellipta Ellipta 06-27 11-30 Ellipta 200-62.5-25 200-62.5-25 00:00: 00:00 200-62.5-2 MCG/INH MCG/INH 00 :00 5 MCG/INH Trelegy Trelegy 0 2021- No 1{puff} QD Trelegy Ellipta Ellipta 06-27 11-30 Ellipta 200-62.5-25 200-62.5-25 00:00: 00:00 200-62.5-2 MCG/INH MCG/INH 00 :00 5 MCG/INH Trelegy Trelegy 2021-0 2021- No 1{puff} QD Trelegy Ellipta Ellipta 06-27 11-30 Ellipta 200-62.5-25 200-62.5-25 00:00: 00:00 200-62.5-2 MCG/INH MCG/INH 00 :00 5 MCG/INH Levothyroxi Levothyroxi 2021-0 No QD Levothyrox ne Sodium ne Sodium 03-28 ine Sodium 50 MCG 50 MCG 00:00: 50 MCG 00 methylPREDN methylPREDN 2020-10- No QD methylPRED ISolone 4 ISolone 4 08-21 NISolone 4 MG MG 00:00: 00:00 MG 00 :00 methylPREDN methylPREDN 2020-10- No QD methylPRED ISolone 4 ISolone 4 08-21 NISolone 4 MG MG 00:00: 00:00 MG [...] Advair HFA No 2{puffs BID Advair HFA 230- 230-21 } 230-21 MCG/ACT MCG/ACT MCG/ACT hydrOXYzine [...] Sodium 50 MCG 50 MCG 50 MCG Lisinopril- Lisinopril- No Lisinopril hydroCHLORO hydroCHLORO -hydroCHLO thiazide thiazide ROthiazide 20-25 MG 20-25 MG 20-25 MG Trelegy Trelegy No 1{puff} QD Trelegy Ellipta Ellipta Ellipta 200-62.5-25 200-62.5-25 200-62.5-2 MCG/INH MCG/INH 5 MCG/INH amLODIPine amLODIPine No amLODIPine Besylate 10 Besylate 10 Besylate MG MG 10 MG Albuterol Albuterol No Albuterol Sulfate HFA Sulfate HFA Sulfate 108 (90 108 (90 HFA 108 Base) Base) (90 Base) MCG/ACT MCG/ACT MCG/ACT HYDROcodone HYDROcodone No 1{table QID HYDROcodon -Acetaminop -Acetaminop t_as_ne e-Acetamin hen 5-325 hen 5-325 eded} ophen MG MG 5-325 MG Docusate Docusate No 1{capsu QD Docusate Sodium 100 Sodium 100 le_as_n Sodium 100 MG MG eeded} MG traZODone traZODone No traZODone HCl 100 MG HCl 100 MG HCl 100 MG Albuterol Albuterol No 2{puff_ TID Albuterol Sulfate 108 Sulfate 108 as_need Sulfate (90 Base) (90 Base) ed} 108 (90 MCG/ACT MCG/ACT Base) MCG/ACT Advair HFA Advair HFA No 2{puffs BID Advair HFA 230-21 230-21 } 230-21 MCG/ACT MCG/ACT MCG/ACT Meloxicam Meloxicam No Meloxicam 7.5 MG 7.5 MG 7.5 MG Omeprazole Omeprazole No Omeprazole 40 MG 40 MG 40 MG Symbicort Symbicort No Symbicort 160-4.5 160-4.5 160-4.5 MCG/ACT MCG/ACT MCG/ACT Meloxicam Meloxicam No Meloxicam 7.5 MG 7.5 MG 7.5 MG Cefdinir Cefdinir No Cefdinir 300 MG 300 MG 300 MG Triamcinolo Triamcinolo No Triamcinol ne ne one Acetonide Acetonide Acetonide 0.1 % 0.1 % 0.1 % Levothyroxi Levothyroxi No QD Levothyrox ne Sodium ne Sodium ine Sodium 50 MCG 50 MCG 50 MCG hydrOXYzine hydrOXYzine No hydrOXYzin HCl 50 MG HCl 50 MG e HCl 50 MG Omeprazole Omeprazole No Omeprazole 40 MG 40 MG 40 MG traZODone traZODone No traZODone HCl 100 MG HCl 100 MG HCl 100 MG Lisinopril- Lisinopril- No Lisinopril hydroCHLORO hydroCHLORO -hydroCHLO thiazide thiazide ROthiazide 20-25 MG 20-25 MG 20-25 MG Trelegy Trelegy No 1{puff} QD Trelegy Ellipta Ellipta Ellipta 200-62.5-25 200-62.5-25 200-62.5-2 MCG/INH MCG/INH 5 MCG/INH amLODIPine amLODIPine No amLODIPine Besylate 10 Besylate 10 Besylate MG MG 10 MG Albuterol Albuterol No Albuterol Sulfate HFA Sulfate HFA Sulfate 108 (90 108 (90 HFA 108 Base) Base) (90 Base) MCG/ACT MCG/ACT MCG/ACT HYDROcodone HYDROcodone No 1{table QID HYDROcodon -Acetaminop -Acetaminop t_as_ne e-Acetamin hen 5-325 hen 5-325 eded} ophen MG MG 5-325 MG Docusate Docusate No 1{capsu QD Docusate Sodium 100 Sodium 100 le_as_n Sodium 100 MG MG eeded} MG traZODone traZODone No traZODone HCl 100 MG HCl 100 MG HCl 100 MG Albuterol Albuterol No 2{puff_ TID Albuterol Sulfate 108 Sulfate 108 as_need Sulfate (90 Base) (90 Base) ed} 108 (90 MCG/ACT MCG/ACT Base) MCG/ACT Advair HFA Advair HFA No 2{puffs BID Advair HFA 230-21 230-21 } 230-21 MCG/ACT MCG/ACT MCG/ACT Meloxicam Meloxicam No Meloxicam 7.5 MG 7.5 MG 7.5 MG Omeprazole Omeprazole No Omeprazole 40 MG 40 MG 40 MG Symbicort Symbicort No Symbicort 160-4.5 160-4.5 160-4.5 MCG/ACT MCG/ACT MCG/ACT Meloxicam Meloxicam No Meloxicam 7.5 MG 7.5 MG 7.5 MG Cefdinir Cefdinir No Cefdinir 300 MG 300 MG 300 MG Triamcinolo Triamcinolo No Triamcinol ne ne one Acetonide Acetonide Acetonide 0.1 % 0.1 % 0.1 % Levothyroxi Levothyroxi No QD Levothyrox ne Sodium ne Sodium ine Sodium 50 MCG 50 MCG 50 MCG hydrOXYzine hydrOXYzine No hydrOXYzin HCl 50 MG HCl 50 MG e HCl 50 MG Omeprazole Omeprazole No Omeprazole 40 MG 40 MG 40 MG traZODone traZODone No traZODone HCl 100 MG HCl 100 MG HCl 100 MG traZODone traZODone No traZODone HCl 100 MG HCl 100 MG HCl 100 MG traZODone traZODone No traZODone HCl 100 MG HCl 100 MG HCl 100 MG Advair HFA Advair HFA No 2{puffs BID Advair HFA 230-21 230-21 } 230-21 MCG/ACT MCG/ACT MCG/ACT Levothyroxi Levothyroxi No QD Levothyrox ne Sodium ne Sodium ine Sodium 50 MCG 50 MCG 50 MCG Albuterol Albuterol No Albuterol Sulfate HFA Sulfate HFA Sulfate 108 (90 108 (90 HFA 108 Base) Base) (90 Base) MCG/ACT MCG/ACT MCG/ACT amLODIPine amLODIPine No amLODIPine Besylate 10 Besylate 10 Besylate MG MG 10 MG Cefdinir Cefdinir No Cefdinir 300 MG 300 MG 300 MG Omeprazole Omeprazole No Omeprazole 40 MG 40 MG 40 MG HYDROcodone HYDROcodone No 1{table QID HYDROcodon -Acetaminop -Acetaminop t_as_ne e-Acetamin hen 5-325 hen 5-325 eded} ophen MG MG 5-325 MG Lisinopril- Lisinopril- No Lisinopril hydroCHLORO hydroCHLORO -hydroCHLO thiazide thiazide ROthiazide 20-25 MG 20-25 MG 20-25 MG Docusate Docusate No 1{capsu QD Docusate Sodium 100 Sodium 100 le_as_n Sodium 100 MG MG eeded} MG hydrOXYzine hydrOXYzine No hydrOXYzin HCl 50 MG HCl 50 MG e HCl 50 MG Omeprazole Omeprazole No Omeprazole 40 MG 40 MG 40 MG Meloxicam Meloxicam No Meloxicam 7.5 MG 7.5 MG 7.5 MG Triamcinolo Triamcinolo No Triamcinol ne ne one Acetonide Acetonide Acetonide 0.1 % 0.1 % 0.1 % Albuterol Albuterol No 2{puff_ TID Albuterol Sulfate 108 Sulfate 108 as_need Sulfate (90 Base) (90 Base) ed} 108 (90 MCG/ACT MCG/ACT Base) MCG/ACT Trelegy Trelegy No 1{puff} QD Trelegy Ellipta Ellipta Ellipta 200-62.5-25 200-62.5-25 200-62.5-2 MCG/INH MCG/INH 5 MCG/INH Symbicort Symbicort No Symbicort 160-4.5 160-4.5 160-4.5 MCG/ACT MCG/ACT MCG/ACT Meloxicam Meloxicam No Meloxicam 7.5 MG 7.5 MG 7.5 MG Omeprazole Omeprazole No Omeprazole 40 MG 40 MG 40 MG Triamcinolo Triamcinolo No Triamcinol ne ne one Acetonide Acetonide Acetonide 0.1 % 0.1 % 0.1 % Trelegy Trelegy No 1{puff} QD Trelegy Ellipta Ellipta Ellipta 200-62.5-25 200-62.5-25 200-62.5-2 MCG/INH MCG/INH 5 MCG/INH Levothyroxi Levothyroxi No QD Levothyrox ne Sodium ne Sodium ine Sodium 50 MCG 50 MCG 50 MCG Advair HFA Advair HFA No 2{puffs BID Advair HFA 230-21 230-21 } 230-21 MCG/ACT MCG/ACT MCG/ACT amLODIPine amLODIPine No 1{table QD amLODIPine Besylate 5 Besylate 5 t} Besylate 5 MG MG MG traZODone traZODone No traZODone HCl 100 MG HCl 100 MG HCl 100 MG Albuterol Albuterol No 2{puff_ TID Albuterol Sulfate 108 Sulfate 108 as_need Sulfate (90 Base) (90 Base) ed} 108 (90 MCG/ACT MCG/ACT Base) MCG/ACT hydrOXYzine hydrOXYzine No hydrOXYzin HCl 50 MG HCl 50 MG e HCl 50 MG Lisinopril- Lisinopril- No 1{table QD Lisinopril hydroCHLORO hydroCHLORO t} -hydroCHLO thiazide thiazide ROthiazide 20-25 MG 20-25 MG 20-25 MG Meloxicam Meloxicam No Meloxicam 7.5 MG 7.5 MG 7.5 MG Omeprazole Omeprazole No Omeprazole 40 MG 40 MG 40 MG Triamcinolo Triamcinolo No Triamcinol ne ne one Acetonide Acetonide Acetonide 0.1 % 0.1 % 0.1 % Trelegy Trelegy No Trelegy Ellipta Ellipta Ellipta 200-62.5-25 200-62.5-25 200-62.5-2 MCG/ACT MCG/ACT 5 MCG/ACT Levothyroxi Levothyroxi No QD Levothyrox ne Sodium ne Sodium ine Sodium 50 MCG 50 MCG 50 MCG Advair HFA Advair HFA No 2{puffs BID Advair HFA 230-21 230-21 } 230-21 MCG/ACT MCG/ACT MCG/ACT amLODIPine amLODIPine No 1{table QD amLODIPine Besylate 5 Besylate 5 t} Besylate 5 MG MG MG traZODone traZODone No traZODone HCl 100 MG HCl 100 MG HCl 100 MG Albuterol Albuterol No 2{puff_ TID Albuterol Sulfate 108 Sulfate 108 as_need Sulfate (90 Base) (90 Base) ed} 108 (90 MCG/ACT MCG/ACT Base) MCG/ACT hydrOXYzine hydrOXYzine No hydrOXYzin HCl 50 MG HCl 50 MG e HCl 50 MG Lisinopril- Lisinopril- No 1{table QD Lisinopril hydroCHLORO hydroCHLORO t} -hydroCHLO thiazide thiazide ROthiazide 20-25 MG 20-25 MG 20-25 MG Albuterol Albuterol No 2{puff_ TID Albuterol [...] Status Commen ts Source Name Name [facility] 2021-08-15 Completed [facility] 16:24[facility]:24[facility] 16:24:00 - [facility] 2021-08-15 Completed [facility] 16:24:00 - [facility] 2021-08-15 Completed [facility] 16:24:00 - [facility] 2021-08-15 Completed [facility] 16:24:00 - [facility] 2021-08-15 Completed [facility] 16:24:00 [facility] A[facility]uria A[facility] 2021-08-15 Completed [facility] 16:24:00 [facility] Afluria A[facility]uria 2021-08-15 Completed [facility] 16:24:00 - [facility] 2021-08-15 Completed [facility] 16:24:00 - [facility] A[facility]uria [facility] 2021-08-15 Completed [facility] 16:24:00 - [facility] 2021-08-15 Completed [facility] 16:24:00 [facility] A[facility]uria A[facility]uria 2021-08-15 Completed [facility] 16:24:00 - [facility] 2021-08-15 Completed [facility] 16:24:00 [facility] Pfizer COVID-19 Pfizer COVID-19 2021-06-14 Completed Comm on [facility] Vaccine Vaccine 16:31:00 [facility] Pfizer COVID-19 Pfizer COVID-19 2021-06-14 Completed [facility] Vaccine Vaccine 16:31:00 [facility] Pfizer COVID-19 Pfizer COVID-19 2021-06-14 Completed [facility] Vaccine Vaccine 16:31:00 [facility] Pfizer COVID-19 Pfizer COVID-19 2021-06-14 Completed [facility] Vaccine Vaccine 16:31:00 [facility] Pfizer COVID-19 Pfizer COVID-19 2021-06-14 Completed [facility] Vaccine Vaccine 16:31:00 [facility] Pfizer COVID-19 Pfizer COVID-19 2021-06-14 Completed [facility] Vaccine Vaccine 16:31:00 [facility] Pfizer COVID-19 Pfizer COVID-19 2021-06-14 Completed [facility] Vaccine Vaccine 16:31:00 [facility] Pfizer COVID-19 Pfizer COVID-19 2021-06-14 Completed [facility] Vaccine Vaccine 16:31:00 [facility] Pfizer COVID-19 Pfizer COVID-19 2021-06-14 Completed [facility] Vaccine Vaccine 16:31:00 - [facility] Pfizer COVID-19 Pfizer COVID-19 2021-06-14 Completed [facility] Vaccine Vaccine 16:31:00 - [facility] Pfizer COVID-19 Pfizer COVID-19 2021-06-14 Completed [facility] Vaccine Vaccine 16:31:00 [facility] Pfizer COVID-19 Pfizer COVID-19 2021-06-14 Completed [facility] Vaccine Vaccine 16:31:00 - [facility] Pfizer COVID-19 Pfizer COVID-19 2021-06-14 Completed [facility] Vaccine Vaccine 16:31:00 [facility] Pfizer COVID-19 Pfizer COVID-19 2021-06-14 Completed [facility] Vaccine Vaccine 16:31:00 [facility] Pfizer COVID-19 Pfizer COVID-19 2021-01-11 Completed [facility] Vaccine Vaccine 16:30:00 [facility] Pfizer COVID-19 Pfizer COVID-19 2021-01-11 Completed [facility] Vaccine Vaccine 16:30:00 [facility] Pfizer COVID-19 Pfizer COVID-19 2021-01-11 Completed [facility] Vaccine Vaccine 16:30:00 [facility] Pfizer COVID-19 Pfizer COVID-19 2021-01-11 Completed [facility] Vaccine Vaccine 16:30:00 [facility] Pfizer COVID-19 Pfizer COVID-19 2021-01-11 Completed [facility] Vaccine Vaccine 16:30:00 [facility] Pfizer COVID-19 Pfizer COVID-19 2021-01-11 Completed [facility] Vaccine Vaccine 16:30:00 [facility] Pfizer COVID-19 Pfizer COVID-19 2021-01-11 Completed [facility] Vaccine Vaccine 16:30:00 [facility] Pfizer COVID-19 Pfizer COVID-19 2021-01-11 Completed [facility] Vaccine Vaccine 16:30:00 [facility] Pfizer COVID-19 Pfizer COVID-19 2021-01-11 Completed [facility] Vaccine Vaccine 16:30:00 [facility] Pfizer COVID-19 Pfizer COVID-19 2021-01-11 Completed [facility] Vaccine Vaccine 16:30:00 - [facility] Pfizer COVID-19 Pfizer COVID-19 2021-01-11 Completed [facility] Vaccine Vaccine 16:30:00 [facility] Pfizer COVID-19 Pfizer COVID-19 2021-01-11 Completed [facility] Vaccine Vaccine 16:30:00 [facility] Pfizer COVID-19 Pfizer COVID-19 2021-01-11 Completed [facility] Vaccine Vaccine 16:30:00 - [facility] Pfizer COVID-19 Pfizer COVID-19 2021-01-11 Completed [facility] Vaccine Vaccine 16:30:00 [facility] Pfizer COVID-19 Pfizer COVID-19 2020-12-21 Completed [facility] Vaccine Vaccine 16:30:00 [facility] Pfizer COVID-19 Pfizer COVID-19 2020-12-21 Completed [facility] Vaccine Vaccine 16:30:00 [facility] Pfizer COVID-19 Pfizer COVID-19 2020-12-21 Completed [facility] Vaccine Vaccine 16:30:00 [facility] Pfizer COVID-19 Pfizer COVID-19 2020-12-21 Completed [facility] Vaccine Vaccine 16:30:00 [facility] Pfizer COVID-19 Pfizer COVID-19 2020-12-21 Completed [facility] Vaccine Vaccine 16:30:00 [facility] Pfizer COVID-19 Pfizer COVID-19 2020-12-21 Completed [facility] Vaccine Vaccine 16:30:00 [facility] Pfizer COVID-19 Pfizer COVID-19 2020-12-21 Completed [facility] Vaccine Vaccine 16:30:00 [facility] Pfizer COVID-19 Pfizer COVID-19 2020-12-21 Completed [facility] Vaccine Vaccine 16:30:00 [facility] Pfizer COVID-19 Pfizer COVID-19 2020-12-21 Completed [facility] Vaccine Vaccine 16:30:00 [facility] Pfizer COVID-19 Pfizer COVID-19 2020-12-21 Completed [facility] Vaccine Vaccine 16:30:00 - [facility] Pfizer COVID-19 Pfizer COVID-19 2020-12-21 Completed [facility] Vaccine Vaccine 16:30:00 - [facility] Pfizer COVID-19 Pfizer COVID-19 2020-12-21 Completed [facility] Vaccine Vaccine 16:30:00 - [facility] Pfizer COVID-19 Pfizer COVID-19 2020-12-21 Completed [facility] Vaccine Vaccine 16:30:00 [facility] Pfizer COVID-19 Pfizer COVID-19 2020-12-21 Completed [facility] Vaccine Vaccine 16:30:00 [facility] Vital Signs Vital Name Observation Time Observation Value Comments Source height 2022-09-26 11:30:00 65 [in_i] [facility] weight 2022-09-26 11:30:00 222 [lb_av] [facility] temperature 2022-09-26 11:30:00 98 [degF] [facility] bmi 2022-09-26 11:30:00 36.94 kg/m2 [facility] blood pressure 2022-09-26 11:30:00 132 mm[Hg] [facility] - systolic [facility] blood pressure 2022-09-26 11:30:00 76 mm[Hg] [facility] - diastolic [facility] height 2022-08-04 09:50:00 65 [in_i] [facility] weight 2022-08-04 09:50:00 222.6 [lb_av] [facility] temperature 2022-08-04 09:50:00 97.7 [degF] [facility] bmi 2022-08-04 09:50:00 37.04 kg/m2 [facility] oximetry 2022-08-04 09:50:00 97 % [facility] respiratory rate 2022-08-04 09:50:00 18 /min Comm on [facility] blood pressure 2022-08-04 09:50:00 142 mm[Hg] [facility] - systolic [facility] blood pressure 2022-08-04 09:50:00 78 mm[Hg] [facility] - diastolic [facility] height 2022-06-27 10:10:00 65 [in_i] Common [facility] weight 2022-06-27 10:10:00 231 [lb_av] Common S pirit [facility] temperature 2022-06-27 10:10:00 97.9 [degF] Common S pirit [facility] bmi 2022-06-27 10:10:00 38.44 kg/m2 [facility] oximetry 2022-06-27 10:10:00 94 % [facility] respiratory rate 2022-06-27 10:10:00 18 /min [facility] - [facility] blood pressure 2022-06-27 10:10:00 135 mm[Hg] Common [facility] - systolic [facility] blood pressure 2022-06-27 10:10:00 76 mm[Hg] [facility] - diastolic [facility] height 2022-03-28 07:50:00 67 [in_i] Common [facility] weight 2022-03-28 07:50:00 224 [lb_av] [facility] temperature 2022-03-28 07:50:00 98 [degF] Common S pirit [facility] bmi 2022-03-28 07:50:00 35.08 kg/m2 Common S pirit [facility] blood pressure 2022-03-28 07:50:00 130 mm[Hg] [facility] - systolic [facility] blood pressure 2022-03-28 07:50:00 76 mm[Hg] [facility] - diastolic [facility] height 2021-11-29 08:00:00 67 [in_i] Common S pirit [facility] weight 2021-11-29 08:00:00 226 [lb_av] Common S [facility] - [facility] temperature 2021-11-29 08:00:00 97.9 [degF] Common S p[facility] - [facility] bmi 2021-11-29 08:00:00 35.39 kg/m2 Common S p[facility] - [facility] blood pressure 2021-11-29 08:00:00 132 mm[Hg] [facility] - systolic [facility] blood pressure 2021-11-29 08:00:00 76 mm[Hg] [facility] - diastolic [facility] height 2021-08-15 16:00:00 67 [in_i[facility] weight 2021-08-15 16:00:00 223.0 [lb_av] [facility] temperature 2021-08-15 16:00:00 [facility] bmi 2021-08-15 16:00:00 34.92 kg/m2 [facility] S pirit [facility] oximetry 2021-08-15 16:00:00 96 % [facility] S [facility] respiratory rate 2021-08-15 16:00:00 18 /min [facility] blood pressure 2021-08-15 16:00:00 138 mm[Hg] [facility] - systolic [facility] blood pressure 2021-08-15 16:00:00 70 mm[Hg] [facility] - diastolic [facility] height 2021-07-12 08:00:00 67 [in_i] Common S [facility] - [facility] weight 2021-07-12 08:00:00 232 [lb_av] Common S pirit [facility] temperature 2021-07-12 08:00:00 97.4 [degF] Common S pirit [facility] bmi 2021-07-12 08:00:00 36.33 kg/m2 Common S pirit [facility] blood pressure 2021-07-12 08:00:00 128 mm[Hg] [facility] - systolic [facility] blood pressure 2021-07-12 08:00:00 82 mm[Hg] Common [facility] Procedures This patient has no known procedures. Encounters Start End Encounter Admission Attending Care Care Encounter Source Date/Time Date/Time Type Type Clinicians Facility Department ID 2022-11-04 Outpatient Rhoades, STLMLC STLMLC [id number] Common 08:11:01 Naresh [address] [facility] 2022-09-25 Outpatient Rhoades, STLMLC STLMLC [id number] Common 10:19:01 Naresh 81770 [facility] 2021-11-20 Outpatient Rhoades, STLMLC STLMLC [id number] Common 14:04:32 Naresh 50774 [facility] 2021-11-20 Outpatient Rhoades, STLMLC STLMLC [id number] Common 13:50:27 Naresh 26326 [facility] 2021-11-20 Outpatient Rhoades, STLMLC STLMLC [id number] Common 13:41:58 Naresh 58065 [facility] 2021-11-20 Outpatient Rhoades, STLMLC STLMLC [id number] Common 13:09:12 Naresh 27463 [facility] 2021-11-20 Outpatient Rhoades, STLMLC STLMLC [id number] Common 13:07:29 Naresh 37396 [facility] 2021-11-20 Outpatient Rhoades, STLMLC STLMLC [id number] Common 13:05:13 Naresh 20375 [facility] 2021-11-20 Outpatient Rhoades, STLMLC STLMLC [id number] Common 13:04:48 Naresh 96994 [facility] 2021-11-20 Outpatient STLMLC STLMLC [id number] Common 12:44:19 94228 [facility] 2021-11-20 Outpatient Joaquin, STLMLC STLMLC [id number] Common 12:12:37 Janet 288[address] [facility] 2021-11-20 Outpatient Joaquin, STLMLC STLMLC [id number] Common 12:12:16 Janet [id number] [facility] 2021-11-20 Outpatient Joaquin, STLMLC STLMLC [id number] Common 12:11:47 Janet [id number] [facility] 2021-11-20 Outpatient Joaquin, STLMLC STLMLC [id number] Common 12:09:18 Janet [id number] [facility] 2021-11-20 Outpatient Joaquin, STLMLC STLMLC [id number] Common 12:07:34 Janet [id number] [facility] 2021-11-20 Outpatient Joaquin, STLMLC STLMLC [id number] Common 12:06:22 Janet [id number] [facility] 2021-11-20 Outpatient Joaquin, STLMLC STLMLC [id number] Common 12:02:18 Janet [id number] [facility] 2021-11-20 Outpatient Joaquin, STLMLC STLMLC [id number] Common 12:00:36 Janet [id number] [facility] 2022-09-26 2022-09-26 OFFICE STLMLC STLMLC [id number] Co mmon 00:00:00 00:00:00 VISIT [facility] PT - CHI LEVEL 4 [facility] 2022-09-24 2022-09-24 OFFICE STLMLC STLMLC [id number] Co mmon 00:00:00 00:00:00 VISIT EST Spir it PT LEVEL 3 - CHI [facility] 2022-09-23 2022-09-23 (TEL) STLMLC STLMLC [id number] Co mmon 00:00:00 00:00:00 [facility] 2022-09-12 2022-09-12 (TEL) STLMLC STLMLC [id number] Co mmon 00:00:00 00:00:00 [facility] 2022-09-09 2022-09-09 (TEL) STLMLC STLMLC [id number] Co mmon 00:00:00 00:00:00 [facility] 2022-08-04 2022-08-04 (HOSP F/U) STLMLC STLMLC [id number] Common 00:00:00 00:00:00 Hospital Spiri t Follow Up [facility] 2022-08-01 2022-08-01 (TEL) STLMLC STLMLC [id number] Co mmon 00:00:00 00:00:00 [facility] 2022-08-01 2022-08-01 (TEL) STLMLC STLMLC [id number] Co mmon 00:00:00 00:00:00 [facility] 2022-06-27 2022-06-27 (WELLNESS) STLMLC STLMLC [id number] Common 00:00:00 00:00:00 Wellness Spiri t Visit [facility] 2022-03-28 2022-03-28 OFFICE STLMLC STLMLC [id number] Co mmon 00:00:00 00:00:00 VISIT [facility] PT - CHI LEVEL 4 [facility] 2021-11-29 2021-11-29 OFFICE STLMLC STLMLC [id number] Co mmon 00:00:00 00:00:00 VISIT [facility] PT - CHI LEVEL 4 [facility] 2021-11-11 2021-11-11 (TEL) STLMLC STLMLC [id number] Co mmon 00:00:00 00:00:00 [facility] 2021-08-15 2021-08-15 OFFICE STLMLC STLMLC [id number] Co mmon 00:00:00 00:00:00 VISIT EST Spir it PT LEVEL 3 - [facility] 2021-08-15 2021-08-15 (TEL) STLMLC STLMLC [id number] Co mmon 00:00:00 00:00:00 [facility] 2021-07-19 2021-07-19 (TEL) STLMLC STLMLC [id number] Co mmon 00:00:00 00:00:00 [facility] 2021-07-12 2021-07-12 OFFICE STLMLC STLMLC [id number] Co mmon 00:00:00 00:00:00 VISIT [facility] PT - CHI LEVEL 4 [facility] 2021-06-18 2021-06-18 Outpatient STLMLC STLMLC [id number] Common 00:00:00 00:00:00 [facility] 2021-06-18 2021-06-18 Outpatient STLMLC STLMLC [id number] Common 00:00:00 00:00:00 [facility] 2021-06-14 2021-06-14 Outpatient STLMLC STLMLC [id number] Common 00:00:00 00:00:00 [facility] 2021-03-12 2021-03-12 Outpatient STLMLC STLMLC [id number] Common 00:00:00 00:00:00 [facility] 2021-01-17 2021-01-17 Outpatient STLMLC STLMLC [id number] Common 00:00:00 00:00:00 [facility] 2021-01-08 2021-01-08 Outpatient R ZEB, [facility] [id number] Univers 14:00:00 14:00:00 PRICILLA [id number] [facility] 2021-01-08 2021-01-08 Outpatient R ZEB, [facility] [id number] Univers 14:00:00 14:00:00 PRICILLA [facility] 2020-12-18 2020-12-18 Outpatient R ZEB, [facility] [id number] [facility] 16:30:00 16:30:00 PRICILLA [facility] 2020-12-18 2020-12-18 Outpatient R ZEB, [facility] [id number] Univers 16:30:00 16:30:00 PRICILLA [id number] [facility] 2020-10-05 2020-10-05 Outpatient STLMLC STLMLC [id number] Common 00:00:00 00:00:00 [facility] 2020-09-14 2020-09-14 Outpatient STLMLC STLMLC [id number] Common 00:00:00 00:00:00 [facility] 2020-08-31 2020-08-31 Outpatient STLMLC STLMLC [id number] Common 00:00:00 00:00:00 [facility] 2020-08-28 2020-08-28 [facility] [id number] Common 00:00:00 00:00:00 [facility] 2020-08-24 2020-08-24 [facility] [id number] Common 00:00:00 00:00:00 [facility] Results This patient has no known results.
[2022-11-04 21:16] LABS: SARS-COV-2 RT PCR NEGATIVE (NEGATIVE)
--- NOTE | 2022-11-04 21:43 | RAD REPORT ---
EXAM DESCRIPTION: RAD - Chest Single View - 11/04/2022 8:48 pm CLINICAL HISTORY: COUGH COMPARISON: Two view chest 08/12/2022 TECHNIQUE: AP portable chest image was obtained 11/04/2022 8:48 pm . FINDINGS: Lungs are clear. Heart and vasculature are normal. No measurable pleural effusion and no p neumothorax. No acute bony abnormality seen. No acute aortic findings suspected. IMPRESSION: No acute cardiopulmonary process. No significant change from comparison study.
--- NOTE | 2022-11-04 22:28 | ER ---
Nurse's Notes [facility] Name: Cristopher Larson Age: 62 yrs Sex: Male : 1960 Arrival Date: 11/04/2022 Time: 19:19 Bed IW1 Private MD: Diagnosis: Acute bronchitis, unspecified Presentation: 11/04 19:41 Chief complaint: Patient states: "I started getting really bad chills yesterday around vc1 6:45. I have a headache and body aches, and have been coughing up phlegm for 2 weeks.". Coronavirus screen: Vaccine status: Patient reports receiving the 2nd dose of the covid vaccine. plus 2 boosters; [employer]. Ebola Screen: No symptoms or risks identified at this time. Initial Sepsis Screen: Does the patient meet any 2 criteria? No. Patient's initial sepsis screen is negative. Does the patient have a suspected source of infection? No. Patient's initial sepsis screen is negative. Risk Assessment: Do you want to hurt yourself or someone else? Patient reports no desire to harm self or others. Onset of symptoms was November 03, 2022 at 18:45. 19:41 Method Of Arrival: Ambulatory vc1 19:41 Acuity: MARTY 4 vc1 Triage Assessment: 19:44 General: Appears in no apparent distress. uncomfortable, ill, Behavior is calm, vc1 cooperative, appropriate for age. Pain: Complains of pain in headache, generalized body aches Pain does not radiate. Pain currently is 9 out of 10 on a pain scale. EENT: No deficits noted. Neuro: Level of Consciousness is awake, alert, obeys commands, Oriented to person, place, time, situation, Appropriate for age. Cardiovascular: No deficits noted. Respiratory: Airway is patent Respiratory effort is even, unlabored, Respiratory pattern is regular, symmetrical. GI: No deficits noted. No signs and/or symptoms were reported involving the gastrointestinal system. : No deficits noted. No signs and/or symptoms were reported regarding the genitourinary system. Derm: Reports chills. Musculoskeletal: No deficits noted. No signs and/or symptoms reported regarding the musculoskeletal system. Historical: - Allergies: 19:43 No Known Allergies; vc1 - PMHx: 19:43 Asthma; Hepatitis; Hypertension; osteoarthritis; vc1 - PSHx: 19:43 hernia; Shoulder; vc1 - Immunization history:: Client reports receiving the 2nd dose of the Covid vaccine. - Social history:: Smoking status: Patient denies any tobacco usage or history of. - Family history:: not pertinent. Screenin:25 [facility] ED Fall Risk Assessment (Adult) History of falling in the last 3 months, vc1 including since admission No falls in past 3 months (0 pts) Confusion or Disorientation No (0 pts) Intoxicated or Sedated No (0 pts) Impaired Gait No (0 pts) Mobility Assist Device Used No (0 pt) Altered Elimination No (0 pt) Score/Fall Risk Level 0 - 2 = Low Risk Oriented to surroundings. Abuse screen: Denies threats or abuse. Nutritional screening: No deficits noted. Tuberculosis screening: No symptoms or risk factors identified. Vital Signs: 19:41 BP 136 / 86; Pulse 69; Resp 15; Temp 100(O); Pulse Ox 98% ; Weight 97.98 kg; Height 5 vc1 ft. 7 in. (170.18 cm); Pain 9/10; 22:22 BP 149 / 82; Pulse 72; Resp 17; Temp 99.9(O); Pulse Ox 98% ; vc1 19:41 Body Mass Index 33.83 (97.98 kg, 170.18 cm) vc1 ED Course: 19:19 Patient arrived in ED. as 19:43 Triage completed. vc1 19:45 Arm band placed on left wrist. vc1 20:49 Chest Single View XRAY In Process Unspecified. EDMS 22:16 Miki Lai MD is Attending Physician. rt 22:38 No provider procedures requiring assistance completed. Patient did not have IV access vc1 during this emergency room visit. Administered Medications: No medications were administered Medication: 22:25 VIS not applicable for this client. vc1 Outcome: 22:27 Discharge ordered by MD. rt 22:38 Discharged to home ambulatory, with significant other. vc1 22:38 Condition: good 22:38 Discharge instructions given to patient, significant other, Instructed on discharge instructions, follow up and referral plans. medication usage, Demonstrated understanding of instructions, follow-up care, medications, Prescriptions given X 2. 22:38 Patient left the ED. vc1 Signatures: Dispatcher [employer] EDMS Nona Ibarra Vanessa, RN RN vc1 [place], Miki, MD MD rt
--- NOTE | 2022-11-04 22:28 | EDPHYS ---
Physician Documentation [facility] Name: Cristopher Black Age: 62 yrs Sex: Male : 1960 Arrival Date: 11/04/2022 Time: 19:19 Bed IW1 Private MD: ED Physician Miki Lai HPI: 11/04 23:01 This 62 yrs old Black Male presents to ER via Ambulatory with complaints of Fever. rt 23:01 The patient reports fever, not measured (subjective). Onset: The symptoms/episode rt began/occurred yesterday. Modifying factors: there are no obvious modifying factors. Associated signs and symptoms: Pertinent positives: cough. Severity of symptoms: At their worst the symptoms were mild. Presents to the ED with 2 weeks of reported productive cough. The patient had subjective fever, body aches earlier today, with improvement with Tylenol. Denies dyspnea. Denies other acute complaints at this time. Symptoms are mild in severity, no other aggravating or alleviating factors.. Historical: - Allergies: 19:43 No Known Allergies; vc1 - PMHx: 19:43 Asthma; Hepatitis; Hypertension; osteoarthritis; vc1 - PSHx: 19:43 hernia; Shoulder; vc1 - Immunization history:: Client reports receiving the 2nd dose of the Covid vaccine. - Social history:: Smoking status: Patient denies any tobacco usage or history of. - Family history:: not pertinent. ROS: 23:01 Eyes: Negative for injury, pain, redness, and discharge, ENT: Negative for injury, rt pain, and discharge, Neck: Negative for injury, pain, and swelling, Cardiovascular: Negative for chest pain, palpitations, and edema, Abdomen/GI: Negative for abdominal pain, nausea, vomiting, diarrhea, and constipation, MS/Extremity: Negative for injury and deformity, Skin: Negative for injury, rash, and discoloration, Neuro: Negative for headache, weakness, numbness, tingling, and seizure, Psych: Negative for depression, anxiety, suicide ideation, homicidal ideation, and hallucinations. 23:01 Constitutional: Positive for body aches, chills. 23:01 Respiratory: Positive for cough, Negative for shortness of breath. Exam: 23:01 Constitutional: This is a well developed, well nourished patient who is awake, alert, rt and in no acute distress. Head/Face: Normocephalic, atraumatic. Eyes: Pupils equal round and reactive to light, extra-ocular motions intact. Lids and lashes normal. Conjunctiva and sclera are non-icteric and not injected. Cornea within normal limits. Periorbital areas with no swelling, redness, or edema. Chest/axilla: Normal chest wall appearance and motion. Nontender with no deformity. No lesions are appreciated. Cardiovascular: Regular rate and rhythm with a normal S1 and S2. No gallops, murmurs, or rubs. Normal PMI, no JVD. No pulse deficits. Abdomen/GI: Soft, non-tender, with normal bowel sounds. No distension or tympany. No guarding or rebound. No evidence of tenderness throughout. Skin: Warm, dry with normal turgor. Normal color with no rashes, no lesions, and no evidence of cellulitis. MS/ Extremity: Pulses equal, no cyanosis. Neurovascular intact. Full, normal range of motion. Neuro: Awake and alert, GCS 15, oriented to person, place, time, and situation. Cranial nerves II-XII grossly intact. Motor strength 5/5 in all extremities. Sensory grossly intact. Cerebellar exam normal. Normal gait. Psych: Awake, alert, with orientation to person, place and time. Behavior, mood, and affect are within normal limits. 23:01 Respiratory: faint Wheezes heard on all lung walsh, no respiratory distress.. Vital Signs: 19:41 BP 136 / 86; Pulse 69; Resp 15; Temp 100(O); Pulse Ox 98% ; Weight 97.98 kg; Height 5 vc1 ft. 7 in. (170.18 cm); Pain 9/10; 22:22 BP 149 / 82; Pulse 72; Resp 17; Temp 99.9(O); Pulse Ox 98% ; vc1 19:41 Body Mass Index 33.83 (97.98 kg, 170.18 cm) vc1 MDM: 22:21 Patient medically screened. rt 23:01 Differential diagnosis: viral Infection, bacterial infection, URI, bronchitis, rt pneumonia. Data reviewed: vital signs, nurses notes, lab test result(s), radiologic studies. Test considered but Not performed: EKG: no chest pain. Labs: stable VS. Care significantly affected by the following chronic conditions: asthma. Scoring Tools PERC Rule for PE. 11/04 20:15 Order name: Chest Single View XRAY; Complete Time: 22:16 rt 11/04 21:17 Order name: COVID-19/FLU A+B; Complete Time: 22:16 EDMS Administered Medications: No medications were administered Disposition Summary: 11/04/22 22:27 Discharge Ordered Location: Home rt Problem: an ongoing problem rt Symptoms: are unchanged rt Condition: Stable rt Diagnosis - Acute bronchitis, unspecified rt Followup: rt - With: Private Physician - When: 2 - 3 days - Reason: Discharge Instructions: - Discharge Summary Sheet vc1 - Acute Bronchitis, Adult rt Forms: - Work release form vc1 - Medication Reconciliation Form rt - Thank You Letter rt - Antibiotic Education rt - Prescription Opioid Use rt Prescriptions: - Tessalon Perles 100 mg Oral Capsule - take 1 capsule by ORAL route every 8 hours As needed; 15 capsule; Refills: 0, rt Product Selection Permitted - Prednisone 20 mg Oral Tablet - take 2 tablets by ORAL route once daily for 5 days; 10 tablet; Refills: 0, rt Product Selection Permitted Signatures: Dispatcher [employer] EDMS Janet Barroso RN RN vc1 Miki Lai MD MD rt Corrections: (The following items were deleted from the chart) 21:18 19:48 SARS-COV-2 RT PCR+[email or web address].[email or web address].BRZ ordered. EDMS EDMS 21:19 21:15 Influenza Screen (A \T\ B)+BA.LAB.BRZ ordered. EDMS EDMS
[2022-11-04 22:55] VITALS: O2SAT 98
[2022-11-04 23:09] VITALS: BP 149/82; TEMP 99.9
== END 2022-11-04 22:38 | disposition home or self-care (01) ==
LOC: ER 19:16
DX: J20.9 Acute bronchitis, unspecified (principal); Z20.822 Contact with and (suspected) exposure to COVID-19; I10 Essential (primary) hypertension
CPT/HCPCS: 0240U; 71045; 99283

== ENCOUNTER 2022-11-19 20:37 | Emergency (ER) | payer BC ==
--- OUTSIDE RECORDS SUMMARY | 2022-11-19 20:41 | XMS REPORT | Continuity of Care Document ---
:1960 Author Organization [facility] t Address [address] [place] [address] Care Team Providers Name Role Phone Naresh Rhoades Attending Clinician Unavailable Janet Nuñez Attending Clinician Unavailable PRICILLA CARRINGTON Attending Clinician Unavailable Payers Payer Name Policy Type Policy Number Effective Date Expiration Date S ource [employer] 6 [id number] 2020 [facility] t [employer] of 00:00:00 - [facility] [id number] 2014 00:00:00 Problems Condition Condition Condition Status Onset Resolution Last Treating Co mments Source Name Details Category Date Date Treatment Clinician Date Calcaneal Heel spur, Problem Co mmon spur left Spirit - [facility] [id number] Autoimmune Problem Com mon thyroiditi Spirit s - [facility] [id number] Other Problem Common specified Spirit hypothyroi - [facility] dism [facility] [id number] Atopic Problem Common dermatitis Spirit , - [facility] unspecifie [facility] [id number] Body mass Problem Com mon index Spirit [BMI] - [facility] 37.0-37.9, [facility] [id number] Morbid Problem Commo n 9104 (severe) Spirit obesity - [facility] due to [facility] [id number] Bladder Problem Commo n wall Spirit thickening - [facility] [id number] Bladder Problem Commo n diverticul [facility] Benign BPH Problem Common prostatic (benign Spirit hyperplasi prostatic - C HI a hyperplasi St a) [facility] Insomnia Insomnia Problem Commo n [facility] Gastroesop GERD Problem Commo n hageal (gastroeso Spirit reflux [facility] disease reflux St disease) [facility] Polyarthra Polyarthra Problem C ommon lgia lgia [facility] Obese BMI Problem Common class I 33.0-33.9, Spiri t adult [facility] Benign Benign Problem Common essential essential Spir it hypertensi hypertensi [facility] on on [facility] Asthma Asthma Problem Common [facility] Obesity Other Problem Common obesity [facility] Chronic Hep C w/o Problem Commo n hepatitis coma, Spirit C chronic [facility] Hyperlipid HLD Problem Commo n aemia (hyperlipi Spirit demia) [facility] Allergies, Adverse Reactions, Alerts Allergy Allergy Status Severity Reaction(s) Onset Inactive Treating Comm ents Source Name Type Date Date Clinician NO KNOWN Drug Active Univers ALLERGIE Class ity of S [facility] Social History Social Habit Start Date Stop Date Quantity Comments Source History of Tobacco Use Co mmon [facility] Sex Assigned At Com [facility] Smoking Status Start Date Stop Date Source Former Smoker 2022-11-04 00:00:00 2022-11-04 00:00:00 Common S [facility] Medications Ordered Filled Start Stop Current Ordering Indication Dosage Frequency Signature Comments Components Source Medication Medication Date Date Medication? Clinician (SIG) Name Name Promethazin Promethazin No 10{ml_a TID Promethazi e HCl 6.25 e HCl 6.25 11-04 s_neede ne HCl MG/5ML MG/5ML 00:00: 00:00 d} 6.25 00 :00 MG/5ML Promethazin Promethazin 2022- No 10{ml_a TID Promethazi e HCl 6.25 e HCl 6.25 11-0417 s_neede ne HCl MG/5ML MG/5ML 00:00: 00:00 d} 6.25 00 :00 MG/5ML Benzonatate Benzonatate 2021-10- No 1{capsu Benzonatat 200 MG 200 MG 11-24 le_as_n e 200 MG 00:00: 00:00 eeded} 00 :00 Cefdinir Cefdinir 2021-10- No Cefdinir 300 MG 300 MG 11-24 300 MG 00:00: 00:00 00 :00 methylPREDN methylPREDN 2021-10- No QD methylPRED ISolone 4 ISolone 4 11-24 [...] MCG/INH 00 :00 5 MCG/INH Levothyroxi Levothyroxi No QD Levothyrox ne Sodium ne Sodium 03-28 ine Sodium 50 MCG 50 MCG 00:00: 50 MCG 00 methylPREDN methylPREDN 2020-10- No QD methylPRED ISolone 4 ISolone 4 0-08-21 NISolone 4 MG MG 00:00: 00:00 MG 00 :00 methylPREDN methylPREDN 2020-10- No QD methylPRED ISolone 4 ISolone 4 0-08-21 NISolone 4 MG MG 00:00: 00:00 MG [...] ROthiazide 20-25 MG 20-25 MG 20-25 MG Lisinopril- Lisinopril- No 1{table QD Lisinopril hydroCHLORO hydroCHLORO t} -hydroCHLO thiazide thiazide ROthiazide 20-25 MG 20-25 MG 20-25 MG Advair HFA Advair HFA No 2{puffs BID Advair HFA 230-21 230-21 } 230-21 MCG/ACT MCG/ACT MCG/ACT traZODone traZODone No traZODone HCl 100 MG HCl 100 MG HCl 100 MG hydrOXYzine hydrOXYzine No hydrOXYzin HCl 50 MG HCl 50 MG e HCl 50 MG Trelegy Trelegy No Trelegy Ellipta Ellipta Ellipta 200-62.5-25 200-62.5-25 200-62.5-2 MCG/ACT MCG/ACT 5 MCG/ACT Levothyroxi Levothyroxi No QD Levothyrox ne Sodium ne Sodium ine Sodium 50 MCG 50 MCG 50 MCG Meloxicam Meloxicam No Meloxicam 7.5 MG 7.5 MG 7.5 MG Omeprazole Omeprazole No Omeprazole 40 MG 40 MG 40 MG amLODIPine amLODIPine No 1{table QD amLODIPine Besylate 5 Besylate 5 t} Besylate 5 MG MG MG Albuterol Albuterol No 2{puff_ TID Albuterol Sulfate 108 Sulfate 108 as_need Sulfate (90 Base) (90 Base) ed} 108 (90 MCG/ACT MCG/ACT Base) MCG/ACT Triamcinolo Triamcinolo No Triamcinol ne ne one Acetonide Acetonide Acetonide 0.1 % 0.1 % 0.1 % Lisinopril- Lisinopril- No 1{table QD Lisinopril hydroCHLORO hydroCHLORO t} -hydroCHLO thiazide thiazide ROthiazide 20-25 MG 20-25 MG 20-25 MG Advair HFA Advair HFA No 2{puffs BID Advair HFA 230-21 230-21 } 230-21 MCG/ACT MCG/ACT MCG/ACT traZODone traZODone No traZODone HCl 100 MG HCl 100 MG HCl 100 MG hydrOXYzine hydrOXYzine No hydrOXYzin HCl 50 MG HCl 50 MG e HCl 50 MG Trelegy Trelegy No Trelegy Ellipta Ellipta Ellipta 200-62.5-25 200-62.5-25 200-62.5-2 MCG/ACT MCG/ACT 5 MCG/ACT Levothyroxi Levothyroxi No QD Levothyrox ne Sodium ne Sodium ine Sodium 50 MCG 50 MCG 50 MCG Meloxicam Meloxicam No Meloxicam 7.5 MG 7.5 MG 7.5 MG Omeprazole Omeprazole No Omeprazole 40 MG 40 MG 40 MG amLODIPine amLODIPine No 1{table QD amLODIPine Besylate 5 Besylate 5 t} Besylate 5 MG MG MG Albuterol Albuterol No 2{puff_ TID Albuterol Sulfate 108 Sulfate 108 as_need Sulfate (90 Base) (90 Base) ed} 108 (90 MCG/ACT MCG/ACT Base) MCG/ACT Triamcinolo Triamcinolo No Triamcinol ne ne [...] Status Commen ts Source Name Name [facility] 2021-08-15 Completed [facility] 16:24:00 - [facility]-15 Completed [facility] 16:24:00 [facility] 2021-08-15 Completed [facility] 16:24:00 [facility] 2021-08-15 Completed [facility]24[facility] 2021-08-15 Completed [facility] 16:24:00 [facility] 2021-08-15 Completed [facility] 16:24:00 - [facility] Afluria Afluria 2021-08-15 Completed [facility] 16:24:00 - [facility] Afluria Afluria 2021-08-15 Completed [facility] 16:24:00 - [facility] Afluria Afluria 2021-08-15 Completed [facility] 16:24:00 - [facility] Afluria Afluria 2021-08-15 Completed [facility] 16:24:00 - [facility] Afluria Afluria 2021-08-15 Completed [facility] 16:24:00 [facility] Afluria Afluria 2021-08-15 Completed [facility] 16:24:00 - [facility] Afluria Afluria 2021-08-15 Completed [facility] 16:24:00 - [facility] Afluria Afluria 2021-08-15 Completed [facility] 16:24:00 - [facility] Afluria Afluria 2021-08-15 Completed [facility] 16:24:00 [facility] Afluria Afluria 2021-08-15 Completed [facility] 16:24:00 [facility] Pfizer COVID-19 Pfizer COVID-19 2021-06-14 Completed Comm on Spirit Vaccine Vaccine 16:31:00 - [facility] Pfizer COVID-19 Pfizer COVID-19 2021-06-14 Completed Comm on [facility] Vaccine Vaccine 16:31:00 [facility] Pfizer COVID-19 Pfizer COVID-19 2021-06-14 Completed Comm on [facility] Vaccine Vaccine 16:31:00 [facility] Pfizer COVID-19 Pfizer COVID-19 2021-06-14 Completed Comm on [facility] Vaccine Vaccine 16:31:00 [facility] Pfizer COVID-19 Pfizer COVID-19 2021-06-14 Completed Comm on [facility] Vaccine Vaccine 16:31:00 [facility] Pfizer COVID-19 Pfizer COVID-19 2021-06-14 Completed Comm on [facility] Vaccine Vaccine 16:31:00 [facility] Pfizer COVID-19 Pfizer COVID-19 2021-06-14 Completed Comm on [facility] Vaccine Vaccine 16:31:00 [facility] Pfizer COVID-19 Pfizer COVID-19 2021-06-14 Completed Comm on [facility] Vaccine Vaccine 16:31:00 [facility] Pfizer COVID-19 Pfizer COVID-19 2021-06-14 Completed Comm on [facility] Vaccine Vaccine 16:31:00 [facility] Pfizer COVID-19 Pfizer COVID-19 2021-06-14 Completed Comm on [facility] Vaccine Vaccine 16:31:00 [facility] Pfizer COVID-19 Pfizer COVID-19 2021-06-14 Completed Comm on [facility] Vaccine Vaccine 16:31:00 [facility] Pfizer COVID-19 Pfizer COVID-19 2021-06-14 Completed [...] Completed Comm on [facility] Vaccine Vaccine 16:30:00 [facility] Pfizer COVID-19 Pfizer COVID-19 2021-01-11 Completed Comm on [facility] Vaccine Vaccine 16:30:00 [facility] Pfizer COVID-19 Pfizer COVID-19 2021-01-11 Completed Comm on [facility] Vaccine Vaccine 16:30:00 - [facility] Pfizer COVID-19 Pfizer COVID-19 2021-01-11 Completed Comm on [facility] Vaccine Vaccine 16:30:00 - [facility] Pfizer COVID-19 Pfizer COVID-19 2021-01-11 Completed Comm on [facility] Vaccine Vaccine 16:30:00 [facility] Pfizer COVID-19 Pfizer COVID-19 2021-01-11 Completed Comm on [facility] Vaccine Vaccine 16:30:00 [facility] Pfizer COVID-19 Pfizer COVID-19 2021-01-11 Completed Comm on [facility] Vaccine Vaccine 16:30:00 [facility] Pfizer COVID-19 Pfizer COVID-19 2021-01-11 Completed Comm on [facility] Vaccine Vaccine 16:30:00 [facility] Pfizer COVID-19 Pfizer COVID-19 2021-01-11 Completed Comm on [facility] Vaccine Vaccine 16:30:00 [facility] Pfizer COVID-19 Pfizer COVID-19 2021-01-11 Completed Comm on [facility] Vaccine Vaccine 16:30:00 [facility] Pfizer COVID-19 Pfizer COVID-19 2021-01-11 Completed Comm on [facility] Vaccine Vaccine 16:30:00 - [facility] Pfizer COVID-19 Pfizer COVID-19 2021-01-11 Completed Comm on [facility] Vaccine Vaccine 16:30:00 - [facility] Pfizer COVID-19 Pfizer COVID-19 2021-01-11 Completed Comm on [facility] Vaccine Vaccine 16:30:00 [facility] Pfizer COVID-19 Pfizer COVID-19 2021-01-11 Completed Comm on [facility] Vaccine Vaccine 16:30:00 [facility] Pfizer COVID-19 Pfizer COVID-19 2021-01-11 Completed [facility] on [facility] Vaccine Vaccine 16:30:00 - [facility] Pfizer COVID-19 Pfizer COVID-19 2021-01-11 Completed Comm on [facility] Vaccine Vaccine 16:30:00 [facility] Pfizer COVID-19 Pfizer COVID-19 2020-12-21 Completed [facility] Vaccine Vaccine 16:30:00 [facility] Pfizer COVID-19 Pfizer COVID-19 2020-12-21 Completed Comm on [facility] Vaccine Vaccine 16:30:00 - [facility] Pfizer COVID-19 Pfizer COVID-19 2020-12-21 Completed Comm [facility] Vaccine Vaccine 16:30:00 [facility] Pfizer COVID-19 Pfizer COVID-19 2020-12-21 Completed [facility] on [facility] Vaccine Vaccine 16:30:00 [facility] Pfizer COVID-19 Pfizer COVID-19 2020-12-21 Completed [facility] Vaccine Vaccine 16:30:00 [facility] Pfizer COVID-19 Pfizer COVID-19 2020-12-21 Completed [facility] on [facility] Vaccine Vaccine 16:30:00 [facility] Pfizer COVID-19 Pfizer COVID-19 2020-12-21 Completed Comm on [facility] Vaccine Vaccine 16:30:00 [facility] Pfizer COVID-19 Pfizer COVID-19 2020-12-21 Completed [facility] on [facility] Vaccine Vaccine 16:30:00 [facility] Pfizer COVID-19 Pfizer COVID-19 2020-12-21 Completed [facility] on [facility] Vaccine Vaccine 16:30:00 [facility] Pfizer COVID-19 Pfizer COVID-19 2020-12-21 Completed [facility] Vaccine Vaccine 16:30:00 - [facility] Pfizer COVID-19 Pfizer COVID-19 2020-12-21 Completed Comm on [facility] Vaccine Vaccine 16:30:00 [facility] Pfizer COVID-19 Pfizer COVID-19 2020-12-21 Completed [...] Completed Comm on [facility] Vaccine Vaccine 16:30:00 [facility] Vital Signs Vital Name Observation Time Observation Value Comments Source height 2022-11-04 10:00:00 65 [in_i] [facility] weight 2022-11-04 10:00:00 216 [lb_av] [facility] bmi 2022-11-04 10:00:00 35.94 kg/m2 [facility] height 2022-09-26 11:30:00 65 [in_i] [facility] weight 2022-09-26 11:30:00 222 [lb_av] [facility] temperature 2022-09-26 11:30:00 98 [degF] [facility] bmi 2022-09-26 11:30:00 36.94 kg/m2 [facility] blood pressure 2022-09-26 11:30:00 132 mm[Hg] Common [facility] - systolic [facility] blood pressure 2022-09-26 11:30:00 76 mm[Hg] Common [facility] - diastolic [facility] height 2022-08-04 09:50:00 65 [in_i] Common S [facility] weight 2022-08-04 09:50:00 222.6 [lb_av] Common [facility] temperature 2022-08-04 09:50:00 97.7 [degF] Common [facility] bmi 2022-08-04 09:50:00 37.04 kg/m2 [facility] 2022-08-04 09:50:00 97 % Common S [facility] respiratory rate 2022-08-04 09:50:00 18 /min Comm on [facility] blood pressure 2022-08-04 09:50:00 142 mm[Hg] Common [facility] - systolic [facility] blood pressure 2022-08-04 09:50:00 78 mm[Hg] [facility] - diastolic [facility] height 2022-06-27 10:10:00 65 [in_i] Common S [facility] weight 2022-06-27 10:10:00 231 [lb_av] Common S [facility] temperature 2022-06-27 10:10:00 97.9 [degF] [facility] bmi 2022-06-27 10:10:00 38.44 kg/m2 [facility] S [facility] oximetry 2022-06-27 10:10:00 94 % [facility] 2022-06-27 10:10:00 18 /min Comm on [facility] blood pressure 2022-06-27 10:10:00 135 mm[Hg] [facility] - systolic [facility] blood pressure 2022-06-27 10:10:00 76 mm[Hg] [facility] - diastolic [facility] height 2022-03-28 07:50:00 67 [in_i] Common S pirit [facility] weight 2022-03-28 07:50:00 224 [lb_av] Common S pirit - [facility] temperature 2022-03-28 07:50:00 98 [degF] Common S pirit - [facility] bmi 2022-03-28 07:50:00 35.08 kg/m2 Common S pirit - [facility] blood pressure 2022-03-28 07:50:00 130 mm[Hg] [facility] - systolic [facility] blood pressure 2022-03-28 07:50:00 76 mm[Hg] [facility] - diastolic [facility] height 2021-11-29 08:00:00 67 [in_i] [facility] 2021-11-29 08:00:00 226 [lb_av] Common S pirit [facility] temperature 2021-11-29 08:00:00 97.9 [degF] Common [facility] bmi 2021-11-29 08:00:00 35.39 kg/m2 Common S pirit - [facility] blood pressure 2021-11-29 08:00:00 132 mm[Hg] [facility] - systolic [facility] blood pressure 2021-11-29 08:00:00 76 mm[Hg] [facility] - diastolic [facility] height 2021-08-15 16:00:00 67 [in_i] Common S pirit [facility] weight 2021-08-15 16:00:00 223.0 [lb_av] Common [facility] - [facility] temperature 2021-08-15 16:00:00 97.1 [degF] Common S pirit [facility] bmi 2021-08-15 16:00:00 34.92 kg/m2 Common S [facility] oximetry 2021-08-15 16:00:00 96 % [facility] 2021-08-15 16:00:00 18 /min Comm on [facility] blood pressure 2021-08-15 16:00:00 138 mm[Hg] [facility] - systolic [facility] blood pressure 2021-08-15 16:00:00 70 mm[Hg] Common [facility] - diastolic [facility] height 2021-07-12 08:00:00 67 [in_i] Common [facility] weight 2021-07-12 08:00:00 232 [lb_av] Common [facility] temperature 2021-07-12 08:00:00 97.4 [degF] Common [facility] bmi 2021-07-12 08:00:00 36.33 kg/m2 [facility] blood pressure 2021-07-12 08:00:00 128 mm[Hg] Common [facility] - systolic [facility] blood pressure 2021-07-12 08:00:00 82 mm[Hg] Common [facility] - diastolic [facility] Procedures This patient has no known procedures. Encounters Start End Encounter Admission Attending Care Care Encounter Source Date/Time Date/Time Type Type Clinicians Facility Department ID 2022-11-04 Outpatient Rhoades, STLMLC STLMLC [id number] Common 08:11:01 Naresh 90746 [facility] 2022-09-25 Outpatient Rhoades, STLMLC STLMLC [id number] Common 10:19:01 Naresh 23869 [facility] 2021-11-20 Outpatient Rhoades, STLMLC STLMLC [id number] Common 14:04:32 Naresh 92074 [facility] 2021-11-20 Outpatient Rhoades, STLMLC STLMLC [id number] Common 13:50:27 Naresh 95243 [facility] 2021-11-20 Outpatient Rhoades, STLMLC STLMLC [id number] Common 13:41:58 Naresh 27125 [facility] 2021-11-20 Outpatient Rhoades, STLMLC STLMLC [id number] Common 13:09:12 Naresh 97232 [facility] 2021-11-20 Outpatient Rhoades, STLMLC STLMLC [id number] Common 13:07:29 Naresh 59515 [facility] 2021-11-20 Outpatient Rhoades, STLMLC STLMLC [id number] Common 13:05:13 [facility] 93801 [facility] 2021-11-20 Outpatient Rhoades, STLMLC STLMLC [id number] Common 13:04:48 [facility] 79176 [facility] 2021-11-20 Outpatient STLMLC STLMLC [id number] Common 12:44:19 50002 [facility] 2021-11-20 Outpatient Joaquin, STLMLC STLMLC [id number] Common 12:12:37 Janet 08298 [facility] 2021-11-20 Outpatient Joaquin, STLMLC STLMLC [id number] Common 12:12:16 Janet 29430 [facility] 2021-11-20 Outpatient Joaquin, STLMLC STLMLC [id number] Common 12:11:47 Janet 60287 [facility] 2021-11-20 Outpatient Joaquin, STLMLC STLMLC [id number] Common 12:09:18 Janet 96129 [facility] 2021-11-20 Outpatient Joaquin, STLMLC STLMLC [id number] Common 12:07:34 Janet 42636 [facility] 2021-11-20 Outpatient Joaquin, STLMLC STLMLC [id number] Common 12:06:22 Janet 19198 [facility] 2021-11-20 Outpatient Joaquin, STLMLC STLMLC [id number] Common 12:02:18 Janet 65784 [facility] 2021-11-20 Outpatient Joaquin, STLMLC STLMLC [id number] Common 12:00:36 Janet 60011 [facility] 2022-11-04 2022-11-04 (TEL) STLMLC STLMLC [id number] Co mmon 00:00:00 00:00:00 [facility] 2022-11-04 2022-11-04 OFFICE STLMLC STLMLC [id number] Co mmon 00:00:00 00:00:00 VISIT EST Spir it PT LEVEL 3 - [facility] 2022-09-26 2022-09-26 OFFICE STLMLC STLMLC [id number] Co mmon 00:00:00 00:00:00 VISIT Spirit ESTAB PT - [facility] LEVEL 4 [facility] 2022-09-24 2022-09-24 OFFICE STLMLC STLMLC [id number] Co mmon 00:00:00 00:00:00 VISIT EST Spir it PT LEVEL 3 - [facility] 2022-09-23 2022-09-23 (TEL) STLMLC STLMLC [id number] Co mmon 00:00:00 00:00:00 [facility] 2022-09-12 2022-09-12 (TEL) STLMLC STLMLC [id number] Co mmon 00:00:00 00:00:00 [facility] 2022-09-09 2022-09-09 (TEL) STLMLC STLMLC [id number] Co mmon 00:00:00 00:00:00 [facility] 2022-08-04 2022-08-04 (HOSP F/U) STLMLC STLMLC [id number] Common 00:00:00 00:00:00 Hospital Spiri t Follow Up - [facility] 2022-08-01 2022-08-01 (TEL) STLMLC STLMLC [id number] Co mmon 00:00:00 00:00:00 [facility] 2022-08-01 2022-08-01 (TEL) STLMLC STLMLC [id number] Co mmon 00:00:00 00:00:00 [facility] 2022-06-27 2022-06-27 (WELLNESS) STLMLC STLMLC [id number] Common 00:00:00 00:00:00 Wellness Spiri t Visit - [facility] 2022-03-28 2022-03-28 OFFICE STLMLC STLMLC [id number] Co mmon 00:00:00 00:00:00 VISIT Spirit ESTAB PT - [facility] LEVEL 4 [facility] 2021-11-29 2021-11-29 OFFICE STLMLC STLMLC [id number] Co mmon 00:00:00 00:00:00 VISIT [facility] PT - CHI LEVEL 4 [facility] 2021-11-11 2021-11-11 (TEL) STLMLC STLMLC [id number] Co mmon 00:00:00 00:00:00 [facility] 2021-08-15 2021-08-15 OFFICE STLMLC STLMLC [id number] Co mmon 00:00:00 00:00:00 VISIT EST Spir it PT LEVEL 3 - [facility] 2021-08-15 2021-08-15 (TEL) STLMLC STLMLC [id number] Co mmon 00:00:00 00:00:00 [facility] 2021-07-19 2021-07-19 (TEL) STLMLC STLMLC [id number] Co mmon 00:00:00 00:00:00 [facility] 2021-07-12 2021-07-12 OFFICE STLMLC STLMLC [id number] Co mmon 00:00:00 00:00:00 VISIT [facility] PT - CHI LEVEL 4 [facility] 2021-06-18 2021-06-18 Outpatient STLMLC STLMLC [id number] Common 00:00:00 00:00:00 [facility] 2021-06-18 2021-06-18 Outpatient STLMLC STLMLC [id number] Common 00:00:00 00:00:00 [facility] 2021-06-14 2021-06-14 Outpatient STLMLC STLMLC [id number] Common 00:00:00 00:00:00 [facility] 2021-03-12 2021-03-12 Outpatient STLMLC STLMLC [id number] Common 00:00:00 00:00:00 [facility] 2021-01-17 2021-01-17 Outpatient STLMLC STLMLC [id number] Common 00:00:00 00:00:00 [facility] 2021-01-08 2021-01-08 Outpatient Nish [facility] [id number] Univers 14:00:00 14:00:00 PRICILLA [id number] [facility] 2021-01-08 2021-01-08 Outpatient Nish [facility] [id number] Univers 14:00:00 14:00:00 PRICILLA [facility] 2020-12-18 2020-12-18 Outpatient Nish [facility] [id number] Univers 16:30:00 16:30:00 PRICILLA [facility] 2020-12-18 2020-12-18 Outpatient Nish [facility] [id number] Univers 16:30:00 16:30:00 PRICILLA [id number] [facility] 2020-10-05 2020-10-05 Outpatient STLMLC STLMLC [id number] Common 00:00:00 00:00:00 [facility] 2020-09-14 2020-09-14 Outpatient STLMLC STLMLC [id number] Common 00:00:00 00:00:00 [facility] 2020-08-31 2020-08-31 Outpatient STLMLC STLMLC [id number] Common 00:00:00 00:00:00 [facility] 2020-08-28 2020-08-28 Outpatient STLMLC STLMLC [id number] Common 00:00:00 00:00:00 [facility] 2020-08-24 2020-08-24 Outpatient STLMLC STLMLC [id number] Common 00:00:00 00:00:00 [facility] Results Test Description Test Time Test Comments Results Result Comments Source STREP A RAPID 2022-11-04 Result 00:00:00 POC, COVID 19 POC, COVID 19 Antigen + Flu by Antigen + Flu Naida by Naida
[2022-11-19 21:32] LABS: Urine Blood 2+ (Negative); Urine Glucose Negative (Negative); Urine Protein 1+ (Negative)
[2022-11-19 21:38] LABS: Absolute Lymphocytes (CBC) 1.9 K/uL (0.7-4.9); Hematocrit 38.8 % (39.6-49.0); Lymphocytes % 23.5 % (15.3-44.8); MCV 88.6 fL (80-100); MPV 9.3 fL (7.6-11.3); RBC Red Blood Cell Count 4.38 M/uL (4.33-5.43)
[2022-11-19] MEDS ORDERED: KETOROLAC 30 MG/ML INJ ONE (21:47)
[2022-11-19 21:52] LABS: Potassium 3.8 mmol/L (3.5-5.1)
[2022-11-19] MEDS ORDERED: CEPHALEXIN 250 MG CAP ONE (21:59)
[2022-11-19 22:06] LABS: Urine Bacteria <20 /HPF (<20); Urine Mucus Slight /HPF (None Seen); Urine RBC >50 /HPF (None Seen); Urine Sperm Present (None Seen); Urine WBC Clump Rare /HPF (None Seen)
--- NOTE | 2022-11-19 22:59 | EDPHYS ---
Physician Documentation [facility] Name: Cristopher Black Age: 62 yrs Sex: Male : 1960 Arrival Date: 11/19/2022 Time: 20:41 Bed 8 Private MD: [facility] ED Physician Otilio Muro HPI: 11/19 21:14 This 62 yrs old Black Male presents to ER via Unassigned with complaints of Back Pain, bs3 Urinary Problem. 21:14 62-year-old history of hypertension presents with bilateral kidney pain he states that bs3 his kidneys have been hurting since this morning he notes increased urinary frequency as well he has never had these symptoms before he took Advil without relief, no abdominal pain, no cough, or any other symptoms. . Historical: - Allergies: 21:15 No Known Allergies; kl - Home Meds: 21:15 Albuterol Inhl [Active]; amlodipine oral [Active]; Hydroxyzine Oral [Active]; kl lisinopril-hydrochlorothiazide Oral 1 tab [Active]; meloxicam Oral [Active]; Omeprazole Oral [Active]; Symbicort inhalation [Active]; Trazodone Oral [Active]; - PMHx: 21:15 Asthma; Hepatitis; Hypertension; osteoarthritis; kl - PSHx: 21:15 hernia; Shoulder; kl - Immunization history:: Adult Immunizations not up to date. - Social history:: Smoking status: Patient denies any tobacco usage or history of. ROS: 21:14 Constitutional: Negative for fever, chills Eyes: Negative for injury, pain, redness, bs3 and discharge, ENT: Negative for injury, pain, and discharge, Neck: Negative for injury, pain, and swelling, Cardiovascular: Negative for chest pain, palpitations, and edema, Respiratory: Negative for shortness of breath, cough, wheezing Abdomen/GI: Negative for abdominal pain, nausea, vomiting, diarrhea MS/Extremity: Negative for injury and deformity, Skin: Negative for injury, rash, and discoloration, Neuro: Negative for headache, weakness, numbness, tingling, and seizure. Exam: 21:14 Constitutional: This is a well developed, well nourished patient who is awake, alert, bs3 and in no acute distress. Eyes: Pupils equal round and reactive to light, extra-ocular motions intact. Lids and lashes normal. ENT: mmm, no posterior phyarngeal erythema Neck: Trachea midline, no thyromegaly, no neck stiffness Chest/axilla: Normal chest wall appearance and motion. Nontender with no deformity. No lesions are appreciated. Cardiovascular: Regular rate and rhythm with a normal S1 and S2. symmetric pulses in upper extremities Respiratory: Lungs have equal breath sounds bilaterally, clear to auscultation, no respiratory distress Abdomen/GI: Soft, non-tender, no rebound or guarding Back: b/l mild cva tenderness, no rash, no sig pain with ROM MS/ Extremity: Pulses equal, no cyanosis. Neurovascular intact. Full, normal range of motion. Neuro: Awake and alert, GCS 15, oriented to person, place, time, and situation. Cranial nerves II-XII grossly intact. Motor strength 5/5 in all extremities. Sensory grossly intact. Psych: Awake, alert, with orientation to person, place and time. Behavior, mood, and affect are within normal limits. Vital Signs: 21:13 BP 146 / 0; Pulse 61; Resp 16; Temp 97.9; Pulse Ox 98% on R/A; Weight 99.34 kg (R); kl Height 5 ft. 7 in. (170.18 cm); Pain 10/10; 21:50 BP 139 / 81; Pulse 68; Resp 16; Pulse Ox 100% on R/A; Pain 10/10; mb9 22:40 BP 139 / 94; Pulse 72; Resp 16; Pulse Ox 98% on R/A; kl 21:13 Body Mass Index 34.30 (99.34 kg, 170.18 cm) kl MDM: 20:44 Patient medically screened. bs3 21:14 Differential diagnosis: possible uti, renal failure, consider kidney stone, but less bs3 likely given symptom presentation. Data reviewed: vital signs, nurses notes. 21:46 ED course: ua conssitent with uti as interpreted by myself. Will tx for complicated uti bs3 given age. . 22:51 Consideration of Admission/Observation. ED course: pt with ua consistent with uti, bs3 otherwise labs neg as reviewed by myself, I considered admission given complicated hx, but pt stable, will give antibiotics. . 11/19 21:12 Order name: CBC with Diff; Complete Time: 21:45 bs3 11/19 21:12 Order name: BMP; Complete Time: 22:46 bs3 11/19 21:12 Order name: UA MICROSCOPIC; Complete Time: 22:46 bs3 11/19 21:32 Order name: Urine Dipstick-Ancillary; Complete Time: 21:45 EDMS Administered Medications: 21:49 Not Given (Other Intervention Used): Ketorolac 15 mg IVP once mb9 21:50 Drug: Ketorolac 15 mg Route: IM; Site: right deltoid; mb9 22:16 Follow up: Response: No adverse reaction mb9 23:17 Follow up: Response: No adverse reaction; Marked relief of symptoms kl 21:56 Not Given (Physician Discretion): cefPODOXime 100 mg PO once kl 22:00 Drug: KeFLEX (cephalexin) 500 mg Route: PO; mb9 23:17 Follow up: Response: No adverse reaction kl Disposition Summary: 11/19/22 22:59 Discharge Ordered Location: Home bs3 Problem: new bs3 Symptoms: are unchanged bs3 Condition: Stable bs3 Diagnosis - UTI/ Urinary tract infection, site not specified bs3 Followup: bs3 - With: Naresh Rhoades, - When: 2 - 3 days - Reason: Re-evaluation by your physician Discharge Instructions: - Discharge Summary Sheet bs3 - Urinary Tract Infection, Adult bs3 Forms: - Thank You Letter bs3 - Medication Reconciliation Form bs3 - Work release form kl - Antibiotic Education bs3 - Prescription Opioid Use bs3 Prescriptions: - cefpodoxime 100 mg Oral Tablet - take 2 tablets by ORAL route every 12 hours for 10 days take with food; 40 bs3 tablet; Refills: 0, Product Selection Permitted Signatures: Dispatcher [employer] Gerri Dumont RN RN kl Stein, Brandon, MD MD bs3 Carey Brito RN RN mb9 Corrections: (The following items were deleted from the chart) 21:16 21:15 Allergies: Aspirin; kl kl
--- NOTE | 2022-11-19 22:59 | ER ---
Nurse's Notes [facility] Name: Cristopher Larson Age: 62 yrs Sex: Male : 1960 Arrival Date: 11/19/2022 Time: 20:41 Bed 8 Private MD: Naresh Rhoades Diagnosis: UTI/ Urinary tract infection, site not specified Presentation: 11/19 21:13 Chief complaint: Patient states: back pain and urinary frequency began this am. Coronavirus screen: Vaccine status: Patient reports receiving the 2nd dose of the covid vaccine. Ebola Screen: Patient negative for fever greater than or equal to 101.5 degrees Fahrenheit, and additional compatible Ebola Virus Disease symptoms. Initial Sepsis Screen: Does the patient meet any 2 criteria? No. Patient's initial sepsis screen is negative. Does the patient have a suspected source of infection? No. Patient's initial sepsis screen is negative. Risk Assessment: Do you want to hurt yourself or someone else? Patient reports no desire to harm self or others. Onset of symptoms was November 19, 2022 at 08:00. 21:13 Method Of Arrival: Ambulatory 21:13 Acuity: MARTY 3 kl Triage Assessment: 21:16 General: Appears uncomfortable, well groomed, well developed, Behavior is calm, kl cooperative. Pain: Complains of pain in mid back area Pain currently is 10 out of 10 on a pain scale. EENT: No deficits noted. No signs and/or symptoms were reported regarding the EENT system. Neuro: No deficits noted. Cardiovascular: No deficits noted. Respiratory: No deficits noted. GI: No deficits noted. No signs and/or symptoms were reported involving the gastrointestinal system. : Reports urinary frequency. Historical: - Allergies: 21:15 No Known Allergies; kl - Home Meds: 21:15 Albuterol Inhl [Active]; amlodipine oral [Active]; Hydroxyzine Oral [Active]; kl lisinopril-hydrochlorothiazide Oral 1 tab [Active]; meloxicam Oral [Active]; Omeprazole Oral [Active]; Symbicort inhalation [Active]; Trazodone Oral [Active]; - PMHx: 21:15 Asthma; Hepatitis; Hypertension; osteoarthritis; kl - PSHx: 21:15 hernia; Shoulder; kl - Immunization history:: Adult Immunizations not up to date. - Social history:: Smoking status: Patient denies any tobacco usage or history of. Screenin:50 [facility] ED Fall Risk Assessment (Adult) History of falling in the last 3 months, mb9 including since admission No falls in past 3 months (0 pts) Confusion or Disorientation No (0 pts) Intoxicated or Sedated No (0 pts) Impaired Gait No (0 pts) Mobility Assist Device Used No (0 pt) Altered Elimination No (0 pt) Score/Fall Risk Level 0 - 2 = Low Risk Oriented to surroundings, Maintained a safe environment, Educated pt \\T\\ family on fall prevention, incl call for assistance when getting out of bed. Abuse screen: Denies threats or abuse. Nutritional screening: No deficits noted. Tuberculosis screening: No symptoms or risk factors identified. Assessment: 21:38 Reassessment: pt states "I'm having really bad pain in my kidneys and need something mb9 for the pain. It's 10/10 and feels like a sharp/stabbing pain." Jina PHOEN[place], notified. 23:19 Neuro: Level of Consciousness is awake, alert, obeys commands, Oriented to person, kl place, time, situation. Vital Signs: 21:13 BP 146 / 0; Pulse 61; Resp 16; Temp 97.9; Pulse Ox 98% on R/A; Weight 99.34 kg (R); Height 5 ft. 7 in. (170.18 cm); Pain 10/10; 21:50 BP 139 / 81; Pulse 68; Resp 16; Pulse Ox 100% on R/A; Pain 10/10; mb9 22:40 BP 139 / 94; Pulse 72; Resp 16; Pulse Ox 98% on R/A; kl 21:13 Body Mass Index 34.30 (99.34 kg, 170.18 cm) ED Course: 20:41 Patient arrived in ED. mr 20:41 Naresh Rhoades DO is Private Physician. mr 20:47 Otilio Muro MD is Attending Physician. bs3 21:01 Arm band placed on. mb9 21:01 Placed in gown. Bed in low position. Call light in reach. Side rails up X 1. Client mb9 placed on continuous cardiac and pulse oximetry monitoring. NIBP monitoring applied. 21:15 Triage completed. kl 21:25 Carey Brito BRIDGER is Primary Nurse. mb9 21:33 BMP Sent. kl 21:33 CBC with Diff Sent. kl 21:33 UA MICROSCOPIC Sent. kl 21:51 No provider procedures requiring assistance completed. Patient did not have IV access mb9 during this emergency room visit. 22:58 Naresh Rhoades DO is Referral Physician. bs3 Administered Medications: 21:49 Not Given (Other Intervention Used): Ketorolac 15 mg IVP once mb9 21:50 Drug: Ketorolac 15 mg Route: IM; Site: right deltoid; mb9 22:16 Follow up: Response: No adverse reaction mb9 23:17 Follow up: Response: No adverse reaction; Marked relief of symptoms kl 21:56 Not Given (Physician Discretion): cefPODOXime 100 mg PO once kl 22:00 Drug: KeFLEX (cephalexin) 500 mg Route: PO; mb9 23:17 Follow up: Response: No adverse reaction kl Medication: 21:51 VIS not applicable for this client. mb9 Outcome: 22:59 Discharge ordered by . bs3 23:18 Discharged to home ambulatory. kl 23:18 Condition: stable 23:18 Discharge instructions given to patient, Instructed on discharge instructions, follow up and referral plans. medication usage, Demonstrated understanding of instructions, follow-up care, medications, Prescriptions given X 1. 23:19 Patient left the ED. kl Signatures: Gerri Bar RN RN kl Rivera, Mary mr Stein, Brandon, MD MD bs3 Carey Brito RN RN mb9 Corrections: (The following items were deleted from the chart) 21:16 21:15 Allergies: Aspirin; kl kl
[2022-11-19 23:37] VITALS: TEMP 97.9
[2022-11-19 23:39] VITALS: BP 139/94; O2SAT 98
== END 2022-11-19 23:19 | disposition home or self-care (01) ==
LOC: ER 20:37
DX: N39.0 Urinary tract infection, site not specified (principal); I10 Essential (primary) hypertension
CPT/HCPCS: 36415; 80048; 81003; 81015; 85025

== ENCOUNTER 2022-11-28 19:15 | Emergency (ER) | payer BC ==
--- OUTSIDE RECORDS SUMMARY | 2022-11-28 19:20 | XMS REPORT | Continuity of Care Document ---
:1960 Author Organization [facility] t Address [address] [place] [address] Care Team Providers Name Role Phone Naresh Rhoades Attending Clinician Unavailable Janet Nuñez Attending Clinician Unavailable PRICILLA CARRINGTON Attending Clinician Unavailable Payers Payer Name Policy Type Policy Number Effective Date Expiration Date S ource [employer] 6 [id number] 2020 [facility] t Blue Shield of 00:00:00 - [facility] [id number] 2014 00:00:00 Problems Condition Condition Condition Status Onset Resolution Last Treating Co mments Source Name Details Category Date Date Treatment Clinician Date Calcaneal Heel spur, Problem Co mmon spur left Spirit - [facility] [id number] Autoimmune Problem Com mon thyroiditi Spirit s - [facility] [id number] Other Problem Common specified Spirit hypothyroi - [facility] dism [facility] [id number] Atopic Problem Common dermatitis Spirit , - [facility] unspecifie [facility] [id number] Body mass Problem Com mon index Spirit [BMI] - [facility] 37.0-37.9, [facility] [id number] Morbid Problem Commo n 9104 (severe) Spirit obesity - [facility] due to [facility] [id number] Bladder Problem Commo n wall Spirit thickening - [facility] [id number] Bladder Problem Commo n diverticul [facility] Benign BPH Problem Common prostatic (benign Spirit hyperplasi prostatic - C HI a hyperplasi St a) [facility] Insomnia Insomnia Problem Commo n [facility] Gastroesop GERD Problem Commo n hageal (gastroeso Spirit reflux [facility] disease reflux St disease) [facility] Polyarthra Polyarthra Problem C ommon lgia lgia [facility] Obese BMI Problem Common class I 33.0-33.9, Spiri t adult [facility] Benign Benign Problem Common essential essential Spir it hypertensi hypertensi [facility] on on [facility] Asthma Asthma Problem Common [facility] Obesity Other Problem Common obesity [facility] Chronic Hep C w/o Problem Commo n hepatitis coma, Spirit C chronic [facility] Hyperlipid HLD Problem Commo n aemia (hyperlipi Spirit demia) [facility] Allergies, Adverse Reactions, Alerts Allergy Allergy Status Severity Reaction(s) Onset Inactive Treating Comm ents Source Name Type Date Date Clinician NO KNOWN Drug Active Univers ALLERGIE Class ity of S [facility] Social History Social Habit Start Date Stop Date Quantity Comments Source History of Tobacco Use Co mmon [facility] Sex Assigned At Com [facility] Smoking Status Start Date Stop Date Source Former Smoker 2022-11-04 00:00:00 2022-11-04 00:00:00 Common S [facility] Medications Ordered Filled Start Stop [...] Commen ts Source Name Name Ros [facility] 2021-08-15 Completed [facility] 16:24:00 - [facility] 2021-08-15 Completed [facility] 16:24:00 [facility] 2021-08-15 Completed [facility] 16:24:00 [facility] 2021-08-15 Completed [facility] 2021-08-15 Completed [facility] 16:24:00 [facility] Afluria [facility] 2021-08-15 Completed [facility] 16:24:00 - [facility] Afluria Afluria 2021-08-15 Completed [facility] 16:24:00 - [facility] Afluria Afluria 2021-08-15 Completed [facility] 16:24:00 - [facility] Afluria Afluria 2021-08-15 Completed [facility] 16:24:00 - [facility] Afluria Afluria 2021-08-15 Completed [facility] 16:24:00 - [facility] Afluria Afluria 2021-08-15 Completed [facility] 16:24:00 [facility] Afluria Afluria 2021-08-15 Completed [facility] 16:24:00 - [facility] Afluria Afluria 2021-08-15 Completed [facility] 16:24:00 - [facility] Afluria Afluria 2021-08-15 Completed [facility] 16:24:00 - [facility] Afluria Afluria 2021-08-15 Completed [facility] 16:24:00 [facility] Afluria Afluria 2021-08-15 Completed [facility] 16:24:00 [facility] Pfizer COVID-19 Pfizer COVID-19 2021-06-14 Completed Comm on Spirit Vaccine Vaccine 16:31:00 - [facility] Pfizer COVID-19 Pfizer COVID-19 2021-06-14 Completed Comm on Spirit Vaccine Vaccine 16:31:00 [facility] Pfizer COVID-19 Pfizer COVID-19 2021-06-14 Completed Comm on Spirit Vaccine Vaccine 16:31:00 [facility] Pfizer COVID-19 Pfizer COVID-19 2021-06-14 Completed Comm on [facility] Vaccine Vaccine 16:31:00 [facility] Pfizer COVID-19 Pfizer COVID-19 2021-06-14 Completed Comm on [facility] Vaccine Vaccine 16:31:00 [facility] Pfizer COVID-19 Pfizer COVID-19 2021-06-14 Completed Comm on [facility] Vaccine Vaccine 16:31:00 [facility] Pfizer COVID-19 Pfizer COVID-19 2021-06-14 Completed Comm on [facility] Vaccine Vaccine 16:31:00 [facility] Pfizer COVID-19 Pfizer COVID-19 2021-06-14 Completed Comm on [facility] Vaccine Vaccine 16:31:00 [facility] Pfizer COVID-19 Pfizer COVID-19 2021-06-14 Completed Comm on [facility] Vaccine Vaccine 16:31:00 [facility] Pfizer COVID-19 Pfizer COVID-19 2021-06-14 Completed Comm on [facility] Vaccine Vaccine 16:31:00 [facility] Pfizer COVID-19 Pfizer COVID-19 2021-06-14 Completed Comm on [facility] Vaccine Vaccine 16:31:00 [facility] Pfizer COVID-19 Pfizer COVID-19 2021-06-14 Completed Comm on Spirit Vaccine Vaccine 16:31:00 - [facility] Pfizer COVID-19 Pfizer COVID-19 2021-06-14 Completed Comm on Spirit Vaccine Vaccine 16:31:00 - [facility] Pfizer COVID-19 Pfizer COVID-19 2021-06-14 Completed Comm on [facility] Vaccine Vaccine 16:31:00 - [facility] Pfizer COVID-19 Pfizer COVID-19 2021-06-14 Completed Comm on [facility] Vaccine Vaccine 16:31:00 - [facility] Pfizer COVID-19 Pfizer COVID-19 2021-06-14 Completed Comm on [facility] Vaccine Vaccine 16:31:00 - [facility] Pfizer COVID-19 Pfizer COVID-19 2021-01-11 Completed Comm on [facility] Vaccine Vaccine 16:30:00 [facility] Pfizer COVID-19 Pfizer COVID-19 2021-01-11 Completed Comm on [facility] Vaccine Vaccine 16:30:00 [facility] Pfizer COVID-19 Pfizer COVID-19 2021-01-11 Completed Comm on Spirit Vaccine Vaccine 16:30:00 - [facility] Pfizer COVID-19 Pfizer COVID-19 2021-01-11 Completed Comm on [facility] Vaccine Vaccine 16:30:00 - [facility] Pfizer COVID-19 Pfizer COVID-19 2021-01-11 Completed Comm on Spirit Vaccine Vaccine 16:30:00 [facility] Pfizer COVID-19 Pfizer COVID-19 2021-01-11 Completed Comm on [facility] Vaccine Vaccine 16:30:00 [facility] Pfizer COVID-19 Pfizer COVID-19 2021-01-11 Completed Comm on [facility] Vaccine Vaccine 16:30:00 [facility] Pfizer COVID-19 Pfizer COVID-19 2021-01-11 Completed Comm on [facility] Vaccine Vaccine 16:30:00 [facility] Pfizer COVID-19 Pfizer COVID-19 2021-01-11 Completed Comm on [facility] Vaccine Vaccine 16:30:00 [facility] Pfizer COVID-19 Pfizer COVID-19 2021-01-11 Completed Comm on [facility] Vaccine Vaccine 16:30:00 [facility] Pfizer COVID-19 Pfizer COVID-19 2021-01-11 Completed Comm on [facility] Vaccine Vaccine 16:30:00 - [facility] Pfizer COVID-19 Pfizer COVID-19 2021-01-11 Completed Comm on [facility] Vaccine Vaccine 16:30:00 - [facility] Pfizer COVID-19 Pfizer COVID-19 2021-01-11 Completed Comm on [facility] Vaccine Vaccine 16:30:00 [facility] Pfizer COVID-19 Pfizer COVID-19 2021-01-11 Completed Comm on [facility] Vaccine Vaccine 16:30:00 [facility] Pfizer COVID-19 Pfizer COVID-19 2021-01-11 Completed Comm on [facility] Vaccine Vaccine 16:30:00 - [facility] Pfizer COVID-19 Pfizer COVID-19 2021-01-11 Completed Comm on [facility] Vaccine Vaccine 16:30:00 [facility] Pfizer COVID-19 Pfizer COVID-19 2020-12-21 Completed Comm on [facility] Vaccine Vaccine 16:30:00 [facility] Pfizer COVID-19 Pfizer COVID-19 2020-12-21 Completed Comm on [facility] Vaccine Vaccine 16:30:00 - [facility] Pfizer COVID-19 Pfizer COVID-19 2020-12-21 Completed Comm on [facility] Vaccine Vaccine 16:30:00 [facility] Pfizer COVID-19 Pfizer COVID-19 2020-12-21 Completed Comm on [facility] Vaccine Vaccine 16:30:00 [facility] Pfizer COVID-19 Pfizer COVID-19 2020-12-21 Completed Comm on [facility] Vaccine Vaccine 16:30:00 [facility] Pfizer COVID-19 Pfizer COVID-19 2020-12-21 Completed Comm on [facility] Vaccine Vaccine 16:30:00 [facility] Pfizer COVID-19 Pfizer COVID-19 2020-12-21 Completed Comm on [facility] Vaccine Vaccine 16:30:00 [facility] Pfizer COVID-19 Pfizer COVID-19 2020-12-21 Completed Comm on [facility] Vaccine Vaccine 16:30:00 [facility] Pfizer COVID-19 Pfizer COVID-19 2020-12-21 Completed Comm on [facility] Vaccine Vaccine 16:30:00 [facility] Pfizer COVID-19 Pfizer COVID-19 2020-12-21 Completed Comm on [facility] Vaccine Vaccine 16:30:00 - [facility] Pfizer COVID-19 Pfizer COVID-19 2020-12-21 Completed Comm on [facility] Vaccine Vaccine 16:30:00 [facility] Pfizer COVID-19 Pfizer COVID-19 2020-12-21 Completed Comm on [facility] Vaccine Vaccine 16:30:00 - [facility] Pfizer COVID-19 Pfizer COVID-19 2020-12-21 Completed Comm on [facility] Vaccine Vaccine 16:30:00 - [facility] Pfizer COVID-19 Pfizer COVID-19 2020-12-21 Completed Comm on [facility] Vaccine Vaccine 16:30:00 - [facility] Pfizer COVID-19 Pfizer COVID-19 2020-12-21 Completed Comm on [facility] Vaccine Vaccine 16:30:00 - [facility] Pfizer COVID-19 Pfizer COVID-19 2020-12-21 Completed Comm on [facility] Vaccine Vaccine 16:30:00 [facility] Vital Signs Vital Name Observation Time Observation Value Comments Source height 2022-11-04 10:00:00 65 [in_i] [facility] weight 2022-11-04 10:00:00 216 [lb_av] [facility] bmi 2022-11-04 10:00:00 35.94 kg/m2 [facility] height 2022-09-26 11:30:00 65 [in_i] [facility] weight 2022-09-26 11:30:00 222 [lb_av] [facility] temperature 2022-09-26 11:30:00 98 [degF] [facility] bmi 2022-09-26 11:30:00 36.94 kg/m2 [facility] blood pressure 2022-09-26 11:30:00 132 mm[Hg] Common [facility] - systolic [facility] blood pressure 2022-09-26 11:30:00 76 mm[Hg] Common [facility] - diastolic [facility] height 2022-08-04 09:50:00 65 [in_i] Common S [facility] weight 2022-08-04 09:50:00 222.6 [lb_av] Common [facility] temperature 2022-08-04 09:50:00 97.7 [degF] Common [facility] bmi 2022-08-04 09:50:00 37.04 kg/m2 [facility] 2022-08-04 09:50:00 97 % Common S [facility] respiratory rate 2022-08-04 09:50:00 18 /min Comm on [facility] blood pressure 2022-08-04 09:50:00 142 mm[Hg] Common [facility] - systolic [facility] blood pressure 2022-08-04 09:50:00 78 mm[Hg] Common [facility] - diastolic [facility] height 2022-06-27 10:10:00 65 [in_i] Common S [facility] weight 2022-06-27 10:10:00 231 [lb_av] Common S [facility] temperature 2022-06-27 10:10:00 97.9 [degF] [facility] bmi 2022-06-27 10:10:00 38.44 kg/m2 [facility] S [facility] oximetry 2022-06-27 10:10:00 94 % [facility] 2022-06-27 10:10:00 18 /min Comm on [facility] blood pressure 2022-06-27 10:10:00 135 mm[Hg] [facility] - systolic [facility] blood pressure 2022-06-27 10:10:00 76 mm[Hg] [facility] - diastolic [facility] height 2022-03-28 07:50:00 67 [in_i] Common S pirit [facility] weight 2022-03-28 07:50:00 224 [lb_av] Common S pirit - [facility] temperature 2022-03-28 07:50:00 98 [degF] Common S pirit - [facility] bmi 2022-03-28 07:50:00 35.08 kg/m2 Common S pirit - [facility] blood pressure 2022-03-28 07:50:00 130 mm[Hg] [facility] - systolic [facility] blood pressure 2022-03-28 07:50:00 76 mm[Hg] [facility] - diastolic [facility] height 2021-11-29 08:00:00 67 [in_i] [facility] weight 2021-11-29 08:00:00 226 [lb_av] Common S pirit [facility] temperature 2021-11-29 08:00:00 97.9 [degF] [facility]mi 2021-11-29 08:00:00 35.39 kg/m2 Common S pirit - [facility] blood pressure 2021-11-29 08:00:00 132 mm[Hg] [facility] - systolic [facility] blood pressure 2021-11-29 08:00:00 76 mm[Hg] [facility] - diastolic [facility] height 2021-08-15 16:00:00 67 [in_i] Common S pirit [facility] weight 2021-08-15 16:00:00 223.0 [lb_av] Common [facility] - [facility] temperature 2021-08-15 16:00:00 97.1 [degF] Common S pirit [facility] bmi 2021-08-15 16:00:00 34.92 kg/m2 Common S [facility] oximetry 2021-08-15 16:00:00 96 % [facility] 2021-08-15 16:00:00 18 /min Comm on [facility] blood pressure 2021-08-15 16:00:00 138 mm[Hg] [facility] - systolic [facility] blood pressure 2021-08-15 16:00:00 70 mm[Hg] Common [facility] - diastolic [facility] height 2021-07-12 08:00:00 67 [in_i] Common [facility] weight 2021-07-12 08:00:00 232 [lb_av] Common [facility] temperature 2021-07-12 08:00:00 97.4 [degF] Common [facility] bmi 2021-07-12 08:00:00 36.33 kg/m2 [facility] blood pressure 2021-07-12 08:00:00 128 mm[Hg] Common [facility] - systolic [facility] blood pressure 2021-07-12 08:00:00 82 mm[Hg] Common [facility] - diastolic [facility] Procedures This patient has no known procedures. Encounters Start End Encounter Admission Attending Care Care Encounter Source Date/Time Date/Time Type Type Clinicians Facility Department ID 2022-11-04 Outpatient Rhoades, STLMLC STLMLC [id number] Common 08:11:01 Naresh [id number] [facility] 2022-09-25 Outpatient Rhoades, STLMLC STLMLC [id number] Common 10:19:01 Naresh 87610 [facility] 2021-11-20 Outpatient Rhoades, STLMLC STLMLC [id number] Common 14:04:32 Naresh 07905 [facility] 2021-11-20 Outpatient Rhoades, STLMLC STLMLC [id number] Common 13:50:27 Naresh [id number] [facility] 2021-11-20 Outpatient Rhoades, STLMLC STLMLC [id number] Common 13:41:58 Naresh [id number] [facility] 2021-11-20 Outpatient Rhoades, STLMLC STLMLC [id number] Common 13:09:12 Naresh 10904 [facility] 2021-11-20 Outpatient Rhoades, STLMLC STLMLC [id number] Common 13:07:29 Naresh 10741 [facility] 2021-11-20 Outpatient Rhoades, STLMLC STLMLC [id number] Common 13:05:13 [facility] [address]89 [facility] 2021-11-20 Outpatient Rhoades, STLMLC STLMLC [id number] Common 13:04:48 [facility] [id number] [facility] 2021-11-20 Outpatient STLMLC STLMLC [id number] Common 12:44:19 [id number] [facility] 2021-11-20 Outpatient Joaquin, STLMLC STLMLC [id number] Common 12:12:37 Janet [id number] [facility] 2021-11-20 Outpatient Joaquin, STLMLC STLMLC [id number] Common 12:12:16 Janet [id number] [facility] 2021-11-20 Outpatient Joaquin, STLMLC STLMLC [id number] Common 12:11:47 Janet [id number] [facility] 2021-11-20 Outpatient Joaquin, STLMLC STLMLC [id number] Common 12:09:18 Janet [id number] [facility] 2021-11-20 Outpatient Joaquin, STLMLC STLMLC [id number] Common 12:07:34 Janet 58225 [facility] 2021-11-20 Outpatient Joaquin, STLMLC STLMLC [id number] Common 12:06:22 Janet 84215 [facility] 2021-11-20 Outpatient Joaquin, STLMLC STLMLC [id number] Common 12:02:18 Janet [id number] [facility] 2021-11-20 Outpatient Joaquin, STLMLC STLMLC [id number] Common 12:00:36 Janet [id number] [facility] 2022-11-04 2022-11-04 (TEL) STLMLC STLMLC [id number] Co mmon 00:00:00 00:00:00 [facility] 2022-11-04 2022-11-04 OFFICE STLMLC STLMLC [id number] Co mmon 00:00:00 00:00:00 VISIT EST Spir it PT LEVEL 3 - [facility] 2022-09-26 2022-09-26 OFFICE STLMLC STLMLC [id number] Co mmon 00:00:00 00:00:00 VISIT Spirit ESTAB PT - [facility] LEVEL 4 [facility] 2022-09-24 2022-09-24 OFFICE STLMLC STLMLC [id number] Co mmon 00:00:00 00:00:00 VISIT EST Spir it PT LEVEL 3 - [facility] 2022-09-23 2022-09-23 (TEL) STLMLC STLMLC [id number] Co mmon 00:00:00 00:00:00 [facility] 2022-09-12 2022-09-12 (TEL) STLMLC STLMLC [id number] Co mmon 00:00:00 00:00:00 [facility] 2022-09-09 2022-09-09 (TEL) STLMLC STLMLC [id number] Co mmon 00:00:00 00:00:00 [facility] 2022-08-04 2022-08-04 (HOSP F/U) STLMLC STLMLC [id number] Common 00:00:00 00:00:00 Hospital Spiri t Follow Up - [facility] 2022-08-01 2022-08-01 (TEL) STLMLC STLMLC [id number] Co mmon 00:00:00 00:00:00 [facility] 2022-08-01 2022-08-01 (TEL) STLMLC STLMLC [id number] Co mmon 00:00:00 00:00:00 [facility] 2022-06-27 2022-06-27 (WELLNESS) STLMLC STLMLC [id number] Common 00:00:00 00:00:00 Wellness Spiri t Visit - [facility] 2022-03-28 2022-03-28 OFFICE STLMLC STLMLC [id number] Co mmon 00:00:00 00:00:00 VISIT Spirit ESTAB PT - [facility] LEVEL 4 [facility] 2021-11-29 2021-11-29 OFFICE STLMLC STLMLC [id number] Co mmon 00:00:00 00:00:00 VISIT [facility] PT - CHI LEVEL 4 [facility] 2021-11-11 2021-11-11 (TEL) STLMLC STLMLC [id number] Co mmon 00:00:00 00:00:00 [facility] 2021-08-15 2021-08-15 OFFICE STLMLC STLMLC [id number] Co mmon 00:00:00 00:00:00 VISIT EST Spir it PT LEVEL 3 - [facility] 2021-08-15 2021-08-15 (TEL) STLMLC STLMLC [id number] Co mmon 00:00:00 00:00:00 [facility] 2021-07-19 2021-07-19 (TEL) STLMLC STLMLC [id number] Co mmon 00:00:00 00:00:00 [facility] 2021-07-12 2021-07-12 OFFICE STLMLC STLMLC [id number] Co mmon 00:00:00 00:00:00 VISIT [facility] PT - CHI LEVEL 4 [facility] 2021-06-18 2021-06-18 Outpatient STLMLC STLMLC [id number] Common 00:00:00 00:00:00 [facility] 2021-06-18 2021-06-18 Outpatient STLMLC STLMLC [id number] Common 00:00:00 00:00:00 [facility] 2021-06-14 2021-06-14 Outpatient STLMLC STLMLC [id number] Common 00:00:00 00:00:00 [facility] 2021-03-12 2021-03-12 Outpatient STLMLC STLMLC [id number] Common 00:00:00 00:00:00 [facility] 2021-01-17 2021-01-17 Outpatient STLMLC STLMLC [id number] Common 00:00:00 00:00:00 [facility] 2021-01-08 2021-01-08 Outpatient Nish [facility] [id number] Univers 14:00:00 14:00:00 PRICILLA [id number] [facility] 2021-01-08 2021-01-08 Outpatient Nish [facility] [id number] Univers 14:00:00 14:00:00 PRICILLA [facility] 2020-12-18 2020-12-18 Outpatient Nish [facility] [id number] Univers 16:30:00 16:30:00 PRICILLA [facility] 2020-12-18 2020-12-18 Outpatient Nish [facility] [id number] Univers 16:30:00 16:30:00 PRICILLA [id number] [facility] 2020-10-05 2020-10-05 Outpatient STLMLC STLMLC [id number] Common 00:00:00 00:00:00 [facility] 2020-09-14 2020-09-14 Outpatient STLMLC STLMLC [id number] Common 00:00:00 00:00:00 [facility] 2020-08-31 2020-08-31 Outpatient STLMLC STLMLC [id number] Common 00:00:00 00:00:00 [facility] 2020-08-28 2020-08-28 Outpatient STLMLC STLMLC [id number] Common 00:00:00 00:00:00 [facility] 2020-08-24 2020-08-24 Outpatient STLMLC STLMLC [id number] Common 00:00:00 00:00:00 [facility] Results Test Description Test Time Test Comments Results Result Comments Source STREP A RAPID 2022-11-04 Result 00:00:00 POC, COVID 19 POC, COVID 19 Antigen + Flu by Antigen + Flu Naida by Naida
--- NOTE | 2022-11-28 20:01 | RAD REPORT ---
EXAM DESCRIPTION: Derek Single View11/28/2022 7:52 pm CLINICAL HISTORY: Headache, dizziness and weakness COMPARISON: October 2022 FINDINGS: The lungs appear clear of acute infiltrate. The heart is normal size IMPRESSION: No acute abnormalities displayed
[2022-11-28] MEDS ORDERED: KETOROLAC 30 MG/ML INJ ONE (20:07)
[2022-11-28] MEDS ORDERED: NA CHLORIDE 0.9% 1,000 ML ONE (20:07)
[2022-11-28] MEDS ORDERED: ACETAMINOPHEN 500 MG TAB ONE (20:07)
--- NOTE | 2022-11-28 20:32 | RAD REPORT ---
EXAM DESCRIPTION: CT - Head Brain Wo Cont - 11/28/2022 8:21 pm CLINICAL HISTORY: Dizziness TECHNIQUE: Computed axial tomography of the head was obtained. IV contrast was not requested. All CT scans are performed using dose optimization technique as appropriate and may include automated exposure control or mA/KV adjustment according to patient size. FINDINGS: An intracranial bleed is not seen . The ventricles are normal in caliber. Mild enlargement of the pituitary gland No significant hypodense areas within the brain visualized No extra-axial fluid collection is noted. Fluid within the sinuses/ mastoids is not seen. IMPRESSION: Mild enlargement of the pituitary gland. Nonemergent MRI recommended for further evaluat ion
[2022-11-28 20:44] LABS: ALT/SGPT 30 U/L (16-61); AST/SGOT 21 U/L (15-37); Albumin 3.6 g/dL (3.4-5.0); Alkaline Phosphatase 90 U/L (45-117); BUN Blood Urea Nitrogen 15 mg/dL (7-18); Bicarbonate 32 mmol/L (21-32); Bilirubin Total 0.2 mg/dL (0.2-1.0); Glomerular Filtration Rate 86 ml/min (=/>90); Glucose Level 94 mg/dL (74-106); Lymphocytes % 32.8 % (15.3-44.8); MCV 89.4 fL (80-100); MPV 9.5 fL (7.6-11.3); NT PRO-BNP 8 pg/mL (<125); Potassium 3.8 mmol/L (3.5-5.1); Protein, Total 7.5 g/dL (6.4-8.2); RBC Red Blood Cell Count 4.36 M/uL (4.33-5.43); Sodium Level 141 mmol/L (136-145); Troponin High Sensitivity 10.3 pg/mL (<58.9)
[2022-11-28 20:45] LABS: Bilirubin Direct < 0.1 mg/dL (0-0.2)
[2022-11-28 21:11] LABS: SARS-COV-2 RT PCR NEGATIVE (NEGATIVE)
--- NOTE | 2022-11-28 21:24 | ER ---
Nurse's Notes [facility] Name: Cristopher Larson Age: 62 yrs Sex: Male : 1960 Arrival Date: 11/28/2022 Time: 19:17 Bed 3 Private MD: Naresh Rhoades Diagnosis: Muscle weakness (generalized);Dizziness and giddiness Presentation: 11/28 19:21 Chief complaint: Patient states: Headache pain of that radiates to front with dizziness pf1 and losing focus,onset 1 week. Coronavirus screen: Client denies travel out of the [place] in the last 14 days. At this time, the client does not indicate any symptoms associated with coronavirus-19. Ebola Screen: Patient negative for fever greater than or equal to 101.5 degrees Fahrenheit, and additional compatible Ebola Virus Disease symptoms. Initial Sepsis Screen: Does the patient meet any 2 criteria? No. Patient's initial sepsis screen is negative. Does the patient have a suspected source of infection? No. Patient's initial sepsis screen is negative. Risk Assessment: Do you want to hurt yourself or someone else? Patient reports no desire to harm self or others. Onset of symptoms was November 22, 2022. 19:21 Method Of Arrival: Ambulatory pf1 19:21 Acuity: MARTY 3 pf1 Historical: - Allergies: 19:27 No Known Allergies; pf1 Screenin:17 Abuse screen: Denies threats or abuse. Denies injuries from another. Nutritional aa9 screening: No deficits noted. Tuberculosis screening: No symptoms or risk factors identified. Assessment: 20:17 General: Appears in no apparent distress. Behavior is calm, cooperative. Pain: aa9 Complains of pain in forehead Also complains of inability to concentrate. Neuro: Level of Consciousness is awake, alert, obeys commands, Oriented to person, place, time, situation. Respiratory: Airway is patent Respiratory effort is even, unlabored. 21:10 Reassessment: Patient appears in no apparent distress at this time. Patient and/or jb4 family updated on plan of care and expected duration. Pain level reassessed. Patient is alert, oriented x 3, equal unlabored respirations, skin warm/dry/pink. attempted to call report twice with no answer. 21:39 Reassessment: Patient appears in no apparent distress at this time. Patient and/or jb4 family updated on plan of care and expected duration. Pain level reassessed. Patient is alert, oriented x 3, equal unlabored respirations, skin warm/dry/pink. Vital Signs: 19:21 BP 140 / 89; Pulse 69; Resp 18; Temp 98.2; Pulse Ox 98% ; Weight 99.79 kg; Height 5 ft. pf1 7 in. (170.18 cm); Pain 8/10; 19:21 Body Mass Index 34.46 (99.79 kg, 170.18 cm) pf1 ED Course: 19:17 Patient arrived in ED. as 19:17 Naresh Rhoades DO is Private Physician. as 19:21 Lazaro Pressley MD is Attending Physician. jr11 19:27 Triage completed. pf1 19:54 XRAY Chest (1 view) In Process Unspecified. EDMS 20:10 Inserted saline lock: 20 gauge in right antecubital area, using aseptic technique. aa9 Blood collected. 20:16 COVID-19/FLU A+B/RSV Sent. aa9 20:17 Patient has correct armband on for positive identification. Bed in low position. Call aa9 light in reach. Side rails up X2. Adult w/ patient. 20:23 CT Head Brain wo Cont In Process Unspecified. EDMS 20:35 Rocio García, RN is Primary Nurse. aa9 21:39 No provider procedures requiring assistance completed. IV discontinued, intact, jb4 bleeding controlled, No redness/swelling at site. Pressure dressing applied. Administered Medications: 20:16 Drug: NS 0.9% 1000 ml Route: IV; Rate: 1000 ml; Site: right antecubital; aa9 20:16 Drug: Tylenol 1000 mg Route: PO; aa9 20:16 Drug: Ketorolac 10 mg 10 mg Route: IVP; Site: right antecubital; aa9 Outcome: 21:23 Discharge ordered by . jr11 21:39 Discharged to home via wheelchair, with family. jb4 21:39 Condition: stable 21:39 Discharge instructions given to patient, family, Instructed on discharge instructions, follow up and referral plans. Demonstrated understanding of instructions, follow-up care. 21:40 Patient left the ED. jb4 Signatures: Dispatcher [employer] EDMS Nona Ibarra James, RN RN jb4 Lazaro Pressley MD MD jr11 Rocio García, RN RN aa9 Krysten whitman RN RN pf1
--- NOTE | 2022-11-28 21:24 | EDPHYS ---
Physician Documentation [facility] Name: Cristopher Black Age: 62 yrs Sex: Male : 1960 Arrival Date: 11/28/2022 Time: 19:17 Bed 3 Private MD: Jf [facility] ED Physician Lazaro Pressley HPI: 11/28 19:28 This 62 yrs old Black Male presents to ER via Ambulatory with complaints of Headache, jr11 Doesn't Feel Right. 19:28 The patient complains of pain to the top of head and left frontal area. The patient jr11 describes the headache as aching. Onset: The symptoms/episode began/occurred 1 week(s) ago. Severity of symptoms: At its worst the pain was moderate, in the emergency department the pain is unchanged. Patient is a 62-year-old gentleman who comes in stating that over the last week he has not been feeling well, feels that he cannot focus well, states that he has been getting good sleep. Patient denies a headache but feels like there is something painful inside his scalp. Patient states this pain is moderate, nothing makes it better or worse, denies any focal neurologic deficit, symptoms have been going on greater than 8 hours. Denies worst headache denies thunderclap headache, as a matter of fact he said he does not have a headache currently. Denies exertional pain, no tearing pain, does not radiate to the back, does not cross the diaphragm. No diaphoresis, no vomiting. No syncope or near-syncope. . Historical: - Allergies: 19:27 No Known Allergies; pf1 ROS: 19:28 All other systems are negative. jr11 Exam: 19:28 Constitutional: This is a well developed, well nourished patient who is awake, alert, jr11 and in no acute distress. Head/Face: Normocephalic, atraumatic. Eyes: Extra-ocular motions intact. Lids and lashes normal. Conjunctiva and sclera are non-icteric and not injected. Cornea within normal limits. Periorbital areas with no swelling, redness, or edema. ENT: Nares patent. No nasal discharge, no septal abnormalities noted. Oropharynx with no redness, swelling, or masses, exudates, or evidence of obstruction, uvula midline. Mucous membranes moist. Neck: Trachea midline, no thyromegaly or masses palpated, and no cervical lymphadenopathy. Supple, full range of motion without nuchal rigidity, or vertebral point tenderness. No Meningismus. Chest/axilla: Normal chest wall appearance and motion. Nontender with no deformity. No lesions are appreciated. Cardiovascular: Regular rate and rhythm with a normal S1 and S2. No gallops, murmurs, or rubs. Normal PMI, no JVD. No pulse deficits. Respiratory: Lungs have equal breath sounds bilaterally, clear to auscultation and percussion. No rales, rhonchi or wheezes noted. No increased work of breathing, no retractions or nasal flaring. Abdomen/GI: Soft, non-tender, with normal bowel sounds. No distension or tympany. No guarding or rebound. No evidence of tenderness throughout. Back: No spinal tenderness. No costovertebral tenderness. Full range of motion. Skin: Warm, dry with normal turgor. Normal color with no rashes, no lesions, and no evidence of cellulitis. MS/ Extremity: Pulses equal, no cyanosis. Neurovascular intact. Full, normal range of motion. Neuro: Awake and alert, GCS 15, oriented to person, place, time, and situation. No gross motor or sensory deficits. NIHSS = 0 Vital Signs: 19:21 BP 140 / 89; Pulse 69; Resp 18; Temp 98.2; Pulse Ox 98% ; Weight 99.79 kg; Height 5 ft. pf1 7 in. (170.18 cm); Pain 8/10; 19:21 Body Mass Index 34.46 (99.79 kg, 170.18 cm) pf1 MDM: 19:26 Patient medically screened. jr11 19:28 Differential diagnosis: migraine, sinusitis, trigeminal neuralgia, vasomotor headache, jr11 generalized weakness, electrolyte abnormality, atypical acs less likely, no CP or dyspnea. Data reviewed: vital signs, nurses notes. 21:20 Consideration of Admission/Observation Escalation of care including jr11 admission/observation considered. labs benign, patient feeling better. I considered the following discharge prescriptions or medication management in the emergency department Pain Medications: At this time, prescription pain medications are not recommended. Independent interpretation of the following test(s) in the Emergency Department CT Scan: My interpretation is no bleed, but will need MRI patient understands that in our imagining done today there is an incidental finding of a enlarged pituitary. Patient understands it is necessary to follow up with PCP for further surveillance and management. No acute intervention indicated. . 11/28 19:28 Order name: Basic Metabolic Panel; Complete Time: 21:18 11/28 19:28 Order name: CBC with Diff; Complete Time: 21:18 11/28 19:28 Order name: LFT's; Complete Time: 21:18 11/28 19:28 Order name: NT PRO-BNP; Complete Time: 21:18 11/28 19:28 Order name: Troponin HS; Complete Time: 21:18 11/28 19:28 Order name: COVID-19/FLU A+B/RSV; Complete Time: 21:18 11/28 19:28 Order name: XRAY Chest (1 view); Complete Time: 20:04 11/28 19:28 Order name: EKG; Complete Time: 19:28 11/28 19:28 Order name: Cardiac monitoring; Complete Time: 20:16 11/28 19:28 Order name: EKG - Nurse/Tech; Complete Time: 21:39 11/28 20:11 Order name: CT Head Brain wo Cont; Complete Time: 20:34 11/28 19:28 Order name: IV Saline Lock; Complete Time: 20:16 11/28 19:28 Order name: Labs collected and sent; Complete Time: 20:16 11/28 19:28 Order name: O2 Per Protocol; Complete Time: 20:16 11/28 19:28 Order name: O2 Sat Monitoring; Complete Time: 20:17 Administered Medications: 20:16 Drug: NS 0.9% 1000 ml Route: IV; Rate: 1000 ml; Site: right antecubital; aa9 20:16 Drug: Tylenol 1000 mg Route: PO; aa9 20:16 Drug: Ketorolac 10 mg 10 mg Route: IVP; Site: right antecubital; aa9 Disposition Summary: 11/28/22 21:23 Discharge Ordered Location: Home [facility] Condition: Stable jr Diagnosis - Muscle weakness (generalized) jr11 - Dizziness and giddiness jr11 Followup: jr11 - With: Private Physician - When: 2 - 3 days - Reason: Re-evaluation by your physician Discharge Instructions: - Discharge Summary Sheet jr11 - Dizziness jr11 - Weakness jr11 Forms: - Medication Reconciliation Form jr11 - Thank You Letter jr11 - Antibiotic Education jr11 - Prescription Opioid Use jr11 Signatures: Dispatcher [employer] Lazaro Carroll MD MD jr11 Rocio García, RN RN aa9 Krysten whitman RN RN pf1
[2022-11-28 22:25] VITALS: BP 140/89; TEMP 98.2; O2SAT 98
== END 2022-11-28 21:40 | disposition home or self-care (01) ==
LOC: ER 19:15
DX: M62.81 Muscle weakness (generalized) (principal); R42 Dizziness and giddiness; R51.9 Headache, unspecified; Z20.822 Contact with and (suspected) exposure to COVID-19
CPT/HCPCS: 85025; 80048; 36415; 80076; 84484; 83880; 0241U; 70450; 71045; 96374; 99284; J7030; 93005

== ENCOUNTER 2023-08-02 15:36 | Emergency (ER) | payer BC ==
--- OUTSIDE RECORDS SUMMARY | 2023-08-02 15:42 | XMS REPORT | Continuity of Care Document ---
:1960 Author Organization [facility] t Address [address] [place] [address] Care Team Providers Name Role Phone Naresh Rhoades Attending Clinician Unavailable Janet Nuñez Attending Clinician Unavailable PRICILLA CARRINGTON Attending Clinician Unavailable Payers Payer Name Policy Type Policy Number Effective Date Expiration Date S ource [employer] 6 [id number] 2020 Common Spiri t Blue Shield of 00:00:00 - [facility] [id number] 2014 00:00:00 Problems Condition Condition Condition Status Onset Resolution Last Treating Co mments Source Name Details Category Date Date Treatment Clinician Date Calcaneal Heel spur, Problem Co mmon spur left Spirit - [facility] [id number] Autoimmune Problem Com mon thyroiditi Spirit s - [facility] [id number] Other Problem Common specified Spirit hypothyroi - [facility] dism [facility] [id number] Atopic Problem Common dermatitis Spirit , - [facility] unspecifie [facility] [id number] Body mass Problem Com mon index Spirit [BMI] - [facility] 37.0-37.9, [facility] [id number] Morbid Problem Commo n 9104 (severe) Spirit obesity - [facility] due to [facility] [id number] Bladder Problem Commo n wall Spirit thickening - [facility] [id number] Bladder Problem Commo n diverticul [facility] Benign BPH Problem Common prostatic (benign Spirit hyperplasi prostatic - C HI a hyperplasi St a) [facility] Insomnia Insomnia Problem Commo n [facility] Gastroesop GERD Problem Commo n hageal (gastroeso Spirit reflux [facility] disease reflux St disease) [facility] Polyarthra Polyarthra Problem C ommon lgia lgia [facility] Obese BMI Problem Common class I 33.0-33.9, Spiri t adult [facility] Benign Benign Problem Common essential essential Spir it hypertensi hypertensi [facility] on on [facility] Asthma Asthma Problem Common [facility] Obesity Other Problem Common obesity [facility] Chronic Hep C w/o Problem Commo n hepatitis coma, Spirit C chronic [facility] Hyperlipid HLD Problem Commo n aemia (hyperlipi Spirit demia) [facility] Allergies, Adverse Reactions, Alerts Allergy Allergy Status Severity Reaction(s) Onset Inactive Treating Comm ents Source Name Type Date Date Clinician NO KNOWN Drug Active Univers ALLERGIE Class ity of S [facility] Social History Social Habit Start Date Stop Date Quantity Comments Source History of Tobacco Use Co mmon [facility] Sex Assigned At Com [facility] Smoking Status Start Date Stop Date Source Former Smoker 2022-11-04 00:00:00 2022-11-04 00:00:00 Common S [facility] Medications Ordered Filled Start Stop Current Ordering [...] MG HCl 100 MG HCl 100 MG Vital Signs Vital Name Observation Time Observation Value Comments Source height 2022-11-04 10:00:00 65 [in_i] [facility] weight 2022-11-04 10:00:00 216 [lb_av] [facility] bmi 2022-11-04 10:00:00 35.94 kg/m2 [facility] height 2022-09-26 11:30:00 65 [in_i] [facility] weight 2022-09-26 11:30:00 222 [lb_av] [facility] temperature 2022-09-26 11:30:00 98 [degF] [facility] bmi 2022-09-26 11:30:00 36.94 kg/m2 [facility] blood pressure 2022-09-26 11:30:00 132 mm[Hg] Common [facility] - systolic [facility] blood pressure 2022-09-26 11:30:00 76 mm[Hg] Common Spirit - diastolic [facility] height 2022-08-04 09:50:00 65 [in_i] [facility] weight 2022-08-04 09:50:00 222.6 [lb_av] Common Spirit - [facility] temperature 2022-08-04 09:50:00 97.7 [degF] Common S pirit [facility] bmi 2022-08-04 09:50:00 37.04 kg/m2 [facility] oximetry 2022-08-04 09:50:00 97 % Common S pirit [facility] respiratory rate 2022-08-04 09:50:00 18 /min Comm on [facility] blood pressure 2022-08-04 09:50:00 142 mm[Hg] Common [facility] - systolic [facility] blood pressure 2022-08-04 09:50:00 78 mm[Hg] Common Spirit - diastolic [facility] height 2022-06-27 10:10:00 65 [in_i] Common [facility] weight 2022-06-27 10:10:00 231 [lb_av] Common S pirit [facility] temperature 2022-06-27 10:10:00 97.9 [degF] [facility] bmi 2022-06-27 10:10:00 38.44 kg/m2 [facility] oximetry 2022-06-27 10:10:00 94 % Common S [facility] respiratory rate 2022-06-27 10:10:00 18 /min Comm on [facility] blood pressure 2022-06-27 10:10:00 135 mm[Hg] Common Spirit - systolic [facility] blood pressure 2022-06-27 10:10:00 76 mm[Hg] Common Spirit - diastolic [facility] height 2022-03-28 07:50:00 67 [in_i] Common S pirit [facility] weight 2022-03-28 07:50:00 224 [lb_av] [facility] temperature 2022-03-28 07:50:00 98 [degF] Common S pirit [facility] bmi 2022-03-28 07:50:00 35.08 kg/m2 Common S pirit - [facility] blood pressure 2022-03-28 07:50:00 130 mm[Hg] Common Spirit - systolic [facility] blood pressure 2022-03-28 07:50:00 76 mm[Hg] Common Spirit - diastolic [facility] height 2021-11-29 08:00:00 67 [in_i] Common S pirit - [facility] weight 2021-11-29 08:00:00 226 [lb_av] Common S pirit - [facility] temperature 2021-11-29 08:00:00 97.9 [degF] Common S pirit - [facility] bmi 2021-11-29 08:00:00 35.39 kg/m2 Common S pirit [facility] blood pressure 2021-11-29 08:00:00 132 mm[Hg] Common Spirit - systolic [facility] blood pressure 2021-11-29 08:00:00 76 mm[Hg] Common Spirit - diastolic [facility] height 2021-08-15 16:00:00 67 [in_i] Common S pirit - [facility] weight 2021-08-15 16:00:00 223.0 [lb_av] [facility] - [facility] temperature 2021-08-15 16:00:00 97.1 [degF] Common S pirit [facility] bmi 2021-08-15 16:00:00 34.92 kg/m2 Common S pirit - [facility] oximetry 2021-08-15 16:00:00 96 % [facility] S pirit [facility] respiratory rate 2021-08-15 16:00:00 18 /min Comm on Spirit - [facility] blood pressure 2021-08-15 16:00:00 138 mm[Hg] Common Spirit - systolic [facility] blood pressure 2021-08-15 16:00:00 70 mm[Hg] Common Spirit - diastolic [facility] height 2021-07-12 08:00:00 67 [in_i] Common S pirit - [facility] weight 2021-07-12 08:00:00 232 [lb_av] Common [facility] temperature 2021-07-12 08:00:00 97.4 [degF] Common [facility] bmi 2021-07-12 08:00:00 36.33 kg/m2 Common [facility] blood pressure 2021-07-12 08:00:00 128 mm[Hg] Common [facility] - systolic [facility] blood pressure 2021-07-12 08:00:00 82 mm[Hg] Common [facility] - diastolic [facility] Procedures This patient has no known procedures. Encounters Start End Encounter Admission Attending Care Care Encounter Source Date/Time Date/Time Type Type Clinicians Facility Department ID 2023-06-10 Outpatient Rhoades, STLMLC STLMLC [id number] Common 10:23:00 Naresh 47830 [facility] 2023-05-29 Outpatient Rhoades, STLMLC STLMLC [id number] Common 10:38:00 Naresh 95877 [facility] 2023-03-06 Outpatient Rhoades, STLMLC STLMLC [id number] Common 10:15:01 Naresh [id number] [facility] 2022-12-10 Outpatient Rhoades, STLMLC STLMLC [id number] Common 11:15:01 Naresh [id number] [facility] 2022-11-04 Outpatient Rhoades, STLMLC STLMLC [id number] Common 08:11:01 Naresh 14235 [facility] 2022-09-25 Outpatient Rhoades, STLMLC STLMLC [id number] Common 10:19:01 Naresh 96770 [facility] 2021-11-20 Outpatient Rhoades, STLMLC STLMLC [id number] Common 14:04:32 Naresh 22249 [facility] 2021-11-20 Outpatient Rhoades, STLMLC STLMLC [id number] Common 13:50:27 Naresh 62359 [facility] 2021-11-20 Outpatient Rhoades, STLMLC STLMLC [id number] Common 13:41:58 Naresh 92586 [facility] 2021-11-20 Outpatient Rhoades, STLMLC STLMLC [id number] Common 13:09:12 Naresh 83951 [facility] 2021-11-20 Outpatient Rhoades, STLMLC STLMLC [id number] Common 13:07:29 Naresh [id number] [facility] 2021-11-20 Outpatient Rhoades, STLMLC STLMLC [id number] Common 13:05:13 Naresh 73269 [facility] 2021-11-20 Outpatient Rhoades, STLMLC STLMLC [id number] Common 13:04:48 Naresh [id number] [facility] 2021-11-20 Outpatient STLMLC STLMLC [id number] Common 12:44:19 97839 [facility] 2021-11-20 Outpatient Joaquin, STLMLC STLMLC [id number] Common 12:12:37 Janet [id number] [facility] 2021-11-20 Outpatient Joaquin, STLMLC STLMLC [id number] Common 12:12:16 Janet [id number] [facility] 2021-11-20 Outpatient Joaquin, STLMLC STLMLC [id number] Common 12:11:47 Janet 20755 [facility] 2021-11-20 Outpatient Joaquin, STLMLC STLMLC [id number] Common 12:09:18 Janet 29055 [facility] 2021-11-20 Outpatient Joaquin, STLMLC STLMLC [id number] Common 12:07:34 Janet [id number] [facility] 2021-11-20 Outpatient Joaquin, STLMLC STLMLC [id number] Common 12:06:22 Janet 34396 [facility] 2021-11-20 Outpatient Joaquin, STLMLC STLMLC [id number] Common 12:02:18 Janet [id number] [facility] 2021-11-20 Outpatient Joaquin, STLMLC STLMLC [id number] Common 12:00:36 Janet [id number] [facility] 2022-11-04 2022-11-04 (TEL) STLMLC STLMLC [id number] Co mmon 00:00:00 00:00:00 [facility] 2022-11-04 2022-11-04 OFFICE STLMLC STLMLC [id number] Co mmon 00:00:00 00:00:00 VISIT EST Spir it PT LEVEL 3 [facility] 2022-09-26 2022-09-26 OFFICE STLMLC STLMLC [id number] Co mmon 00:00:00 00:00:00 VISIT [facility] ESTAB PT - [facility] LEVEL 4 [facility] 2022-09-24 2022-09-24 OFFICE STLMLC STLMLC [id number] Co mmon 00:00:00 00:00:00 VISIT EST Spir it PT LEVEL 3 - [facility] 2022-09-23 2022-09-23 (TEL) STLMLC STLMLC [id number] Co mmon 00:00:00 00:00:00 [facility] 2022-09-12 2022-09-12 (TEL) STLMLC STLMLC [id number] Co mmon 00:00:00 00:00:00 [facility] 2022-09-09 2022-09-09 (TEL) STLMLC STLMLC [id number] Co mmon 00:00:00 00:00:00 [facility] 2022-08-04 2022-08-04 (HOSP F/U) STLMLC STLMLC [id number] Common 00:00:00 00:00:00 Hospital [facility] 2022-08-01 2022-08-01 (TEL) STLMLC STLMLC [id number] Co mmon 00:00:00 00:00:00 [facility] 2022-08-01 2022-08-01 (TEL) STLMLC STLMLC [id number] Co mmon 00:00:00 00:00:00 [facility] 2022-06-27 2022-06-27 (WELLNESS) STLMLC STLMLC [id number] Common 00:00:00 00:00:00 Wellness Spiri t Visit [facility] 2022-03-28 2022-03-28 OFFICE STLMLC STLMLC [id number] Co mmon 00:00:00 00:00:00 VISIT Spirit ESTAB PT - [facility] LEVEL 4 [facility] 2021-11-29 2021-11-29 OFFICE STLMLC STLMLC [id number] Co mmon 00:00:00 00:00:00 VISIT Spirit ESTAB PT - [facility] LEVEL 4 [facility] 2021-11-11 2021-11-11 (TEL) STLMLC STLMLC [id number] Co mmon 00:00:00 00:00:00 [facility] 2021-08-15 2021-08-15 OFFICE STLMLC STLMLC [id number] Co mmon 00:00:00 00:00:00 VISIT EST Spir it PT LEVEL 3 [facility] 2021-08-15 2021-08-15 (TEL) STLMLC STLMLC [id number] Co mmon 00:00:00 00:00:00 [facility] 2021-07-19 2021-07-19 (TEL) STLMLC STLMLC [id number] Co mmon 00:00:00 00:00:00 [facility] 2021-07-12 2021-07-12 OFFICE STLMLC STLMLC [id number] Co mmon 00:00:00 00:00:00 VISIT [facility] ESTAB PT - CHI LEVEL 4 [facility] 2021-06-18 2021-06-18 Outpatient STLMLC STLMLC [id number] Common 00:00:00 00:00:00 [facility] 2021-06-18 2021-06-18 Outpatient STLMLC STLMLC [id number] Common 00:00:00 00:00:00 [facility] 2021-06-14 2021-06-14 Outpatient STLMLC STLMLC [id number] Common 00:00:00 00:00:00 [facility] 2021-03-12 2021-03-12 Outpatient STLMLC STLMLC [id number] Common 00:00:00 00:00:00 [facility] 2021-01-17 2021-01-17 Outpatient STLMLC STLMLC [id number] Common 00:00:00 00:00:00 [facility] 2021-01-08 2021-01-08 Outpatient Nish ZEB [facility] [id number] Univers 14:00:00 14:00:00 PRICILLA [id number] [facility] 2021-01-08 2021-01-08 Outpatient Nihs CARRINGTON, [facility] [id number] Univers 14:00:00 14:00:00 PRICILLA [facility] 2020-12-18 2020-12-18 Outpatient Nish CARRINGTON [facility] [id number] Univers 16:30:00 16:30:00 PRICILLA [facility] 2020-12-18 2020-12-18 Outpatient Nish CARRINGTON [facility] [id number] Univers 16:30:00 16:30:00 PRICILLA [id number] [facility] 2020-10-05 2020-10-05 Outpatient STLMLC STLMLC [id number] Common 00:00:00 00:00:00 [facility] 2020-09-14 2020-09-14 Outpatient STLMLC STLMLC [id number] Common 00:00:00 00:00:00 [facility] 2020-08-31 2020-08-31 Outpatient STLMLC STLMLC [id number] Common 00:00:00 00:00:00 [facility] 2020-08-28 2020-08-28 Outpatient STLMLC STLMLC [id number] Common 00:00:00 00:00:00 [facility] 2020-08-24 2020-08-24 Outpatient STLMLC STLMLC [id number] Common 00:00:00 00:00:00 [facility] Results Test Description Test Time Test Comments Results Result Comments Source STREP A RAPID 2022-11-04 Result 00:00:00 POC, COVID 19 POC, COVID 19 Antigen + Flu by Antigen + Flu Naida by Naida
--- NOTE | 2023-08-02 16:55 | RAD REPORT ---
EXAM DESCRIPTION: RAD - Ankle Right 3 View - 08/02/2023 4:49 pm CLINICAL HISTORY: PAIN COMPARISON: Ankle Right 3 View dated 08/18/2017 FINDINGS/IMPRESSION: No acute fracture. No malalignment. Dorsal aspect calcaneal spur.
--- NOTE | 2023-08-02 17:19 | ER ---
Nurse's Notes [facility] Name: Cristopher Larson Age: 62 yrs Sex: Male : 1960 Arrival Date: 08/02/2023 Time: 15:36 Bed IW1 Private MD: Diagnosis: Nasal congestion;Pain in right ankle and joints of right foot Presentation: 08/02 15:46 Chief complaint: Right ankle pain and swelling x 1 week, also c/o sinus congestion x 2 hb days. Denies injury/cough/fever. Stopped taking Meloxicam about a month ago. Coronavirus screen: Client presents with at least one sign or symptom that may indicate coronavirus-19. Provider contacted for isolation considerations. Ebola Screen: No symptoms or risks identified at this time. Initial Sepsis Screen: Does the patient meet any 2 criteria? No. Patient's initial sepsis screen is negative. Does the patient have a suspected source of infection? No. Patient's initial sepsis screen is negative. Risk Assessment: Do you want to hurt yourself or someone else? Patient reports no desire to harm self or others. Onset of symptoms was July 27, 2023. 15:46 Method Of Arrival: Ambulatory hb 15:46 Acuity: MARTY 4 hb Triage Assessment: 15:50 General: Appears in no apparent distress. Behavior is calm, cooperative. Pain: Pain hb currently is 8 out of 10 on a pain scale. Neuro: Level of Consciousness is awake, alert, obeys commands, Oriented to person, place, time, situation. Cardiovascular: Patient's skin is warm and dry. Respiratory: Respiratory effort is even, unlabored, Respiratory pattern is regular, symmetrical. Musculoskeletal: Reports right ankle pain and swelling. Historical: - Home Meds: 15:48 Albuterol Inhl [Active]; amlodipine oral [Active]; Hydroxyzine Oral [Active]; hb lisinopril-hydrochlorothiazide Oral 1 tab [Active]; meloxicam Oral [Active]; Omeprazole Oral [Active]; Symbicort inhalation [Active]; Trazodone Oral [Active]; - PMHx: 15:48 Asthma; Hypertension; Hepatitis; osteoarthritis; hb - PSHx: 15:48 hernia; Shoulder; hb - Immunization history:: Adult Immunizations up to date. - Social history:: Smoking status: Patient denies any tobacco usage or history of. Vital Signs: 15:46 BP 158 / 77; Pulse 76; Resp 16; Temp 98.8(TE); Pulse Ox 98% on R/A; Weight 99.79 kg; hb Height 5 ft. 5 in. ; Pain 8/10; 15:46 Body Mass Index 36.61 (99.79 kg, 165.1 cm) hb 15:46 Pain Scale: Adult hb ED Course: 15:40 Patient arrived in ED. rg4 15:42 Hilda Mendoza FNP-C is [facility]. kb 15:42 Selwyn Barrientos MD is Attending Physician. kb 15:42 Anabel Fabian [facility]-C [facility]. sb4 15:48 Triage completed. hb 15:50 Arm band placed on. hb 16:50 Ankle Right 3 View XRAY In Process Unspecified. EDMS Administered Medications: No medications were administered Outcome: 17:19 Discharge ordered by . kb 17:39 Patient left the ED. hb Signatures: Dispatcher [employer] EDMS Hilda Mendoza FNP-C FNP-Ckb Baxter, Heather, RN RN Sadia Duong rg4 Anabel Fabian PA-C PA-C sb4 Corrections: (The following items were deleted from the chart) 15:50 15:46 Chief complaint: Right ankle pain and swelling x 1 week, also c/o sinus hb congestion x 2 days. Denies injury hb 15:50 15:46 Acuity: MARTY 3 hb hb
--- NOTE | 2023-08-02 17:20 | EDPHYS ---
Physician Documentation [facility] Name: Cristopher Black Age: 62 yrs Sex: Male : 1960 Arrival Date: 08/02/2023 Time: 15:36 Bed IW1 Private MD: ED Physician Selwyn Barrientos HPI: 08/02 17:38 This 62 yrs old Black Male presents to ER via Ambulatory with complaints of Ankle kb Injury, Flu Symptoms. 17:38 The patient presents with pain, swelling. The complaints affect the right ankle. Onset: kb The symptoms/episode began/occurred 1 week(s) ago. Context: resulted from The patient can fully bear weight on the affected extremity. Associated signs and symptoms: Pertinent positives: swelling, Pertinent negatives: calf tenderness, fever, nausea, numbness, rash, tingling, vomiting, warmth, weakness. Modifying factors: The symptoms are alleviated by nothing, the symptoms are aggravated by nothing. Severity of symptoms: At their worst the symptoms were moderate, in the emergency department the symptoms are unchanged. The patient has experienced similar episodes in the past. The patient has not recently seen a physician. Pt reports he has had swelling and pain in right ankle in the past, but normally takes meloxicam for it so it has been under control. States his PCP took him off of meloxicam one week ago and he has had ankle swelling and pain since stopping it. Also reports sinus congestion for a few days. . Historical: - Home Meds: 15:48 Albuterol Inhl [Active]; amlodipine oral [Active]; Hydroxyzine Oral [Active]; hb lisinopril-hydrochlorothiazide Oral 1 tab [Active]; meloxicam Oral [Active]; Omeprazole Oral [Active]; Symbicort inhalation [Active]; Trazodone Oral [Active]; - PMHx: 15:48 Asthma; Hypertension; Hepatitis; osteoarthritis; hb - PSHx: 15:48 hernia; Shoulder; hb - Immunization history:: Adult Immunizations up to date. - Social history:: Smoking status: Patient denies any tobacco usage or history of. ROS: 17:36 Constitutional: Negative for fever, chills, and weight loss, kb 17:36 ENT: Positive for sinus congestion, 17:36 MS/extremity: Positive for pain, swelling, of the right ankle, 17:36 All other systems are negative, Exam: 17:36 Constitutional: This is a well developed, well nourished patient who is awake, alert, kb and in no acute distress. Head/Face: Normocephalic, atraumatic. ENT: Moist Mucous membranes Cardiovascular: Regular rate Respiratory: Respirations even and unlabored. No increased work of breathing. Talking in full sentences Skin: Warm, dry with normal turgor. Normal color. Neuro: Awake and alert, GCS 15, oriented to person, place, time, and situation. Moves all extremities. Normal gait. 17:36 Musculoskeletal/extremity: Extremities: grossly normal except: noted in the right ankle: pain, swelling, tenderness, ROM: intact in all extremities, Circulation is intact in all extremities. Sensation intact. Weight bearing: able to fully bear weight, Vital Signs: 15:46 BP 158 / 77; Pulse 76; Resp 16; Temp 98.8(TE); Pulse Ox 98% on R/A; Weight 99.79 kg; hb Height 5 ft. 5 in. ; Pain 8/10; 15:46 Body Mass Index 36.61 (99.79 kg, 165.1 cm) hb 15:46 Pain Scale: Adult hb MDM: 15:46 Patient medically screened. kb 17:37 Differential diagnosis: fracture, sprain, arthritis, gout. Data reviewed: vital signs, kb nurses notes. Counseling: I had a detailed discussion with the patient and/or guardian regarding the historical points, exam findings, and any diagnostic results supporting the discharge/admit diagnosis, radiology results, the need for outpatient follow up, a family practitioner, to return to the emergency department if symptoms worsen or persist or if there are any questions or concerns that arise at home. 08/02 15:52 Order name: Ankle Right 3 View XRAY; Complete Time: 17:07 kb Administered Medications: No medications were administered Disposition: 18:09 Co-signature as Attending Physician, Selwyn Barrientos MD I reviewed the patient's care rn provided by the Advanced Practice Provider and agree with the diagnosis and treatment plan. Disposition Summary: 08/02/23 17:19 Discharge Ordered Notes: Location: Home kb Condition: Stable kb Diagnosis - Nasal congestion kb - Pain in right ankle and joints of right foot kb Followup: kb - With: Emergency Department - When: As needed - Reason: Worsening of condition Followup: kb - With: Private Physician - When: 2 - 3 days - Reason: Recheck today's complaints, Continuance of care, Re-evaluation by your physician Discharge Instructions: - Musculoskeletal Pain kb - Sinusitis, Adult, Crzb-[id number] kb - Discharge Summary Sheet hb Forms: - Medication Reconciliation Form kb - Thank You Letter kb - Antibiotic Education kb - Prescription Opioid Use kb - Patient Portal Instructions kb - Leadership Thank You Letter kb - Work release form hb Prescriptions: - meloxicam 15 mg Oral tablet - take 1 tablet ORAL route daily; 20 tablet; Refills: 0, Product Selection kb Permitted - Medrol (Tree) 4 mg Oral Tablets, Dose Pack - take 1 tablet ORAL route as directed - follow package instructions; 1 packet; kb Refills: 0, Product Selection Permitted Signatures: Dispatcher [employer] Hilda Jordan, YARA-C YARA-Selwyn Weir MD MD rn Kim Mayen RN RN hb
[2023-08-02 18:22] VITALS: BP 158/77; TEMP 98.8; O2SAT 98
== END 2023-08-02 17:39 | disposition home or self-care (01) ==
LOC: ER 15:36
DX: M25.571 Pain in right ankle and joints of right foot (principal); R09.81 Nasal congestion; I10 Essential (primary) hypertension; J45.909 Unspecified asthma, uncomplicated
CPT/HCPCS: 99281